=== PATIENT | female | born 1975 | race Caucasian/White ===

== ENCOUNTER 2018-01-03 19:36 | Inpatient (IN) | payer OTHER ==
[2018-01-03] MEDS ORDERED: SODIUM CHLORIDE 0.9% 1,000 ML IV ONE ×4 (19:56→23:13)
[2018-01-03] MEDS ORDERED: HYDROmorphone 1 MG/ML CARPUJECT IVP STA ×3 (19:56→23:13)
[2018-01-03] MEDS ORDERED: ONDANSETRON 4 MG/2 ML VIAL IVP STA (19:56)
--- NOTE | 2018-01-03 20:05 | ED Physician Documentation ---
PD HPI ABD PAIN - Stated complaint Stated Complaint: ABD PAIN - Chief complaint Chief Complaint: Abd Pain - History obtained from History obtained from: Patient, Family - History of Present Illness Timing - onset: Today Timing - duration: Days (1) Timing - details: Abrupt onset Pain level max: 10 Pain level now: 10 Quality: Cramping Location: All over / everywhere Radiation: Other (non-radiating) Improved by: Other (nothing) Worsened by: Eating (started after eating brisket.) Associated symptoms: Nausea, Vomiting. No: Fever, Hematemesis, Diarrhea, Constipation Similar symptoms before: Has not had sx before Recently seen: Not recently seen Review of Systems Ten Systems: 10 systems reviewed and negative Constitutional: denies: Fever, Chills Ears: denies: Ear pain Nose: denies: Rhinorrhea / runny nose, Congestion Throat: denies: Sore throat Cardiac: denies: Chest pain / pressure Respiratory: denies: Cough Skin: denies: Rash Musculoskeletal: denies: Neck pain, Back pain Neurologic: denies: Focal weakness, Numbness, Headache PD PAST MEDICAL HISTORY - Past Medical History Past Medical History: No - Past Surgical History Past Surgical History: No - Present Medications Home Medications: Ambulatory Orders Medication Instructions Recorded Confirmed Lisinopril 01/03/18 metFORMIN [Glucophage] 01/03/18 - Allergies Allergies/Adverse Reactions: Allergies Allergy/AdvReac Type Severity Reaction Status Date / Time No Known Drug Allergies Allergy Verified 01/03/18 19:50 - Living Situation Living Situation: reports: With family Living Arrangement: reports: At home - Social History Does the pt smoke?: No Does the pt drink ETOH?: No Does the pt have substance abuse?: No - Family History Family history: reports: Non contributory PD ED PE NORMAL - Vitals Vital signs reviewed: Yes - General General: Alert and oriented X 3, Other (very uncomfortable appearing.) - HEENT HEENT: Moist mucous membranes - Neck Neck: Supple, no meningeal sign - Cardiac Cardiac: RRR, Strong equal pulses - Respiratory Respiratory: No respiratory distress, Clear bilaterally - Abdomen Abdomen: Soft, Other (diffusely TTP ) - Back Back: No spinal TTP - Derm Derm: Warm and dry - Extremities Extremities: No edema - Neuro Neuro: Alert and oriented X 3 Results - Vitals Vitals: Vital Signs - 24 hr 09/01/03/18 01/03/18 19:47 21:12 21:46 Temperature 35.5 C L Heart Rate 92 80 81 Respiratory 23 18 18 Rate Blood Pressure 88/65 L 93/68 106/81 H O2 Saturation 100 100 100 01/04/18 00:01 Temperature Heart Rate 99 Respiratory 15 Rate Blood Pressure 128/90 H O2 Saturation 100 Oxygen O2 Source Nasal cannula - Labs Labs: Laboratory Tests 01/03/18 01/03/18 20:32 20:32 WBC 13.8 H RBC 5.37 Hgb 14.8 Hct 42.5 MCV 79.1 L MCH 27.5 MCHC 34.8 RDW 15.3 H Plt Count 237 MPV 7.3 L Neut # (Auto) 11.3 H Lymph # (Auto) 1.6 Ward # (Auto) 0.7 Eos # (Auto) 0.1 Baso # (Auto) 0.1 Absolute Nucleated RBC 0.01 Nucleated RBC % 0.1 Sodium 133 L Potassium 3.2 L Chloride 101 Carbon Dioxide 22 Anion Gap 10.0 BUN 21 H Creatinine 1.0 Estimated GFR (MDRD) 61 L Glucose 267 H Calcium 8.7 Total Bilirubin 2.3 H AST 127 H ALT 58 Alkaline Phosphatase 98 Total Protein 6.6 L Albumin 3.6 Globulin 3.0 Albumin/Globulin Ratio 1.2 Lipase > 4800 H - Rads (name of study) CT abd/pelvis Radiology: Prelim report reviewed, EMP read contemporaneously, See rad report (1. Pancreatitis with a large amount of peripancreatic edema extending into the root of the mesentery and bilateral anterior pararenal spaces. 2. Some areas of the pancreas appear slightly hypoperfused, such as the neck. Early necrosis not excluded. 3. Fatty liver and splenomegaly. 4. Mild ascites. 5. Calcified stones in the gallbladder without definite cholecystitis. ) RUQ US Radiology: Prelim report reviewed, EMP read contemporaneously, See rad report (Cholelithiasis, without evidence of biliary obstruction. ascites) PD MEDICAL DECISION MAKING - ED course Complexity details: reviewed results, re-evaluated patient, considered differential, d/w patient, d/w family, d/w immigration consultant ED course: Patient is a 42-year-old female with a history of diabetes, on metformin who presents to the emergency department with acute pancreatitis. Also has several gallstones but no cholecystitis. Given IV fluids, Phenergan, Zofran and Dilaudid. Pain well controlled. Discussed the case with Dr. Begum, hospitalist who accepts. He requested I consult general surgery and I discussed the case with general surgery on-call, Dr. Alcantara, who will consult and see the patient in the morning. This document was made in part using voice recognition software. While efforts are made to proofread this document, sound alike and grammatical errors may occur. Upon further history, she states that the pain is actually been ongoing for several days and saw her PCP yesterday. She was referred to gynecology for missed menses. - Sepsis Event Vital Signs: Vital Signs - 24 hr 01/03/18 01/03/18 01/03/18 19:47 21:12 21:46 Temperature 35.5 C L Heart Rate 92 80 81 Respiratory 23 18 18 Rate Blood Pressure 88/65 L 93/68 106/81 H O2 Saturation 100 100 100 01/04/18 00:01 Temperature Heart Rate 99 Respiratory 15 Rate Blood Pressure 128/90 H O2 Saturation 100 Oxygen O2 Source Nasal cannula Departure - Departure Disposition: [address] [facility] DC/Xfer Clinical Impression: Pancreatitis Qualifiers: Chronicity: acute Pancreatitis type: unspecified pancreatitis type Acute pancreatitis complication: unspecified Qualified Code(s): K85.90 - Acute pancreatitis without necrosis or infection, unspecified Condition: Stable
[2018-01-03] MEDS ORDERED: IOPAMIDOL-300 100 ML VIAL ONE (20:21)
[2018-01-03 20:50] LABS: BASOPHILS # (AUTO) 0.1 10^3/uL (0.0-0.1); BASOPHILS % (AUTO) 0.4 %; EOSINOPHILS # (AUTO) 0.1 10^3/uL (0.0-0.7); EOSINOPHILS % (AUTO) 0.5 %; HGB - HEMOGLOBIN 14.8 g/dL (12.0-16.0); LYMPHOCYTES # (AUTO) 1.6 10^3/uL (1.5-3.5); LYMPHOCYTES % (AUTO) 11.7 %; MEAN CORPUSCULAR HEMOGLOBIN 27.5 pg (27.0-31.0); MEAN CORPUSCULAR HGB CONC 34.8 g/dL (32.0-36.0); MEAN CORPUSCULAR VOLUME 79.1 fL (81.0-99.0); MEAN PLATELET VOLUME 7.3 fL (7.9-10.8); MONOCYTES # (AUTO) 0.7 10^3/uL (0.0-1.0); NEUTROPHILS # (AUTO) 11.3 10^3/uL (1.5-6.6); NEUTROPHILS % (AUTO) 82.4 %; PLT - PLATELET COUNT 237 10^3/uL (130-450); RED BLOOD COUNT 5.37 10^6/uL (4.20-5.40); RED CELL DISTRIBUTION WIDTH 15.3 % (12.0-15.0); WHITE BLOOD COUNT 13.8 x10^3/uL (4.8-10.8)
[2018-01-03 21:43] LABS: ALBUMIN 3.6 g/dL (3.2-5.5); ALBUMIN/GLOBULIN RATIO 1.2 (1.0-2.2); ALKALINE PHOSPHATASE 98 IU/L (42-121); ALT ALANINE AMINOTRANSFERASE 58 IU/L (10-60); AST ASPARTATE AMINOTRANSFERASE 127 IU/L (10-42); BILIRUBIN,TOTAL 2.3 mg/dL (0.2-1.0); BUN - BLOOD UREA NITROGEN 21 mg/dL (6-20); CALCIUM 8.7 mg/dL (8.5-10.3); CARBON DIOXIDE - CO2 22 mmol/L (21-32); CHLORIDE 101 mmol/L (101-111); GFR - MDRD 61 (>89); GLUCOSE 267 mg/dL (70-100); LIPASE > 4800 U/L (22-51); SODIUM 133 mmol/L (135-145); TOTAL PROTEIN 6.6 g/dL (6.7-8.2)
[2018-01-03] MEDS ORDERED: IOPAMIDOL-300 100 ML VIAL IVP ONE (22:34)
--- NOTE | 2018-01-03 22:59 | CT Report ---
Reason: diffuse abd pain, vomiting Procedure Date: 01/03/2018 Accession Number: [id number] / [id number] Procedure: CT - Abdomen/Pelvis W/ CPT Code: FULL RESULT: EXAM: CT ABDOMEN AND PELVIS EXAM DATE: 01/03/2018 10:45 PM. CLINICAL HISTORY: Diffuse abdominal pain, vomiting. COMPARISONS: None. TECHNIQUE: Routine helical CT imaging was performed through the abdomen and pelvis. IV contrast: ISOVUE 300 100mL. Enteric contrast: No. Reconstructions: Coronal and sagittal. In accordance with CT protocol optimization, one or more of the following dose reduction techniques were utilized for this exam: automated exposure control, adjustment of mA and/or KV based on patient size, or use of iterative reconstructive technique. FINDINGS: Lung Bases: Mild bibasilar atelectasis. Liver: Fatty infiltration. Gallbladder/Bile Ducts: Calcified stones in the gallbladder without obvious cholecystitis. Spleen: Enlarged at 14.0 cm. Pancreas: Extensive peripancreatic edema extending into the root of the mesentery and bilateral anterior pararenal spaces. Some areas of the pancreas appear slightly hypoperfused, such as the neck. No abscess or pseudocyst identified. Adrenal Glands: Normal. Kidneys: Normal. No masses or hydronephrosis. Peritoneal Cavity/Bowel: Mild ascites. No free air. No bowel obstruction seen. No diverticulitis. No lymphadenopathy. Appendix appears normal. Pelvic Organs: Normal. The bladder and visualized pelvic organs are within normal limits. Vasculature: No aneurysms or other significant abnormality. Bones: No significant abnormality. Other: None. IMPRESSION: 1. Pancreatitis with a large amount of peripancreatic edema extending into the root of the mesentery and bilateral anterior pararenal spaces. 2. Some areas of the pancreas appear slightly hypoperfused, such as the neck. Early necrosis not excluded. 3. Fatty liver and splenomegaly. 4. Mild ascites. 5. Calcified stones in the gallbladder without definite cholecystitis. RADIA
[2018-01-03] MEDS ORDERED: PROMETHAZINE INJ 25 MG in SODIUM CHLORIDE 0.9% 50 ML IV STA (23:13)
--- NOTE | 2018-01-03 23:46 | Ultrasound Report ---
Reason: pancreatitis Procedure Date: 01/03/2018 Accession Number: [id number] / [id number] Procedure: US - Abdomen Limited CPT Code: FULL RESULT: EXAM: ABDOMEN ULTRASOUND LIMITED, RUQ EXAM DATE: 01/03/2018 11:03 PM. CLINICAL HISTORY: Pancreatitis. COMPARISON: ABDOMEN/PELVIS W/ 01/03/2018. TECHNIQUE: Real-time scanning was performed with static images obtained. FINDINGS: Liver: Liver demonstrates heterogeneous echotexture, suggestive of fatty infiltration. It measures 14.2 cm. Main portal vein flow: Hepatopetal. Gallbladder: Cholelithiasis. No wall thickening. Biliary System: CBD measures 5 mm. No intrahepatic or extrahepatic ductal dilatation. Other: No right hydronephrosis. Ascites. IMPRESSION: Cholelithiasis, without evidence of biliary obstruction. Ascites. RADIA
[2018-01-04] MEDS ORDERED: PROMETHAZINE 25 MG/1 ML VIAL IM PRN (00:23)
[2018-01-04] MEDS ORDERED: oxyCODONE 5 MG TABLET PO PRN ×2 (00:23)
[2018-01-04] MEDS ORDERED: ZOLPIDEM 5 MG TABLET PO PRN (00:23)
[2018-01-04] MEDS ORDERED: ACETAMINOPHEN 325 MG TABLET PO PRN (00:23)
[2018-01-04] MEDS ORDERED: PROCHLORPERAZINE 10 MG/2 ML VIAL IVP PRN (00:23)
--- NOTE | 2018-01-04 00:31 | HISTORY & PHYSICAL EXAMINATION ---
Chief Complaint - Chief Complaint Chief Complaint: Abdominal Pain History of Present Illness - Admitted From Admitted From:: Emergency Department - History Obtained From Records Reviewed: Yes History obtained from: Patient Exam Limitations: None - History of Present Illness HPI Comment/Other: Patient is a 42-year-old female with a past medical history significant for type 2 diabetes and obesity who presented to the emergency department with a chief complaint of abdominal pain. The patient states that her abdominal pain initially started about 2 weeks ago. She states that that time the abdominal pain was occurring off and on and was mild to moderate in intensity. She states that it was located in the epigastric to left upper quadrant area. She states over the last 2 weeks the abdominal pain has progressed gradually. Over the last week she is began to develop nausea associated with the abdominal pain. She states that over the last 3 days she has been having episodes of emesis. She states that the pain has also become much more severe. She states at its worst it is a 10 out of 10 pain. She states the pain has now become diffuse over the entire left side of her abdomen radiating to her back. She states that yesterday she did go see her primary care physician who advised that she go to the emergency department if the pain is truly that severe. The patient decided not to come to the emergency department. She states that today she continued to have nausea vomiting and abdominal pain which was up to a 10 out of 10. She states the abdominal pain was radiating to the back and she had decreased appetite. Prior to coming to the emergency department the patient did have dinner where she states she ate some briskits but was only able to eat very little due to the severe pain when she ate. She states that over the last 2 weeks she has noted that the pain is worse when she does eat. She also states that she has been feeling dizzy the last couple of days. She admits to chills but no fever. She states the only thing that makes the pain better is resting. She states that she has never had pain like this before. The patient does state that she started taking lisinopril just 2 days ago. She denies any polyuria or polydipsia. She denies any urinary urgency, frequency or dysuria. She denies any diarrhea. She denies any cough or chest pain. The patient denies any constipation or abdominal distention. The patient denies any alcohol use. Patient denies any headaches, blurred vision, runny nose, sore throat, nasal congestion, difficulty swallowing, shortness of air, orthopnea, PND, increased lower extremity swelling, palpitations, joint pain, joint swelling, muscle aches, neck stiffness, hair loss, skin rash, recent unintentional weight loss, night sweats or any focal neurologic deficits. On presentation to the emergency department the patient was afebrile, tachycardic with heart rate of 92 and hypotensive with a blood pressure 88/65. The patient appeared to be in significant distress as she was writhing in pain. The patient was also tachypneic with a respiratory rate of 23 but she was saturating well on room air. The patient underwent routine lab work which rev ealed a mild leukocytosis of 13.8, hyponatremia with a sodium of 133, hypokalemia with a potassium of 3.2, hyperglycemia with a glucose of 267, elevated bilirubin of 2.3, an elevated AST of 127 and an elevated lipase of greater than 4800. The patient had severe tenderness on abdominal examination a nd was complaining of severe pain. The patient underwent a CT of her abdomen and pelvis which revealed pancreatitis with large amount of peripancreatic edema extending into the root of the mesenteric and bilateral anterior pararenal spaces. She also had some areas of pancreas appearing slightly hypoperfused concerning for early necrosis. She is also found to have fatty liver and splenomegaly with mild ascites. The patient's gallbladder had calcified stones without definite cholecystitis. The patient underwent an abdominal ultrasound which revealed cholelithiasis without evidence of biliary obstruction. The patient was admitted to the medical oliva with pancreatitis likely secondary to g allstones. Surgery was notified in the emergency department and asked that the hospitalist team admit the patient and that they would see the patient in consultation. History - Past Medical History Cardiovascular: reports: Other (Obesity) Endocrine/Autoimmune: reports: Type 2 diabetes - Past Surgical History /MANAGER MEDICAL: reports: Tubal ligation - Family & Social History Family History: Mother: Diabetes, Type 2, Father: Diabetes, Type 2 Living arrangement: At home Living Situation: With spouse/s.o., With family Social History Notes: Patient and her recently moved up to [place] from [place]. The patient lives in [place] with her to whom she has been for 21 years and her 3 children. 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 She denies any history of tobacco use, alcohol use or any illicit drug use. - POLST Patient has POLST: No POLST Status: Full Code Meds/Allgy - Home Medications Home Medications: Ambulatory Orders Medication Instructions Recorded Confirmed Lisinopril 01/03/18 metFORMIN [Glucophage] 01/03/18 - Allergies Allergies/Adverse Reactions: Allergies Allergy/AdvReac Type Severity Reaction Status Date / Time No Known Drug Allergies Allergy Verified 01/03/18 19:50 Review of Systems - Other Findings Other Findings: A comprehensive review of systems was performed the pertinent positives and negatives are stated above in the HPI and the remainder of the review of systems is negative. Exam - Vital Signs Reviewed Vital Signs: Yes Vital Signs: Vital Signs x48h Temp Pulse Resp BP Pulse Ox 01/04/18 00:01 99 15 128/90 H 100 01/03/18 21:46 81 18 106/81 H 100 01/03/18 21:12 80 18 93/68 100 01/03/18 19:47 35.5 C L 92 23 88/65 L 100 - Physical Exam General Appearance: positive: Moderate distress (severe pain, cannot seem to get comfortable in the bed), Lethargic Eyes Bilateral: positive: Normal inspection, PERRL, EOMI, No lid inflammation, Conjunctivae nml, No scleral icterus ENT: positive: ENT inspection nml, Pharynx nml, Dry mucous membranes. negative: Purulent nasal drainage, Pharyngeal erythema, Oral lesions Neck: positive: Nml inspection, Thyroid nml, No JVD, Trachea midline. negative: Thyromegaly, Lymphadenopathy (R), Lymphadenopathy (L), Carotid bruit, Tracheal deviation Respiratory: positive: Chest non-tender, Breath sounds nml, Other (Tachypnic). negative: Wheezes, Rales, Rhonchi Cardiovascular: positive: No murmur, No gallop, Tachycardia Peripheral Pulses: positive: 2+ Abdomen: positive: Tenderness (Severe tenderness with mild palpation, diffuse but worse on the left side of her abdomen), Guarding, Rebound, Splenomegaly Back: positive: Nml inspection. negative: CVA tenderness (R), CVA tenderness (L) Skin: positive: Color nml, No rash, Warm, Dry. negative: Cyanosis, Diaphoresis, Pallor Extremities: positive: Non-tender, Full ROM, Nml appearance, No pedal edema Neurologic/Psychiatric: positive: Oriented x3, CN's nml (2-12), Motor nml, Sensation nml, Mood/affect nml Conclusion/Plan - Problem List (1) Pancreatitis Conclusion/Plan: The patient presents with acute pancreatitis with symptoms going on for the last 2 weeks and becoming gradually worse and severe over the last 2 days with abdominal pain radiating to the back as well as associated nausea and vomiting. On presentation the patient did have a mildly elevated bilirubin of 2.3 with an elevated AST. The patient's abdominal ultrasound and CT both showed cholelithiasis without cholecystitis or obvious biliary ductal dilation. The patient's lipase was found to be greater than 4800. The patient does have a slightly elevated WBC. CT of the abdomen and pelvis shows severe pancreatitis with possible early necrosis of the pancreatic neck. The patient does have diffuse severe tenderness on examination but does not appear to be grossly septic. The patient's pancreatitis appears most likely to be gallstone pancreatitis as the patient is not a drinker and only started taking lisinopril 2 days ago. Plan: Supportive care IV fluids N.p.o. IV Dilaudid as needed for pain control IV Zofran, Compazine and Phenergan for nausea control We will hold off on giving antibiotics at this point as the patient does not clearly have necrotizing pancreatitis and has not spiked fever. If the patient does show worsening symptoms or begin spiking fever or has worsening WBC we will consider starting the patient on IV antibiotics. Lipid profile to look for hypertriglyceridemia Surgical consult for cholecystectomy Qualifiers: Chronicity: acute Pancreatitis type: unspecified pancreatitis type Acute pancreatitis complication: unspecified Qualified Code(s): K85.90 - Acute pancreatitis without necrosis or infection, unspecified (2) Cholelithiasis Conclusion/Plan: The patient does have cholelithiasis on CT and abdominal ultrasound. Although the patient does not have any biliary ductal dilation or cholecystitis at this time it is likely that the patient developed pancreatitis secondary to gallstone. The patient does have elevated bilirubin of 2.3 and slightly elevated AST. Plan: Surgical consult as patient likely needs a cholecystectomy for definitive treatment of her pancreatitis. Continue treatment of pancreatitis with IV fluids, bowel rest and symptom relief Qualifiers: Cholelithiasis location: gallbladder Cholecystitis presence: without cholecystitis Biliary obstruction: without biliary obstruction Qualified Code(s): K80.20 - Calculus of gallbladder without cholecystitis without obstruction (3) Diabetes Conclusion/Plan: The patient has a history of type 2 diabetes and uses metformin at home. She was also recently started on lisinopril for proteinuria. On presentation the patient does have an elevated blood glucose of 267. This is likely secondary to the stress response from ongoing pancreatitis. Plan: Patient will be placed on n.p.o. sliding scale insulin We will hold the patient's metformin while she is hospitalized We will check a hemoglobin A1c We will check blood glucose 4 times daily and monitor closely Once patient can eat we will start her on a diabetic diet. Qualifiers: Diabetes mellitus type: type 2 Diabetes mellitus chcf insulin use: without chcf use Diabetes mellitus complication status: with hyper glycemia Qualified Code(s): E11.65 - Type 2 diabetes mellitus with hyperg lycemia (4) Hypokalemia Conclusion/Plan: The patient has hypokalemia on presentation with a potassium of 3.2. This is likely secondary to persistent nausea and vomiting over the last few days. Patient will be given potassium replacement with IV fluid and we will continue to monitor the patient's potassium. (5) Hyponatremia Conclusion/Plan: The patient does have hyponatremia on presentation with a sodium of 133. The patient appears to have hypovolemic hyponatremia she does appear to be dehydrated secondary to her ongoing pancreatitis. The patient is likely third spacing due to her pancreatitis which will cause her severe dehydration if she is not given adequate fluid resuscitation. We will aggressively give the patient IV fluids and continue to monitor the patient's sodium. (6) Fatty liver Conclusion/Plan: The patient denies any history of liver disease. The patient does have fatty liver on CT of her abdomen and pelvis. Patient does have risk factors of d iabetes and obesity. Patient will need improved diabetic control and weight loss as well as exercise and avoidance of fatty foods to improve fatty liver disease. Given the ongoing pancreatitis this is not high-priority at this time. It is something the patient needs to focus as an outpatient. (7) Obesity (BMI 30.0-34.9) Conclusion/Plan: Patient is obese with a BMI of 33.2. The patient actually appears to have a greater BMI on examination. Either way the patient is obese. She does need to lose weight. She needs to improve her diet and exercise. The patient was given some counseling regarding this however again our focus right now is treatment o f her pancreatitis. - Lab Results Lab results reviewed: Yes Fish Bones: 01/03/18 20:32 01/03/18 20:32 Other Lab Results: Laboratory Results WBC 13.8 x10^3/uL (4.8-10.8) H 01/03/18 20:32 RBC 5.37 10^6/uL (4.20-5.40) 01/03/18 20:32 Hgb 14.8 g/dL (12.0-16.0) 01/03/18 20:32 Hct 42.5 % (37.0-47.0) 01/03/18 20: MCV 79.1 fL (81.0-99.0) L 01/03/18:32 MCH 27.5 pg (27.0-31.0) 01/03/18 20: MCHC 34.8 g/dL (32.0-36.0) 01/03/18: RDW 15.3 % (12.0-15.0) H 01/03/18 20:32 Plt Count 237 10^3/uL (130-450) 01/03/18 20:32 MPV 7.3 fL (7.9-10.8) L 01/03/18 20:32 Neut # (Auto) 11.3 10^3/uL (1.5-6.6) H 01/03/18 20:32 Lymph # (Auto) 1.6 10^3/uL (1.5-3.5) 01/03/18 20:32 [place] # (Auto) 0.7 10^3/uL (0.0-1.0) 01/03/18 20:32 Eos # (Auto) 0.1 10^3/uL (0.0-0.7) 01/03/18 20:32 Baso # (Auto) 0.1 10^3/uL (0.0-0.1) 01/03/18 20:32 Absolute Nucleated RBC 0.01 x10^3/uL 01/03/18 20:32 Nucleated RBC % 0.1 /100WBC 01/03/18 20:32 Sodium 133 mmol/L (135-145) L 01/03/18 20:32 Potassium 3.2 mmol/L (3.5-5.0) L 01/03/18 20:32 Chloride 101 mmol/L (101-111) 01/03/18 20:32 Carbon Dioxide 22 mmol/L (21-32) 01/03/18 20:32 Anion Gap 10.0 (6-13) 01/03/18 20:32 BUN 21 mg/dL (6-20) H 01/03/18 20:32 Creatinine 1.0 mg/dL (0.4-1.0) 01/03/18 20:32 Estimated GFR (MDRD) 61 (>89) L 01/03/18 20:32 Glucose 267 mg/dL (70-100) H 01/03/18 20:32 Calcium 8.7 mg/dL (8.5-10.3) 01/03/18 20:32 Total Bilirubin 2.3 mg/dL (0.2-1.0) H 01/03/18 20:32 AST 127 IU/L (10-42) H 01/03/18 20:32 ALT 58 IU/L (10-60) 01/03/18 20:32 Alkaline Phosphatase 98 IU/L (42-121) 01/03/18 20:32 Total Protein 6.6 g/dL (6.7-8.2) L 01/03/18 20:32 Albumin 3.6 g/dL (3.2-5.5) 01/03/18 20:32 Globulin 3.0 g/dL (2.1-4.2) 01/03/18 20:32 Albumin/Globulin Ratio 1.2 (1.0-2.2) 01/03/18 20:32 Lipase > 4800 U/L (22-51) H 01/03/18 20:32 - Diagnostic Imaging Results Diagnostic Imaging Results: positive: Final report reviewed Diagnostic Imaging Results Comments: Ultrasound abdomen Impression: Cholelithiasis, without evidence of biliary obstruction. Ascites. Abdomen/pelvis CT Impression: 1. Pancreatitis with a large amount of peripancreatic edema extending into the root of the mesenteric and bilateral anterior pararenal spaces. 2. Some areas of the pancreas appear slightly hypoperfused, such as the neck. Early necrosis not excluded. 3. Fatty liver and splenomegaly. 4. Mild ascites 5. Calcified stones in the gallbladder without definite cholecystitis. Core Measures - Anticipated LOS I expect patient to be DC'd or transferred within 96 hours.: Yes - DVT/VTE - Prophylaxis VTE/DVT Prophylaxis med ordered at admit?: Yes
[2018-01-04] MEDS: SODIUM CHLORIDE FLUSH 0.9% 10 ML SYRINGE IVP SCH ×3 (01:35→18:18)
[2018-01-04] MEDS: ONDANSETRON 4 MG/2 ML VIAL IVP PRN ×3 (01:35→18:19)
[2018-01-04] MEDS: HYDROmorphone 1 MG/ML CARPUJECT IVP PRN ×3 (01:56→09:08)
[2018-01-04] MEDS: NS W/20 MEQ KCL 1,000 ML IV SCH ×3 (02:10→18:19)
[2018-01-04] MEDS: SODIUM CHLORIDE FLUSH 0.9% 10 ML SYRINGE IVP PRN (03:50)
[2018-01-04 05:54] LABS: BASOPHILS % (AUTO) 0.1 %; HGB - HEMOGLOBIN 15.9 g/dL (12.0-16.0); LYMPHOCYTES # (AUTO) 0.7 10^3/uL (1.5-3.5); LYMPHOCYTES % (AUTO) 5.7 %; MEAN CORPUSCULAR HEMOGLOBIN 27.4 pg (27.0-31.0); MEAN CORPUSCULAR HGB CONC 33.7 g/dL (32.0-36.0); MEAN CORPUSCULAR VOLUME 81.4 fL (81.0-99.0); MEAN PLATELET VOLUME 7.5 fL (7.9-10.8); MONOCYTES # (AUTO) 0.3 10^3/uL (0.0-1.0); MONOCYTES % (AUTO) 2.2 %; PLT - PLATELET COUNT 218 10^3/uL (130-450); RED BLOOD COUNT 5.81 10^6/uL (4.20-5.40); RED CELL DISTRIBUTION WIDTH 15.6 % (12.0-15.0); WHITE BLOOD COUNT 11.9 x10^3/uL (4.8-10.8)
[2018-01-04] MEDS: INSULIN REGULAR HUMAN 100 UNIT/1 ML 10 ML MDV SUBQ SCH ×3 (06:17→18:24)
[2018-01-04 06:41] LABS: HB2 TOTAL 17.4 g/dL; HEMOGLOBIN A1C 1.2 g/dL; HEMOGLOBIN A1C % 8.5 % (4.6-6.2)
[2018-01-04 06:53] LABS: CHOL/HDL RATIO 3.5 (<4.4); CHOLESTEROL 179 mg/dL; HDL CHOLESTEROL 51 mg/dL; LDL CHOLESTEROL,CALCULATED 111 mg/dL; LDL/HDL RATIO 2.2 (<4.4); LIPASE 1342 U/L (22-51); MAGNESIUM 1.6 mg/dL (1.7-2.8); PHOSPHORUS 4.3 mg/dL (2.5-4.6); VLDL CHOLESTEROL 17 mg/dL
[2018-01-04 06:55] LABS: AMYLASE 829 U/L (28-100)
--- NOTE | 2018-01-04 08:18 | PROVIDER PROGRESS NOTE ---
Subjective - Prog Note Date Prog Note Date: 01/04/18 Prog Note Time: 08:18 - Subjective Pt reports feeling: No change Subjective: Cynthia complains of ongoing pain located in abdominal LUQ, LLQs that extends into her mid back. She denies headaches, shortness of breath, diarrhea, rashes,dizziness, or a new cough. Her son is at the bedside for this exam. Current Medications - Current Medications Current Medications: Active Medications Acetaminophen (Tylenol) 650 mg PO Q4HR PRN PRN Reason: Pain 1 to 4 Enoxaparin Sodium (Lovenox) 40 mg SUBQ DAILY [facility] Last Admin: 01/05/18 08:40 Dose: 40 mg Hydromorphone HCl (Dilaudid Water Resources Engineer 20mg/100ml) 0 mg IV PRN PRN; Protocol PRN Reason: PAIN Last Admin: 01/05/18 02:17 Dose: 0.2 mg Famotidine (Pepcid 20 Mg/50 Ml) 50 mls @ 100 mls/hr IV BID [facility] Last Infusion: 01/05/18 09:54 Dose: Infused Sodium Chloride (Normal Saline 0.9%) 1,000 mls @ 125 mls/hr IV .Q8H [facility] Last Admin: 01/05/18 07:55 Dose: 125 mls/hr Potassium Phosphate 15 mmol/ (Sodium Chloride) 255 mls @ 42.5 mls/hr IV ONCE ONE Stop: 01/05/18 14:59 Last Admin: 01/05/18 09:40 Dose: 42.5 mls/hr Insulin Aspart (Novolog) 5 unit SUBQ Q6H [facility] Last Admin: 01/05/18 06:39 Dose: 5 unit Insulin Glargine (Lantus Solostar) 10 unit SUBQ QPM [facility] Last Admin: 01/04/18 20:51 Dose: 10 unit Insulin Human Regular (Novolin R) 1 - 5 unit SUBQ Q6HR [facility]; Protocol Last Admin: 01/05/18 06:40 Dose: 4 unit Lorazepam (Ativan) 0.5 mg PO Q6H PRN PRN Reason: Anxiety Ondansetron HCl (Zofran Inj) 4 mg IVP Q4HR PRN PRN Reason: Nausea / Vomiting Last Admin: 01/05/18 04:00 Dose: 4 mg Oxycodone HCl (Roxicodone) 5 mg PO Q4HR PRN PRN Reason: Pain 5 to 7 Oxycodone HCl (Roxicodone) 10 mg PO Q4HR PRN PRN Reason: Pain 8 to 10 Last Admin: 01/04/18 10:06 Dose: 10 mg Polyethylene Glycol (Miralax) 17 gm PO DAILY [facility] Last Admin: 01/05/18 08:40 Dose: 17 gm Prochlorperazine Edisylate (Compazine Inj) 10 mg IVP Q6HR PRN PRN Reason: Nausea / Vomiting Promethazine HCl (Phenergan Inj) 25 mg IM Q6HR PRN PRN Reason: Nausea / Vomiting Sodium Chloride (Normal Saline Flush 0.9%) 10 ml IVP PRN PRN PRN Reason: NEEDED PER PROVIDER ORDERS Last Admin: 01/05/18 04:01 Dose: 10 ml Sodium Chloride (Normal Saline Flush 0.9%) 10 ml IVP 0100,0900,1700 [facility] Last Admin: 01/05/18 08:25 Dose: Not Given Zolpidem Tartrate (Ambien) 5 mg PO QPM PRN PRN Reason: Insomnia Lisinopril 5 mg PO DAILY 01/03/18 metFORMIN [Glucophage] 500 mg PO BIDWM 01/03/18 Objective - Vital Signs/Intake & Output Reviewed Vital Signs: Yes Vital Signs: Vital Signs x48h Temp Pulse Resp BP Pulse Ox 01/04/18 01:15 36.5 C 91 18 104/62 97 Intake & Output: Intake & Output 01/01/18 01/02/18 01/03/18 01/04/18 23:59 23:59 23:59 23:59 Intake Total 1000 1773 Balance 1000 1773 - Objective General Appearance: positive: Alert, Moderate distress, Anxious, Lethargic Eyes Bilateral: positive: Normal inspection ENT: positive: ENT inspection nml, Pharynx nml, Dry mucous membranes Neck: positive: Nml inspection, Thyroid nml, No JVD Respiratory: positive: Chest non-tender, No respiratory distress, Other (diminished) Cardiovascular: positive: Regular rate & rhythm, No murmur, No gallop Peripheral Pulses: 1+ Radial (R), 1+ Radial (L) Abdomen: positive: Tenderness, Guarding, Abnml bowel sounds (hyper), Other (obese, soft) Back: positive: Nml inspection Skin: positive: No rash, Warm, Dry, Diaphoresis, Pallor Extremities: positive: Non-tender, Full ROM, Nml appearance Neurologic/Psychiatric: positive: Oriented x3, CN's nml (2-12), Motor nml, Sensation nml, Mood/affect nml, Depressed mood/affect Reflexes: Bicep (R): 3+, Bicep (L): 3+ - Lab Results Fish Bones: 01/05/18 05:28 01/05/18 05:28 Other Labs: Lab Results x24hrs 01/04/18 01/04/18 01/04/18 Range/Units 07:45 05:37 05:37 WBC (4.8-10.8) x10^3/uL RBC (4.20-5.40) 10^6/uL Hgb (12.0-16.0) g/dL Hct (37.0-47.0) % MCV (81.0-99.0) fL MCH (27.0-31.0) pg MCHC (32.0-36.0) g/dL RDW (12.0-15.0) % Plt Count (130-450) 10^3/uL MPV (7.9-10.8) fL Neut # (Auto) (1.5-6.6) 10^3/uL Lymph # (Auto) (1.5-3.5) 10^3/uL [place] # (Auto) (0.0-1.0) 10^3/uL Eos # (Auto) (0.0-0.7) 10^3/uL Baso # (Auto) (0.0-0.1) 10^3/uL Absolute Nucleated RBC x10^3/uL Nucleated RBC % /100WBC Sodium (135-145) mmol/L Potassium (3.5-5.0) mmol/L Chloride (101-111) mmol/L Carbon Dioxide (21-32) mmol/L Anion Gap (6-13) BUN (6-20) mg/dL Creatinine (0.4-1.0) mg/dL Estimated GFR (MDRD) (>89) Glucose (70-100) mg/dL POC Whole Bld Glucose 356 H (70 - 100) mg/dL Glycated Hemoglobin (4.6-6.2) % Estim Average Glucose (70-100) Lactic Acid 1.8 (0.5-2.2) mmol/L Calcium (8.5-10.3) mg/dL Phosphorus (2.5-4.6) mg/dL Magnesium (1.7-2.8) mg/dL Total Bilirubin (0.2-1.0) mg/dL AST (10-42) IU/L ALT (10-60) IU/L Alkaline Phosphatase (42-121) IU/L Lactate Dehydrogenase 167 (91-225) IU/L Total Protein (6.7-8.2) g/dL Albumin (3.2-5.5) g/dL Globulin (2.1-4.2) g/dL Albumin/Globulin Ratio (1.0-2.2) Triglycerides ( - 149) mg/dL Cholesterol ( - 199) mg/dL LDL Cholesterol, Calc ( - 129) mg/dL VLDL Cholesterol mg/dL HDL Cholesterol (60 - ) mg/dL LDL/HDL Ratio (<4.4) Cholesterol/HDL Ratio (<4.4) Amylase (28-100) U/L Lipase (22-51) U/L 01/04/18 01/04/18 01/04/18 Range/Units 05:37 05:37 05:37 WBC 11.9 H (4.8-10.8) x10^3/uL RBC 5.81 H (4.20-5.40) 10^6/uL Hgb 15.9 (12.0-16.0) g/dL Hct 47.3 H (37.0-47.0) % MCV 81.4 (81.0-99.0) fL MCH 27.4 (27.0-31.0) pg MCHC 33.7 (32.0-36.0) g/dL RDW 15.6 H (12.0-15.0) % Plt Count 218 (130-450) 10^3/uL MPV 7.5 L (7.9-10.8) fL Neut # (Auto) 11.0 H (1.5-6.6) 10^3/uL Lymph # (Auto) 0.7 L (1.5-3.5) 10^3/uL [place] # (Auto) 0.3 (0.0-1.0) 10^3/uL Eos # (Auto) 0.0 (0.0-0.7) 10^3/uL Baso # (Auto) 0.0 (0.0-0.1) 10^3/uL Absolute Nucleated RBC 0.05 x10^3/uL Nucleated RBC % 0.4 /100WBC Sodium (135-145) mmol/L Potassium (3.5-5.0) mmol/L Chloride (101-111) mmol/L Carbon Dioxide (21-32) mmol/L Anion Gap (6-13) BUN (6-20) mg/dL Creatinine (0.4-1.0) mg/dL Estimated GFR (MDRD) (>89) Glucose (70-100) mg/dL POC Whole Bld Glucose (70 - 100) mg/dL Glycated Hemoglobin 8.5 H (4.6-6.2) % Estim Average Glucose 197 H (70-100) Lactic Acid (0.5-2.2) mmol/L Calcium (8.5-10.3) mg/dL Phosphorus 4.3 (2.5-4.6) mg/dL Magnesium 1.6 L (1.7-2.8) mg/dL Total Bilirubin (0.2-1.0) mg/dL AST (10-42) IU/L ALT (10-60) IU/L Alkaline Phosphatase (42-121) IU/L Lactate Dehydrogenase (91-225) IU/L Total Protein (6.7-8.2) g/dL Albumin (3.2-5.5) g/dL Globulin (2.1-4.2) g/dL Albumin/Globulin Ratio (1.0-2.2) Triglycerides 83 ( - 149) mg/dL Cholesterol 179 ( - 199) mg/dL LDL Cholesterol, Calc 111 ( - 129) mg/dL VLDL Cholesterol 17 mg/dL HDL Cholesterol 51 L (60 - ) mg/dL LDL/HDL Ratio 2.2 (<4.4) Cholesterol/HDL Ratio 3.5 (<4.4) Amylase 829 H* (28-100) U/L Lipase 1342 H (22-51) U/L 01/04/18 01/03/18 01/03/18 Range/Units 05:28 20:32 20:32 WBC 13.8 H (4.8-10.8) x10^3/uL RBC 5.37 (4.20-5.40) 10^6/uL Hgb 14.8 (12.0-16.0) g/dL Hct 42.5 (37.0-47.0) % MCV 79.1 L (81.0-99.0) fL MCH 27.5 (27.0-31.0) pg MCHC 34.8 (32.0-36.0) g/dL RDW 15.3 H (12.0-15.0) % Plt Count 237 (130-450) 10^3/uL MPV 7.3 L (7.9-10.8) fL Neut # (Auto) 11.3 H (1.5-6.6) 10^3/uL Lymph # (Auto) 1.6 (1.5-3.5) 10^3/uL [place] # (Auto) 0.7 (0.0-1.0) 10^3/uL Eos # (Auto) 0.1 (0.0-0.7) 10^3/uL Baso # (Auto) 0.1 (0.0-0.1) 10^3/uL Absolute Nucleated RBC 0.01 x10^3/uL Nucleated RBC % 0.1 /100WBC Sodium 133 L (135-145) mmol/L Potassium 3.2 L (3.5-5.0) mmol/L Chloride 101 (101-111) mmol/L Carbon Dioxide 22 (21-32) mmol/L Anion Gap 10.0 (6-13) BUN 21 H (6-20) mg/dL Creatinine 1.0 (0.4-1.0) mg/dL Estimated GFR (MDRD) 61 L (>89) Glucose 267 H (70-100) mg/dL POC Whole Bld Glucose 327 H (70 - 100) mg/dL Glycated Hemoglobin (4.6-6.2) % Estim Average Glucose (70-100) Lactic Acid (0.5-2.2) mmol/L Calcium 8.7 (8.5-10.3) mg/dL Phosphorus (2.5-4.6) mg/dL Magnesium (1.7-2.8) mg/dL Total Bilirubin 2.3 H (0.2-1.0) mg/dL AST 127 H (10-42) IU/L ALT 58 (10-60) IU/L Alkaline Phosphatase 98 (42-121) IU/L Lactate Dehydrogenase (91-225) IU/L Total Protein 6.6 L (6.7-8.2) g/dL Albumin 3.6 (3.2-5.5) g/dL Globulin 3.0 (2.1-4.2) g/dL Albumin/Globulin Ratio 1.2 (1.0-2.2) Triglycerides ( - 149) mg/dL Cholesterol ( - 199) mg/dL LDL Cholesterol, Calc ( - 129) mg/dL VLDL Cholesterol mg/dL HDL Cholesterol (60 - ) mg/dL LDL/HDL Ratio (<4.4) Cholesterol/HDL Ratio (<4.4) Amylase (28-100) U/L Lipase > 4800 H (22-51) U/L ABX Reporting Has patient been on IV antibiotics over the past 48 hours?: No Assessment/Plan - Problem List (1) Pancreatitis Impression: The patient has a large amount of peripancreatic edema extending into the root of the mesentery and bilateral pararenal spaces. Early necrosis cannot be excluded. Upon exam the patient complaints of pain in her LUQ and LLQ that goes into her mid-back. She had an elevated lipase ~4800, that improved to 1342 today. She remains NPO, and was started on a VIBRATING SCREED OPERATOR diluadid pump today for more appropriate pain control. Possible causes include; the recent addition of lisinopril, or uncontrolled diabetes. The patient denies alcohol use, recent trauma or illness, smoking, illegal drug use, or a family history. Plan: Continue plan, NPO, IVFs, VIBRATING SCREED OPERATOR, anti-emetics, and await general surgery in which she will need her gallbladder removed. Qualifiers: Chronicity: acute Pancreatitis type: unspecified pancreatitis type Acute pancreatitis complication: unspecified Qualified Code(s): K85.90 - Acute pancreatitis without necrosis or infection, unspecified (2) Cholelithiasis Impression: Upon presentation to the ED, an abdominal CT showed calcified stones in the gallbladder without definite cholecystitits. An abdominal ultrasound confirmed this finding with cholelithiasis as the impression upon admission. Plan: General surgery will remove the patient's gallbladder after her pancreatitis is resolved. Qualifiers: Cholelithiasis location: gallbladder Cholecystitis presence: without sahil cystitis Biliary obstruction: without biliary obstruction Qualified Code(s): K80.20 - Calculus of gallbladder without cholecystitis without obstruction (3) Abdominal pain Impression: The patient describes her pain as stabbing, hot, constant and it is very tender with light palpation. This started about 24 hours prior to presenting to the ED, and this can be contributed to her acute illness. She denies bleeding, or problems urinating. She states that the pain starts under her left breast all the way down to her groin, to her left flank, and extends to her left mid-back. This is being treated with a dilaudid VIBRATING SCREED OPERATOR. Plan: Continue with pain control, anti-emetics, and frequent nursing cares. Qualifiers: Abdominal location: generalized Qualified Code(s): R10.84 - Generalized abdominal pain (4) Angioedema Impression: One the patient's presenting symptoms was angioedema and was recently prescribed lisinopril. She denies any problems with airway clearance and today, this is resolved. Lisinopril will be added to her allergy list. Plan: continue to monitor. Qualifiers: Encounter type: initial encounter Qualified Code(s): T78.3XXA - An gioneurotic edema, initial encounter (5) Fatty liver Impression: Upon imaging the patient is noted to have a fatty liver, and this is apparent upon exam as she has an enlarged abdominal girth and has been diabetic for at least the past 5 years. The patient denies alcoholism or a history of hepatitis. Plan: Continue to monitor and encourage better blood sugar control at home. (6) Hypokalemia Impression: The patient's potassium upon admit was only mildly low at 3.2, and she remains on IVF with 20 Meq. This is likely due to her recent vomiting and lack of PO intake. Plan: Continue to monitor daily labs. (7) Obesity (BMI 30.0-34.9) Impression: The patient has an elevated BMI of 33.2 today and this has been her baseline since being diagnosed with diabetes. Plan: Encouraged a weight management program after this acute illness. (8) Diabetes mellitus type 2, uncontrolled, with complications Impression: The patient's hemoglobin A1C was 8.5% on 01/04/18 showing poor control. She is on metformin at home, that is now on hold. She remains on nightly Lantus at 10 units, and NPO SSI with routine blood sugar checks. Q6H scheduled Aspart at 5 units was added. Early AM sugar today was elevated at 356. Plan: Continue care and adjust insulin as needed.
[2018-01-04] MEDS: FAMOTIDINE 20 MG/50 ML 50 ML IV SCH ×2 (09:13→20:51)
[2018-01-04] MEDS: ENOXAPARIN 40 MG/0.4 ML SYRINGE SUBQ SCH (09:14)
[2018-01-04] MEDS: POLYETHYLENE GLYCOL 3350 17 GM PACKET PO SCH (09:25)
[2018-01-04] MEDS ORDERED: HYDROmorphone 1 MG/ML CARPUJECT IVP PRN (10:51)
[2018-01-04] MEDS ORDERED: HYDROmorphone PCA 20MG/100ML IV PRN (12:33)
--- NOTE | 2018-01-04 12:50 | CONSULTATION NOTE ---
Subjective - General Admit Date: 01/04/18 Procedure Performed: None yet. - Review of Systems General: positive: Other (Patient looks and feels terrible.) HEENT: positive: No symptoms Pulmonary: positive: Shortness of breath (Very mild.) Cardiovascular: positive: No symptoms Gastrointestinal: positive: Nausea, Vomiting, Abdominal pain (Severe.) Genitourinary: positive: No symptoms Skin: positive: No symptoms Psychiatric: positive: No symptoms All Other Systems: positive: Reviewed and negative Objective - Patient Data Reviewed Vital Signs: Yes - Lab Results Lab Results: 01/05/18 05:28 01/05/18 05:28 - Physical Exam General Appearance: positive: Other (Looks terrible in bed with significant pain and fearful of further pain.) Eyes Bilateral: positive: No lid inflammation, Conjunctivae nml, No scleral icterus ENT: positive: Dry mucous membranes Neck: positive: Trachea midline Respiratory: positive: Chest non-tender, Other (Tachypneic.) Cardiovascular: positive: Regular rate & rhythm Abdomen: positive: No distention, Tenderness, Guarding, Abnml bowel sounds Skin: positive: Pallor Extremities: positive: Nml appearance Neurologic/Psychiatric: positive: Oriented x3 Impression/Plan - Problem List Problem List: Severe pancreatitis with gallstones as the cause as the patient does not drink any alcohol. Will await for the pancreatitis to resolve prior to operating to remove the source of the stones (gallbladder). On admission, patient has fulfilled many of Dmitriy's criteria and we should follow as this patient has the makings of severe pancreatitis. If necrosis or infection become evident patient may need to be transferred as she will exceed our capabilities to care for her. I explained to the patient and her hysband that I was NOT doing a detailed abdominal examination as it was very painful and would not reveal any useful data. The next 24-48 hours will be telling. Either there will be relatively fast improvement or not. At the time of the laparoscopic cholecystectomy it will be important to obtain an intraoperative cholangiogram.
[2018-01-04] MEDS: INSULIN ASPART 300 UNIT/3 ML PEN SUBQ SCH ×2 (13:36→18:18)
[2018-01-04] MEDS ORDERED: MAGNESIUM SULFATE 2 GRAM 2 GM/50 ML BAG IV ONE (17:59)
[2018-01-04] MEDS ORDERED: LORazepam 0.5 MG TABLET PO PRN (17:59)
[2018-01-04] MEDS ORDERED: INSULIN GLARGINE 300 UNIT/3 ML PEN SUBQ SCH (21:00)
[2018-01-05] MEDS: INSULIN REGULAR HUMAN 100 UNIT/1 ML 10 ML MDV SUBQ SCH ×2 (01:03→06:40)
[2018-01-05] MEDS: INSULIN ASPART 300 UNIT/3 ML PEN SUBQ SCH ×4 (01:05→17:43)
[2018-01-05] MEDS: SODIUM CHLORIDE FLUSH 0.9% 10 ML SYRINGE IVP SCH ×3 (01:09→17:43)
[2018-01-05] MEDS ORDERED: HYDROmorphone PCA 20MG/100ML IV PRN (02:17)
[2018-01-05] MEDS: ONDANSETRON 4 MG/2 ML VIAL IVP PRN ×2 (04:00→15:13)
[2018-01-05] MEDS: SODIUM CHLORIDE FLUSH 0.9% 10 ML SYRINGE IVP PRN ×3 (04:01→20:18)
[2018-01-05] MEDS: NS W/20 MEQ KCL 1,000 ML IV SCH (04:08)
[2018-01-05 05:50] LABS: BASOPHILS % (AUTO) 0.2 %; HGB - HEMOGLOBIN 13.5 g/dL (12.0-16.0); LYMPHOCYTES # (AUTO) 0.8 10^3/uL (1.5-3.5); LYMPHOCYTES % (AUTO) 4.7 %; MEAN CORPUSCULAR HEMOGLOBIN 27.5 pg (27.0-31.0); MEAN CORPUSCULAR HGB CONC 33.3 g/dL (32.0-36.0); MEAN CORPUSCULAR VOLUME 82.6 fL (81.0-99.0); MEAN PLATELET VOLUME 7.2 fL (7.9-10.8); MONOCYTES # (AUTO) 0.6 10^3/uL (0.0-1.0); MONOCYTES % (AUTO) 3.7 %; NEUTROPHILS # (AUTO) 16.1 10^3/uL (1.5-6.6); NEUTROPHILS % (AUTO) 91.4 %; PLT - PLATELET COUNT 189 10^3/uL (130-450); RED CELL DISTRIBUTION WIDTH 15.6 % (12.0-15.0); WHITE BLOOD COUNT 17.6 x10^3/uL (4.8-10.8)
[2018-01-05 06:43] LABS: ALBUMIN 3.2 g/dL (3.2-5.5); ALBUMIN/GLOBULIN RATIO 1.1 (1.0-2.2); ALKALINE PHOSPHATASE 63 IU/L (42-121); ALT ALANINE AMINOTRANSFERASE 36 IU/L (10-60); AST ASPARTATE AMINOTRANSFERASE 39 IU/L (10-42); BILIRUBIN,TOTAL 1.4 mg/dL (0.2-1.0); BUN - BLOOD UREA NITROGEN 29 mg/dL (6-20); CARBON DIOXIDE - CO2 21 mmol/L (21-32); CHLORIDE 102 mmol/L (101-111); CREATININE 0.8 mg/dL (0.4-1.0); GFR - MDRD 79 (>89); GLUCOSE 326 mg/dL (70-100); LIPASE 1452 U/L (22-51); PHOSPHORUS 2.3 mg/dL (2.5-4.6); SODIUM 131 mmol/L (135-145); TOTAL PROTEIN 6.1 g/dL (6.7-8.2)
[2018-01-05 06:48] LABS: AMYLASE 1190 U/L (28-100); CALCIUM 6.5 mg/dL (8.5-10.3)
[2018-01-05 06:49] LABS: VBG PH 7.219 (7.31-7.41)
[2018-01-05] MEDS: SODIUM CHLORIDE 0.9% 1,000 ML IV SCH ×2 (07:55→19:22)
[2018-01-05] MEDS ORDERED: CALCIUM GLUCONATE 2,000 MG in SODIUM CHLORIDE 0.9% 100ML 100 ML IV ONE (08:00)
[2018-01-05] MEDS: ENOXAPARIN 40 MG/0.4 ML SYRINGE SUBQ SCH (08:40)
[2018-01-05] MEDS: FAMOTIDINE 20 MG/50 ML 50 ML IV SCH (08:40)
[2018-01-05] MEDS: POLYETHYLENE GLYCOL 3350 17 GM PACKET PO SCH (08:40)
[2018-01-05] MEDS ORDERED: POTASSIUM PHOSPHATE 15 MMOL in SODIUM CHLORIDE 0.9% 250 ML IV ONE (09:00)
[2018-01-05] MEDS ORDERED: IOPAMIDOL-300 100 ML VIAL ONE (10:45)
[2018-01-05] MEDS ORDERED: IOPAMIDOL-300 100 ML VIAL IVP ONE (11:12)
--- NOTE | 2018-01-05 11:47 | CT Report ---
Reason: elevated enzymes, WBCs, pain Procedure Date: 01/05/2018 Accession Number: [id number] / [id number] Procedure: CT - Abdomen/Pelvis W/ CPT Code: FULL RESULT: EXAM: CT ABDOMEN AND PELVIS EXAM DATE: 01/05/2018 11:21 AM. CLINICAL HISTORY: Elevated liver enzymes, WBCs, pain. COMPARISONS: ABDOMEN/PELVIS W/ 01/03/2018. TECHNIQUE: Routine helical CT imaging was performed through the abdomen and pelvis. IV contrast: 100 cc Isovue 300. Enteric contrast: No. Reconstructions: Coronal and sagittal. In accordance with CT protocol optimization, one or more of the following dose reduction techniques were utilized for this exam: automated exposure control, adjustment of mA and/or KV based on patient size, or use of iterative reconstructive technique. FINDINGS: Lung Bases: New small bilateral pleural effusions. Segmental atelectasis at the lung bases bilaterally. Liver: Normal. No masses. Gallbladder/Bile Ducts: Cholelithiasis without convincing secondary signs of inflammation. No ductal enlargement. Spleen: Stable mild nonspecific splenomegaly. No focal splenic lesion. Pancreas: Similar extensive peripancreatic edema and somewhat increased fluid tracking in the anterior pararenal space. There is increased conspicuity of focal areas of hypoperfusion of the pancreatic neck and body/tail junction which may reflect necrosis. No definite organized fluid collection. Adrenal Glands: Normal. Kidneys: Normal. No masses or hydronephrosis. Peritoneal Cavity/Bowel: Slightly increased small volume ascites. Stomach, small bowel, and colon are unremarkable. The appendix is well visualized and normal. There are a few mildly prominent subcentimeter upper abdominal lymph nodes which may be reactive. Pelvic Organs: Contrast from a prior exam is seen in the urinary bladder. Otherwise unremarkable. Vasculature: There is suggestion of minimal nonocclusive thrombus in the splenic vein (3/32, 5/30), new from prior. Portal vein is patent. No aneurysms or other significant abnormality. Bones: No significant abnormality. Other: None. IMPRESSION: 1. Acute pancreatitis with extensive peripancreatic edema and increased fluid tracking through the anterior pararenal space. No organized fluid collection. 2. Increased conspicuity of areas of pancreatic hypoenhancement, may reflect necrosis. 3. Suggestion of minimal nonocclusive thrombus in the splenic vein. 4. Slightly increased small volume ascites. 5. Similar nonspecific mild splenomegaly. 6. New small bilateral pleural effusions, subsegmental basal atelectasis. 7. Other findings as noted above. RADIA
[2018-01-05] MEDS ORDERED: INSU100I18 SUBQ SCH (17:00)
--- NOTE | 2018-01-05 19:17 | Discharge Plan ---
Discharge Plan Disposition: 02 Transfer Acute Care Hosp Condition: Stable Activity Restrictions: No Restrictions Shower Restrictions: No Additional Instructions or Follow Up instructions: Transferring to a higher level of care for a greater than 96 hour stay. No Smoking: If you smoke, Please STOP! Call for help.
--- NOTE | 2018-01-05 19:28 | DISCHARGE SUMMARY ---
Discharge Summary Admit Date: 01/04/18 Discharge Date: 01/05/18 Discharging Provider: MARCEL Fernandez Primary Care Provider: Derick Paul Code Status: Attempt Resuscitation Condition at Discharge: Stable Discharge Disposition: 02 Transfer Acute Care Hosp Discharge Facility Name: [facility]Elyssa Cheek [place] (hospitalist) - DIAGNOSES Admission Diagnoses: Acute pancreatitis without necrosis or infection, unsp (K85.90) Calculus of gallbladder without cholecystitis without obstruction (K80.20) Type 2 diabetes mellitus without complications (E11.9) Hypokalemia (E87.6) Hypo-osmolality and hyponatremia (E87.1) Fatty (change of) liver, not elsewhere classified (K76.0) Obesity, unspecified (E66.9) Discharge Diagnoses with Status of Each Condition: Pancreatitis, acute (K85.90) new on this admit, needs further care. Cholelithiasis (K80.20) new on this admit, needs further care. Abdominal pain (R10.9) new on this admit, needs further care. Type 2 diabetes mellitus (E11.9) chronic, still running hyperglycemic. Hypokalemia (E87.6) ongoing, stable. Hyponatremia (E87.1) resolved. Fatty liver (K76.0) new on this admit, needs further care. Obesity (BMI 30.0-34.9) (E66.9) chronic, stable. Angioedema (T78.3XXA) resolved. Chronic headaches (R51) chronic, stable. - HPI History of Present Illness: HPI per Dr. Begum: Patient is a 42-year-old female with a past medical history significant for type 2 diabetes and obesity who presented to the emergency department with a chief complaint of abdominal pain. The patient states that her abdominal pain in [place] started about 2 weeks ago. She states that that time the abdominal pain was occurring off and on and was mild to moderate in intensity. She states that it was located in the epigastric to left upper quadrant area. She states over the last 2 weeks the abdominal pain has progressed gradually. Over the last week she is began to develop nausea associated with the abdominal pain. She states that over the last 3 days she has been having episodes of emesis. She states that the pain has also become much more severe. She states at its worst it is a 10 out of 10 pain. She states the pain has now become diffuse over the entire left side of her abdomen radiating to her back. She states that yesterday she did go see her primary care physician who advised that she go to the emergency department if the pain is truly that severe. The patient decided not to come to the emergency department. She states that today she continued to have nausea vomiting and abdominal pain which was up to a 10 out of 10. She states the abdominal pain was radiating to the back and she had decreased appet ite. Prior to coming to the emergency department the patient did have dinner where she states she ate some briskits but was only able to eat very little due to the severe pain when she ate. She states that over the last 2 weeks she has noted that the pain is worse when she does eat. She also states that she has been feeling dizzy the last couple of days. She admits to chills but no fever. She states the only thing that makes the pain better is resting. She states that she has never had pain like this before. The patient does state that she started taking lisinopril just 2 days ago. She denies any polyuria or polydipsia. She denies any urinary urgency, frequency or dysuria. She denies any diarrhea. She denies any cough or chest pain. The patient denies any constipation or abdominal distention. The patient denies any alcohol use. Patient denies any headaches, blurred vision, runny nose, sore throat, nasal congestion, difficulty swallowing, shortness of air, orthopnea, PND, increased lower extremity swelling, palpitations, joint pain, joint swelling, muscle aches, neck stiffness, hair loss, skin rash, recent unintentional weight loss, night sweats or any focal neurologic deficits. On presentation to the emergency department the patient was afebrile, tachycardic with heart rate of 92 and hypotensive with a blood pressure 88/65. The patient appeared to be in significant distress as she was writhing in pain. The patient was also tachypneic with a respiratory rate of 23 but she was saturating well on room air. The patient underwent routine lab work which revealed a mild leukocytosis of 13.8, hyponatremia with a sodium of 133, hypokalemia with a potassium of 3.2, hyperglycemia with a glucose of 267, elevated bilirubin of 2.3, an elevated AST of 127 and an elevated lipase of greater than 4800. The patient had severe tenderness on abdominal examination and was complaining of severe pain. The patient underwent a CT of her abdomen and pelvis which revealed pancreatitis with large amount of peripancreatic edema extending into the root of the mesenteric and bilateral anterior pararenal spaces. She also had some areas of pancreas appearing slightly hypoperfused concerning for early necrosis. She is also found to have fatty liver and splenomegaly with mild ascites. The patient's gallbladder had calcified stones without definite cholecystitis. The patient underwent an abdominal ultrasound which revealed cholelithiasis without evidence of biliary obstruction. The patient was admitted to the medical oliva with pancreatitis likely secondary to gallstones. Surgery was notified in the emergency department and asked that the hospitalist team admit the patient and that they would see the patient in consultation. - CONSULTS | PROCEDURES Consultations: General surgery: Dr. Combs - HOSPITAL COURSE Hospital Course: (1) Pancreatitis Upon admit, imaging showed that the patient had a large amount of peripancreatic edema extending into the root of the mesentery and bilateral pararenal spaces. Early necrosis cannot be excluded. On day #2 (today) repeat imaging was recommended by our general surgeon, which showed worsening of this acute illness with increased fluid tracking through the anterior pararenal space, also increased conspicuity of hypoenhancement, may reflect necrosis. Upon exam the patient complaints of pain in her LUQ and LLQ that goes into her mid-back, and describes it as burning, stabbing, and constant despite using her HAM CLERK. She had an elevated lipase ~4800, that improved to 1342 and then worsened at 1452. Amylase was elevated at 829 upon admit, and worsened to 1190. She had a mildly elevated bili of 1.4, a CRP of 13.8, a low calcium of 6.5, a normal triglyceride level of 83. She remained NPO, and was started on a HAM CLERK diluadid pump for more appropriate pain control. Possible causes include; the recent addition of lisinopril, or uncontrolled diabetes. The patient denies alcohol use, recent trauma or illness, smoking, illegal drug use, or a family history. The patient was continued with orders; NPO, IVFs, HAM CLERK, and anti-emetics. (2) Cholelithiasis Upon presentation to the ED, an abdominal CT showed calcified stones in the gallbladder without definite cholecystitits. An abdominal ultrasound confirmed this finding with cholelithiasis as the impression upon admission. The patient may need to undergo a lap sahil, as per [facility], General surgery after pancreatitis is resolved. (3) Abdominal pain The patient describes her pain as stabbing, hot, constant and it is very tender with light palpation. This started about 24 hours prior to presenting to the ED, and this can be contributed to her acute illness. She denies bleeding, or problems urinating. She states that the pain starts under her left breast all the way down to her groin, to her left flank, and extends to her left mid-back. This is being treated with a dilaudid HAM CLERK. Plan: Continue with pain control, anti-emetics, and frequent nursing cares. (4) Angioedema One the patient's presenting symptoms was angioedema and was recently prescribed lisinopril. She denies any problems with airway clearance and today, this is resolved. Lisinopril was added to her allergy list. (5) Fatty liver Upon imaging the patient is noted to have a fatty liver, and this is apparent upon exam as she has an enlarged abdominal girth and has been diabetic for at least the past 5 years. The patient denies alcoholism or a history of hepa titis. (6) Hypokalemia The patient's potassium upon admit was only mildly low at 3.2, and she remains on IVF with 20 Meq. This is likely due to her recent vomiting and lack of PO intake. Prior to transfer her potassium was 5.2, so her IVFs were changed to just normal saline. (7) Obesity (BMI 30.0-34.9) The patient has an elevated BMI of 33.2 today and this has been her baseline since being diagnosed with diabetes. The patient should be encouraged to enroll in a weight management program after this acute illness. (8) Diabetes mellitus type 2, uncontrolled, with complications The patient's hemoglobin A1C was 8.5% on 01/04/18 showing poor control. She is on metformin at home, that is now on hold. She remains on nightly Lantus at 10 units, and NPO SSI with routine blood sugar checks. Q6H scheduled Aspart at 5 units was added. Early AM sugar today was elevated at 356. (9) Chronic Headaches The patient admits to chronic headaches while she lived in [place], and she related it to the poor air quality. Since arriving on [place], she states that her headaches have been less frequent. She is not prescribed any medications for this, and on exam, she notes this as her "normal". The patient was in stable condition and was given orders to control pain during her ambulance ride. Her , Xavi was present today, during her exam, and while transport arrangements were being made. Communication with [facility], Dr. Elyssa Cheek Hospitalist was made by myself, and I appreciate the acceptance of this complicated case as Martínez does not have the capabilities needed to best serve this patient. - ALLERGIES Allergies/Adverse Reactions: Allergies Allergy/AdvReac Type Severity Reaction Status Date / Time lisinopril Allergy Edema Verified 01/05/18 19:17 - MEDICATIONS Home Medications: Ambulatory Orders Medication Instructions Recorded Confirmed metFORMIN [Glucophage] 500 mg PO BIDWM 01/03/18 01/04/18 - PHYSICAL EXAM AT DISCHARGE General Appearance: positive: Alert, Moderate distress, Anxious, Other (tearful) Eyes Bilateral: positive: Normal inspection, PERRL ENT: positive: ENT inspection nml, Pharynx nml, Dry mucous membranes Neck: positive: Thyroid nml, No JVD, Trachea midline Respiratory: positive: Chest non-tender, No respiratory distress, Other Cardiovascular: positive: Regular rate & rhythm, No gallop, Tachycardia Peripheral Pulses: positive: 2+ Abdomen: positive: Tenderness, Guarding, Rebound, Hepatomegaly, Abnml bowel sounds, Other (very tender in LLQ/LUQ, left flank, and left mid-back.) Back: positive: Nml inspection Skin: positive: No rash, Warm, Dry, Diaphoresis Extremities: positive: Non-tender, Full ROM, Nml appearance Neurologic/Psychiatric: positive: Oriented x3, CN's nml (2-12), Motor nml, Sensation nml, Depressed mood/affect Reflexes: Bicep (R): 4+, Bicep (L): 4+ - LABS Result Diagrams: 01/05/18 05:28 01/05/18 05:28 - DIAGNOSTIC IMAGING Diagnostic Imaging Results: Prelim report reviewed, Final report reviewed Diagnostic Imaging Results Comments: Imaging was "pushed" via our radiology department PACS for you to review. Abdominal imaging. - FOLLOW UP Follow Up: As per [facility], recommend to see PCP within one week after hospital discharge. - TIME SPENT Time Spent in Discharge (Minutes): 50
[2018-01-05 19:59] VITALS: BP 98/63
--- NOTE | 2018-01-05 20:02 | PROVIDER PROGRESS NOTE ---
Subjective - General Admit Date: 01/04/18 Procedure Performed: None yet. - Review of Systems General: positive: Other (Abdominal pain only mildly improved and mostly left sided. Patient is very thirsty and this goes along with the fact that recussitation has still not caught up to her requirements.) HEENT: positive: No symptoms Pulmonary: positive: No symptoms Cardiovascular: positive: No symptoms Gastrointestinal: positive: Nausea, Abdominal pain (Severe but better than yesterday.) Genitourinary: positive: No symptoms Musculoskeletal: positive: No symptoms Psychiatric: positive: No symptoms All Other Systems: positive: Reviewed and negative Objective - Patient Data Reviewed Vital Signs: Yes Vital Signs: Vital Signs x48h Temp Pulse Resp BP Pulse Ox 01/05/18 19:58 37.2 C 112 H 16 98/63 96 01/05/18 18:00 18 01/05/18 16:30 37.0 C 111 H 14 108/66 92 Weight: Weight 01/03/18 01/04/18 01/05/18 23:59 23:59 23:59 Weight (kg) 86.183 kg 90.5 kg Intake & Output: Intake and Output Totals x24h 01/03/18 01/04/18 01/05/18 23:59 23:59 23:59 Intake Total 1000 4283 2870.833 Output Total 250 Balance 1000 4033 2870.833 - Lab Results Lab Results: 01/05/18 05:28 01/05/18 05:28 Other Lab Results: Lab Results x24hrs 01/05/18 01/05/18 01/05/18 Range/Units 17:41 11:22 06:52 WBC (4.8-10.8) x10^3/uL RBC (4.20-5.40) 10^6/uL Hgb (12.0-16.0) g/dL Hct (37.0-47.0) % MCV (81.0-99.0) fL MCH (27.0-31.0) pg MCHC (32.0-36.0) g/dL RDW (12.0-15.0) % Plt Count (130-450) 10^3/uL MPV (7.9-10.8) fL Neut # (Auto) (1.5-6.6) 10^3/uL Lymph # (Auto) (1.5-3.5) 10^3/uL [place] # (Auto) (0.0-1.0) 10^3/uL Eos # (Auto) (0.0-0.7) 10^3/uL Baso # (Auto) (0.0-0.1) 10^3/uL Absolute Nucleated RBC x10^3/uL Nucleated RBC % /100WBC VBG pH (7.31-7.41) Ionized Calcium (1.15-1.33) mmol/L Sodium (135-145) mmol/L Potassium (3.5-5.0) mmol/L Chloride (101-111) mmol/L Carbon Dioxide (21-32) mmol/L Anion Gap (6-13) BUN (6-20) mg/dL Creatinine (0.4-1.0) mg/dL Estimated GFR (MDRD) (>89) Glucose (70-100) mg/dL POC Whole Bld Glucose 244 H 265 H 310 H (70 - 100) mg/dL Calcium (8.5-10.3) mg/dL Phosphorus (2.5-4.6) mg/dL Magnesium (1.7-2.8) mg/dL Total Bilirubin (0.2-1.0) mg/dL AST (10-42) IU/L ALT (10-60) IU/L Alkaline Phosphatase (42-121) IU/L Lactate Dehydrogenase (91-225) IU/L C-Reactive Protein (0-1.0) mg/dL Total Protein (6.7-8.2) g/dL Albumin (3.2-5.5) g/dL Globulin (2.1-4.2) g/dL Albumin/Globulin Ratio (1.0-2.2) Amylase (28-100) U/L Lipase (22-51) U/L 01/05/18 01/05/18 01/05/18 Range/Units 05:28 05:28 05:28 WBC (4.8-10.8) x10^3/uL RBC (4.20-5.40) 10^6/uL Hgb (12.0-16.0) g/dL Hct (37.0-47.0) % MCV (81.0-99.0) fL MCH (27.0-31.0) pg MCHC (32.0-36.0) g/dL RDW (12.0-15.0) % Plt Count (130-450) 10^3/uL MPV (7.9-10.8) fL Neut # (Auto) (1.5-6.6) 10^3/uL Lymph # (Auto) (1.5-3.5) 10^3/uL [place] # (Auto) (0.0-1.0) 10^3/uL Eos # (Auto) (0.0-0.7) 10^3/uL Baso # (Auto) (0.0-0.1) 10^3/uL Absolute Nucleated RBC x10^3/uL Nucleated RBC % /100WBC VBG pH 7.219 L (7.31-7.41) Ionized Calcium 0.86 L (1.15-1.33) mmol/L Sodium (135-145) mmol/L Potassium (3.5-5.0) mmol/L Chloride (101-111) mmol/L Carbon Dioxide (21-32) mmol/L Anion Gap (6-13) BUN (6-20) mg/dL Creatinine (0.4-1.0) mg/dL Estimated GFR (MDRD) (>89) Glucose (70-100) mg/dL POC Whole Bld Glucose 316 H (70 - 100) mg/dL Calcium (8.5-10.3) mg/dL Phosphorus (2.5-4.6) mg/dL Magnesium (1.7-2.8) mg/dL Total Bilirubin (0.2-1.0) mg/dL AST (10-42) IU/L ALT (10-60) IU/L Alkaline Phosphatase (42-121) IU/L Lactate Dehydrogenase (91-225) IU/L C-Reactive Protein 13.8 H (0-1.0) mg/dL Total Protein (6.7-8.2) g/dL Albumin (3.2-5.5) g/dL Globulin (2.1-4.2) g/dL Albumin/Globulin Ratio (1.0-2.2) Amylase (28-100) U/L Lipase (22-51) U/L 01/05/18 01/05/18 01/05/18 Range/Units 05:28 05:28 05:28 WBC 17.6 H (4.8-10.8) x10^3/uL RBC 4.90 (4.20-5.40) 10^6/uL Hgb 13.5 (12.0-16.0) g/dL Hct 40.5 (37.0-47.0) % MCV 82.6 (81.0-99.0) fL MCH 27.5 (27.0-31.0) pg MCHC 33.3 (32.0-36.0) g/dL RDW 15.6 H (12.0-15.0) % Plt Count 189 (130-450) 10^3/uL MPV 7.2 L (7.9-10.8) fL Neut # (Auto) 16.1 H (1.5-6.6) 10^3/uL Lymph # (Auto) 0.8 L (1.5-3.5) 10^3/uL [place] # (Auto) 0.6 (0.0-1.0) 10^3/uL Eos # (Auto) 0.0 (0.0-0.7) 10^3/uL Baso # (Auto) 0.0 (0.0-0.1) 10^3/uL Absolute Nucleated RBC 0.01 x10^3/uL Nucleated RBC % 0.0 /100WBC VBG pH (7.31-7.41) Ionized Calcium YES (1.15-1.33) mmol/L Sodium 131 L (135-145) mmol/L Potassium 5.3 H (3.5-5.0) mmol/L Chloride 102 (101-111) mmol/L Carbon Dioxide 21 (21-32) mmol/L Anion Gap 8.0 (6-13) BUN 29 H (6-20) mg/dL Creatinine 0.8 (0.4-1.0) mg/dL Estimated GFR (MDRD) 79 L (>89) Glucose 326 H (70-100) mg/dL POC Whole Bld Glucose (70 - 100) mg/dL Calcium 6.5 L* (8.5-10.3) mg/dL Phosphorus 2.3 L (2.5-4.6) mg/dL Magnesium 2.0 (1.7-2.8) mg/dL Total Bilirubin 1.4 H (0.2-1.0) mg/dL AST 39 (10-42) IU/L ALT 36 (10-60) IU/L Alkaline Phosphatase 63 (42-121) IU/L Lactate Dehydrogenase 323 H (91-225) IU/L C-Reactive Protein (0-1.0) mg/dL Total Protein 6.1 L (6.7-8.2) g/dL Albumin 3.2 (3.2-5.5) g/dL Globulin 2.9 (2.1-4.2) g/dL Albumin/Globulin Ratio 1.1 (1.0-2.2) Amylase 1190 H* (28-100) U/L Lipase 1452 H (22-51) U/L 01/05/18 Range/Units 00:55 WBC (4.8-10.8) x10^3/uL RBC (4.20-5.40) 10^6/uL Hgb (12.0-16.0) g/dL Hct (37.0-47.0) % MCV (81.0-99.0) fL MCH (27.0-31.0) pg MCHC (32.0-36.0) g/dL RDW (12.0-15.0) % Plt Count (130-450) 10^3/uL MPV (7.9-10.8) fL Neut # (Auto) (1.5-6.6) 10^3/uL Lymph # (Auto) (1.5-3.5) 10^3/uL [place] # (Auto) (0.0-1.0) 10^3/uL Eos # (Auto) (0.0-0.7) 10^3/uL Baso # (Auto) (0.0-0.1) 10^3/uL Absolute Nucleated RBC x10^3/uL Nucleated RBC % /100WBC VBG pH (7.31-7.41) Ionized Calcium (1.15-1.33) mmol/L Sodium (135-145) mmol/L Potassium (3.5-5.0) mmol/L Chloride (101-111) mmol/L Carbon Dioxide (21-32) mmol/L Anion Gap (6-13) BUN (6-20) mg/dL Creatinine (0.4-1.0) mg/dL Estimated GFR (MDRD) (>89) Glucose (70-100) mg/dL POC Whole Bld Glucose 316 H (70 - 100) mg/dL Calcium (8.5-10.3) mg/dL Phosphorus (2.5-4.6) mg/dL Magnesium (1.7-2.8) mg/dL Total Bilirubin (0.2-1.0) mg/dL AST (10-42) IU/L ALT (10-60) IU/L Alkaline Phosphatase (42-121) IU/L Lactate Dehydrogenase (91-225) IU/L C-Reactive Protein (0-1.0) mg/dL Total Protein (6.7-8.2) g/dL Albumin (3.2-5.5) g/dL Globulin (2.1-4.2) g/dL Albumin/Globulin Ratio (1.0-2.2) Amylase (28-100) U/L Lipase (22-51) U/L - Current Medications Current Medications: Current Medications Generic Name Dose Route Start Last Admin Trade Name Freq PRN Reason Stop Dose Admin Enoxaparin Sodium 40 mg 01/04/18 09:00 01/05/18 08:40 Lovenox SUBQ 40 mg DAILY ZARINA Administration Hydromorphone HCl 0 mg 01/05/18 02:17 01/05/18 02:17 Dilaudid It Technician 20mg/100ml IV 0.2 mg PRN PRN Administration PAIN Protocol Famotidine 50 mls @ 100 mls/hr 01/04/18 09:00 01/05/18 09:54 Pepcid 20 Mg/50 Ml IV Infused BID ZARINA Infusion Sodium Chloride 1,000 mls @ 125 mls/hr 01/05/18 07:00 01/05/18 19:22 Normal Saline 0.9% IV 125 mls/hr .Q8H ZARINA Administration Insulin Aspart 5 unit 01/04/18 12:00 01/05/18 17:43 Novolog SUBQ 5 unit Q6H ZARINA Administration Insulin Aspart 1 - 9 unit 01/05/18 17:00 01/05/18 15:15 Novolog SUBQ 5 unit 0800,1200,1700,2100 ZARINA Administration Protocol Ondansetron HCl 4 mg 01/04/18 18:00 01/05/18 15:13 Zofran Inj IVP 4 mg Q4HR PRN Administration Nausea / Vomiting Oxycodone HCl 10 mg 01/04/18 00:23 01/04/18 10:06 Roxicodone PO 10 mg Q4HR PRN Administration Pain 8 to 10 Polyethylene Glycol 17 gm 01/04/18 09:00 01/05/18 08:40 Miralax PO 17 gm DAILY ZARINA Administration Sodium Chloride 10 ml 01/04/18 00:23 01/05/18 15:13 Normal Saline Flush 0.9% IVP 10 ml PRN PRN Administration NEEDED PER PROVIDER ORDERS Sodium Chloride 10 ml 01/04/18 01:00 01/05/18 17:43 Normal Saline Flush 0.9% IVP 10 ml 0100,0900,1700 ZARINA Administration - Physical Exam General Appearance: positive: Mild distress Eyes Bilateral: positive: No lid inflammation, Conjunctivae nml, No scleral icterus ENT: positive: Dry mucous membranes Neck: positive: Trachea midline Respiratory: positive: Chest non-tender, No respiratory distress, Breath sounds nml Cardiovascular: positive: Regular rate & rhythm Abdomen: positive: Tenderness (LEFT sided with the greatest pain in the LLQ) Skin: positive: Color nml Extremities: positive: Non-tender, Nml appearance Neurologic/Psychiatric: positive: Oriented x3 Impression/Plan - Problem List Problem List: Gallstone pancreatitis with evidence of worse prognostic factors - increasing WBC in the face of increased fluid requirements. She is fulfilling many of Dmitriy's criteria. This is VERY worrisome for necrotizing panceatitis. I have ordered a C-reactive protein which has some prognostic factors for pancreatic necrosis. Repeat CT to be done. If there is pancreatic necrosis then I strongly recommend transfer to a higher level of care. If not then additional fluid resuscitation with an eye to keeping her urine output light in color and 25-30 mL per hour. Appropriate pain management. Will follow.
[2018-01-05] MEDS ORDERED: INSULIN GLARGINE 300 UNIT/3 ML PEN SUBQ SCH (21:00)
== END 2018-01-05 20:30 | disposition short-term general hospital (02) | DRG 439 ==
LOC: ED 19:36 → MS3 01-04 00:23
PROVIDERS: ADMIT Internal Medicine; ATTEND Nurse Practitioner
DX: K85.11 Biliary acute pancreatitis with uninfected necrosis (principal); E87.1 Hypo-osmolality and hyponatremia; K80.20 Calculus of gallbladder without cholecystitis without obstruction; E11.65 Type 2 diabetes mellitus with hyperglycemia; E87.6 Hypokalemia; E86.0 Dehydration; K76.0 Fatty (change of) liver, not elsewhere classified; E66.9 Obesity, unspecified; Z68.33 Body mass index [BMI] 33.0-33.9, adult; T78.3XXA Angioneurotic edema, initial encounter; T46.4X5A Adverse effect of angiotensin-converting-enzyme inhibitors, initial encounter; Z79.84 Long term (current) use of oral hypoglycemic drugs
CPT/HCPCS: 36415; 74177; 76705; 80053; 80061; 82150; 82330; 83036; 83605; 83615; 83690; 83721; 83735; 84100; 85025; 86140; 96361; 96365; 96375; 96376; 99283; 99285

== ENCOUNTER 2018-01-05 20:30 | Outpatient (CLI) | payer OTHER | END 2018-01-05 20:31 | disposition short-term general hospital (02) | LOC: EMS 20:30 | PROVIDERS: ATTEND Surgery | DX: K85.91 Acute pancreatitis with uninfected necrosis, unspecified (principal) | CPT/HCPCS: A0425; A0426 ==

== ENCOUNTER 2018-01-17 17:47 | Emergency (ER) | payer OTHER ==
[2018-01-17 19:09] LABS: GLUCOSE, URINE (UA) >=1000 mg/dL (NEGATIVE); KETONES,URINE (UA) >=80 mg/dL (NEGATIVE); LEUKOCYTE ESTERASE, URINE NEGATIVE (NEGATIVE); NITRITE,URINE NEGATIVE (NEGATIVE); OCCULT BLOOD,URINE NEGATIVE (NEGATIVE); PH,URINE 6.5 PH (5.0-7.5); PROTEIN,URINE TRACE mg/dL (NEGATIVE); UROBILINOGEN,URINE 0.2 (NORMAL) E.U./dL (NORMAL)
[2018-01-17 19:15] LABS: BILIRUBIN,URINE NEGATIVE (NEGATIVE); CLARITY,URINE CLEAR (CLEAR); HCG UR QUAL NEGATIVE; ICTOTEST,URINE NEGATIVE
[2018-01-17] MEDS ORDERED: SODIUM CHLORIDE 0.9% 1,000 ML IV ONE ×2 (20:03→22:01)
--- NOTE | 2018-01-17 20:45 | ED Physician Documentation ---
History of Present Illness - Stated complaint Stated Complaint: WEAKNESS - Chief complaint Chief Complaint: General - History obtained from History obtained from: Patient, Family - History of Present Illness Timing: Today Pain level max: 0 Pain level now: 0 Improved by: nothing Worsened by: nothing - Additonal information Additional information: Is a 42-year-old female who was recently hospitalized for pancreatitis and then had a cholecystectomy. They thought the cholecystitis was secondary to her diabetic medication, therefore they have changed her to insulin. She was started on Lantus 8 units subcu once a day. Her blood sugars have been 3-400 today. She was not given any breakthrough insulin or sliding scale. Review of Systems Ten Systems: 10 systems reviewed and negative Constitutional: denies: Fever, Chills Ears: denies: Ear pain Nose: denies: Rhinorrhea / runny nose, Congestion Throat: denies: Sore throat Cardiac: denies: Chest pain / pressure Respiratory: denies: Cough GI: reports: Nausea. 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 - Present Medications Home Medications: Ambulatory Orders Medication Instructions Recorded Confirmed Insulin Glargine [Lantus Solostar] 8 units 01/17/18 - Allergies Allergies/Adverse Reactions: Allergies Allergy/AdvReac Type Severity Reaction Status Date / Time lisinopril Allergy Edema Verified 01/17/18 17:57 - Social History Does the pt smoke?: No Smoking Status: Never smoker Does the pt drink ETOH?: No Does the pt have substance abuse?: No - Immunizations Immunizations are current?: Yes - POLST Patient has POLST: No POLST Status: Full Code PD ED PE NORMAL - Vitals Vital signs reviewed: Yes - General General: Alert and oriented X 3, No acute distress - HEENT HEENT: Moist mucous membranes - Neck Neck: Supple, no meningeal sign - Cardiac Cardiac: RRR, Strong equal pulses - Respiratory Respiratory: No respiratory distress, Clear bilaterally - Abdomen Abdomen: Soft, Non tender, Non distended, Other (incisions are CDI) - Derm Derm: Warm and dry - Neuro Neuro: Alert and oriented X 3 - Psych Psych: Normal mood, Normal affect Results - Vitals Vitals: Vital Signs - 24 hr 01/17/18 01/17/18 01/17/18 17:50 20:39 21:58 Temperature 36.4 C L 36.9 C Heart Rate 116 H 102 H 101 H Respiratory 18 20 20 Rate Blood Pressure 119/73 127/79 127/80 O2 Saturation 98 95 97 Oxygen O2 Source Room air - Labs Labs: Laboratory Tests 01/17/18 01/17/18 01/17/18 17:53 18:07 20:33 WBC 9.1 RBC 4.18 L Hgb 11.7 L Hct 34.3 L MCV 82.1 MCH 28.1 MCHC 34.2 RDW 15.7 H Plt Count 292 MPV 7.0 L Neut # (Auto) 7.3 H Lymph # (Auto) 1.2 L [place] # (Auto) 0.4 Eos # (Auto) 0.1 Baso # (Auto) 0.0 Absolute Nucleated RBC 0.01 Nucleated RBC % 0.1 VBG pH VBG pCO2 VBG pO2 VBG HCO3 VBG Total CO2 VBG O2 Saturation VBG Base Excess Sodium Potassium Chloride Carbon Dioxide Anion Gap BUN Creatinine Estimated GFR (MDRD) Glucose POC Whole Bld Glucose 390 H Calcium Total Bilirubin AST ALT Alkaline Phosphatase Total Protein Albumin Globulin Albumin/Globulin Ratio Lipase Urine Color YELLOW Urine Clarity CLEAR Urine pH 6.5 Ur Specific [place] 1.015 Urine Protein TRACE Urine Glucose (UA) >=1000 H Urine Ketones >=80 H Urine Occult Blood NEGATIVE Urine Nitrite NEGATIVE Urine Bilirubin NEGATIVE Urine Urobilinogen 0.2 (NORMAL) Ur Leukocyte Esterase NEGATIVE Ur Microscopic Review NOT INDICATED Urine Culture Comments NOT INDICATED Urine HCG, Qual NEGATIVE Serum Ketones 01/17/18 01/17/18 01/17/18 20:33 20:33 21:58 WBC RBC Hgb Hct MCV MCH MCHC RDW Plt Count MPV Neut # (Auto) Lymph # (Auto) [place] # (Auto) Eos # (Auto) Baso # (Auto) Absolute Nucleated RBC Nucleated RBC % VBG pH 7.408 VBG pCO2 38.8 L VBG pO2 30.0 VBG HCO3 24.5 VBG Total CO2 26.0 VBG O2 Saturation 58.0 L VBG Base Excess 0.0 Sodium 131 L Potassium 3.6 Chloride 95 L Carbon Dioxide 24 Anion Gap 12.0 BUN 7 Creatinine 0.6 Estimated GFR (MDRD) 111 Glucose 352 H POC Whole Bld Glucose 306 H Calcium 8.8 Total Bilirubin 1.4 H AST 18 ALT 18 Alkaline Phosphatase 123 H Total Protein 7.6 Albumin 3.2 Globulin 4.3 H Albumin/Globulin Ratio 0.7 L Lipase 52 H Urine Color Urine Clarity Urine pH Ur Specific [place] Urine Protein Urine Glucose (UA) Urine Ketones Urine Occult Blood Urine Nitrite Urine Bilirubin Urine Urobilinogen Ur Leukocyte Esterase Ur Microscopic Review Urine Culture Comments Urine HCG, Qual Serum Ketones SMALL H PD MEDICAL DECISION MAKING - ED course Complexity details: reviewed results, re-evaluated patient, considered differential, d/w patient ED course: Patient is a 42-year-old female who presents to the emergency department with poorly controlled diabetes. She was recently taken off of her oral medication and change to Lantus. She is only on 8 units/day at home. We will have her increase this. Given 2 L of IV fluid as well as 12 units of insulin here and h er blood sugar did decrease. She feels better and is tolerating p.o. without difficulty. No evidence of DKA or hyperosmolar nonketotic state. We will have her follow-up closely with her PCP. Patient and family counseled regarding signs and symptoms for which I believe and urgent re-evaluation would be necessary. Patient with good understanding of and agreement to plan and is comfortable going home at this time This document was made in part using voice recognition software. While efforts are made to proofread this document, sound alike and grammatical errors may occur. 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 If it is above 125, increase your lantus by 2 units from the prior day. If your dose was 10, increase to 12, and if the next day your blood sugar is >125, increase it to 14 and so on. Drink plenty of water and follow up closely with your doctor for further care.
[2018-01-17] MEDS ORDERED: INSULIN REGULAR HUMAN 100 UNIT/1 ML 10 ML MDV IVP STA ×2 (20:46→22:01)
[2018-01-17 20:48] LABS: BASOPHILS % (AUTO) 0.5 %; EOSINOPHILS # (AUTO) 0.1 10^3/uL (0.0-0.7); EOSINOPHILS % (AUTO) 0.6 %; HGB - HEMOGLOBIN 11.7 g/dL (12.0-16.0); LYMPHOCYTES # (AUTO) 1.2 10^3/uL (1.5-3.5); LYMPHOCYTES % (AUTO) 13.3 %; MEAN CORPUSCULAR HEMOGLOBIN 28.1 pg (27.0-31.0); MEAN CORPUSCULAR HGB CONC 34.2 g/dL (32.0-36.0); MEAN CORPUSCULAR VOLUME 82.1 fL (81.0-99.0); MONOCYTES # (AUTO) 0.4 10^3/uL (0.0-1.0); MONOCYTES % (AUTO) 4.8 %; NEUTROPHILS # (AUTO) 7.3 10^3/uL (1.5-6.6); NEUTROPHILS % (AUTO) 80.8 %; PLT - PLATELET COUNT 292 10^3/uL (130-450); RED BLOOD COUNT 4.18 10^6/uL (4.20-5.40); RED CELL DISTRIBUTION WIDTH 15.7 % (12.0-15.0); WHITE BLOOD COUNT 9.1 x10^3/uL (4.8-10.8)
[2018-01-17 20:52] LABS: ALBUMIN 3.2 g/dL (3.2-5.5); ALBUMIN/GLOBULIN RATIO 0.7 (1.0-2.2); ALKALINE PHOSPHATASE 123 IU/L (42-121); ALT ALANINE AMINOTRANSFERASE 18 IU/L (10-60); AST ASPARTATE AMINOTRANSFERASE 18 IU/L (10-42); BILIRUBIN,TOTAL 1.4 mg/dL (0.2-1.0); BUN - BLOOD UREA NITROGEN 7 mg/dL (6-20); CALCIUM 8.8 mg/dL (8.5-10.3); CARBON DIOXIDE - CO2 24 mmol/L (21-32); CHLORIDE 95 mmol/L (101-111); CREATININE 0.6 mg/dL (0.4-1.0); GFR - MDRD 111 (>89); GLUCOSE 352 mg/dL (70-100); LIPASE 52 U/L (22-51); SODIUM 131 mmol/L (135-145); TOTAL PROTEIN 7.6 g/dL (6.7-8.2)
[2018-01-17 21:04] LABS: KETONES, SERUM (ACETEST) SMALL (NEGATIVE); VBG PCO2 38.8 mmHg (41-51); VBG PH 7.408 (7.31-7.41)
[2018-01-17 23:26] VITALS: BP 129/76
== END 2018-01-17 23:26 | disposition home or self-care (01) ==
LOC: ED 17:47
DX: E11.65 Type 2 diabetes mellitus with hyperglycemia (principal)
CPT/HCPCS: 36415; 80053; 81003; 81025; 82009; 82803; 83690; 85025; 96360; 96361; 99283; 99284; J1815; 81001; 87086

== ENCOUNTER 2018-02-25 16:15 | Emergency (ER) | payer OTHER ==
[2018-02-25 16:34] VITALS: BP 116/72
--- NOTE | 2018-02-25 16:38 | ED Physician Documentation ---
PD HPI FEMALE - Stated complaint Stated Complaint: FEMALE - Chief complaint Chief Complaint: General - History obtained from History obtained from: Patient - History of Present Illness Timing - onset: How many weeks ago (1) Timing - details: Waxing and waning Associated symptoms: Abdominal pain, Dysuria, Urinary frequency - Additional information Additional information: The patient is a 42-year-old insulin-dependent diabetic female who presents with dysuria and frequency of urination that has been waxing and waning for the past week. She reports mild nausea, without vomiting. She denies fever. The pain radiates to her right lower back. Her last menstrual period ended one week ago. She has a history of similar symptoms with urinary tract infection about 8 years ago. Review of Systems Constitutional: denies: Fever Nose: denies: Congestion Cardiac: denies: Chest pain / pressure Respiratory: denies: Dyspnea, Cough GI: reports: Abdominal Pain, Nausea. denies: Vomiting, Diarrhea : reports: Dysuria, Frequency, LMP (1 week ago.) Skin: denies: Rash Musculoskeletal: reports: Back pain Neurologic: reports: Headache (mild). 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 - Present Medications Home Medications: Ambulatory Orders Medication Instructions Recorded Confirmed Insulin Glargine [Lantus Solostar] 8 units 01/17/18 Phenazopyridine HCl [Pyridium] 200 mg PO TID PRN #6 tablet 02/25/18 cephALEXin [Cephalexin] 500 mg PO TID #20 tablet 02/25/18 - Allergies Allergies/Adverse Reactions: Allergies Allergy/AdvReac Type Severity Reaction Status Date / Time lisinopril Allergy Edema Verified 02/25/18 16:34 - Social History Does the pt smoke?: No Smoking Status: Never smoker Does the pt drink ETOH?: No Does the pt have substance abuse?: No - Immunizations Immunizations are current?: Yes - POLST Patient has POLST: No POLST Status: Full Code PD ED PE NORMAL - Vitals Vital signs reviewed: Yes (tachycardic initially.) - General General: Alert and oriented X 3, Well developed/nourished - HEENT HEENT: Atraumatic, Moist mucous membranes - Neck Neck: No adenopathy - Cardiac Cardiac: No murmur - Respiratory Respiratory: No respiratory distress, Clear bilaterally - Abdomen Abdomen: Soft, Other (Mild suprapubic tenderness, without rebound or guarding.) - Back Back: Other (Mild right CVA tenderness to percussion.) - Derm Derm: No rash - Extremities Extremities: No edema, No calf tenderness / cord - Neuro Neuro: Alert and oriented X 3, No motor deficit, Normal speech Results - Vitals Vitals: Vital Signs - 24 hr 02/25/18 16:20 Temperature 36.4 C L Heart Rate 113 H Respiratory 18 Rate Blood Pressure 116/72 O2 Saturation 97 Oxygen O2 Source Room air - Labs Labs: Microbiology 02/25/18 16:25 Urine Culture - Preliminary Urine,Clean Catch Staphylococcus Aureus Laboratory Tests 02/25/18 02/25/18 16:25 16:47 POC Whole Bld Glucose 345 H Urine Color DK. ORANGE Urine Clarity BLOODY Urine pH 6.5 Ur Specific [place] 1.020 Urine Protein CERAMIC TILE MECHANIC Urine Glucose (UA) CERAMIC TILE MECHANIC Urine Ketones CERAMIC TILE MECHANIC Urine Occult Blood NEGATIVE Urine Nitrite POSITIVE H Urine Bilirubin NEGATIVE Urine Urobilinogen CERAMIC TILE MECHANIC Ur Leukocyte Esterase MODERATE H Urine RBC TNTC H Urine WBC >25 H Urine WBC Clumps PRESENT Ur Squamous Epith Cells FEW Squamous Urine Bacteria Many H Ur Microscopic Review INDICATED Urine Culture Comments INDICATED Urine HCG, Qual NEGATIVE PD MEDICAL DECISION MAKING - ED course Complexity details: reviewed old records, reviewed results, re-evaluated patient, considered differential, d/w patient ED course: The patient's presentation is significant for urinary tract infection in an insulin-dependent diabetic. Her presentation does not suggest pyelonephritis nor sepsis. Her blood sugar is elevated at 345. Treatment in the emergency department included administration of 8 units regular insulin subcutaneously, cephalexin 500 mg orally, and Pyridium 200 mg orally. She is being discharged with prescriptions for cephalexin and Pyridium. I discussed with her the diagnosis, antibiotic treatment and outpatient follow-up, as well as potentially worrisome signs or symptoms that should prompt reevaluation in the emergency department. 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 Take Cephalexin three times daily as prescribed. You can use Pyridium as prescribed if needed for painful urination. You can use Tylenol or ibuprofen as needed for fever or discomfort. Follow up with your primary physician within 2 weeks. Call to schedule appointment. Return to the emergency department if you develop increasing abdominal pain, fever with shaking chills, persistent vomiting, or otherwise worsening symptoms. Discharge Date/Time: 02/25/18 17:54
[2018-02-25] MEDS ORDERED: INSULIN REGULAR HUMAN 100 UNIT/1 ML 10 ML MDV SUBQ STA (17:15)
[2018-02-25 17:17] LABS: LEUKOCYTE ESTERASE, URINE MODERATE (NEGATIVE); NITRITE,URINE POSITIVE (NEGATIVE); OCCULT BLOOD,URINE NEGATIVE (NEGATIVE); PH,URINE 6.5 PH (5.0-7.5)
[2018-02-25 17:22] LABS: BILIRUBIN,URINE NEGATIVE (NEGATIVE); CLARITY,URINE BLOODY (CLEAR); HCG UR QUAL NEGATIVE; ICTOTEST,URINE NEGATIVE
[2018-02-25 17:24] LABS: BACTERIA,URINE Many /HPF (None Seen); RBC,URINE TNTC /HPF (0-5); SQUAMOUS EPITHELIAL CELL,UR FEW Squamous (<= Few); WBC CLUMPS,URINE PRESENT
[2018-02-25] MEDS ORDERED: cephALEXin 250 MG CAPSULE PO STA (17:35)
[2018-02-25] MEDS ORDERED: PHENAZOPYRIDINE 100 MG TABLET PO STA (17:35)
== END 2018-02-25 17:54 | disposition home or self-care (01) ==
LOC: ED 16:15
DX: N30.01 Acute cystitis with hematuria (principal); E11.65 Type 2 diabetes mellitus with hyperglycemia; Z79.4 Long term (current) use of insulin
CPT/HCPCS: 81001; 81025; 87086; 99283; A9270; J1815; 81003; 87181

== ENCOUNTER 2018-04-18 18:08 | Emergency (ER) | payer OTHER ==
[2018-04-18 19:06] LABS: EOSINOPHILS # (AUTO) 0.3 10^3/uL (0.0-0.7); EOSINOPHILS % (AUTO) 6.7 %; HGB - HEMOGLOBIN 11.7 g/dL (12.0-16.0); LYMPHOCYTES # (AUTO) 1.1 10^3/uL (1.5-3.5); LYMPHOCYTES % (AUTO) 23.8 %; MEAN CORPUSCULAR HEMOGLOBIN 26.3 pg (27.0-31.0); MEAN CORPUSCULAR HGB CONC 32.9 g/dL (32.0-36.0); MEAN CORPUSCULAR VOLUME 79.7 fL (81.0-99.0); MEAN PLATELET VOLUME 6.9 fL (7.9-10.8); MONOCYTES # (AUTO) 0.4 10^3/uL (0.0-1.0); MONOCYTES % (AUTO) 8.7 %; NEUTROPHILS # (AUTO) 2.8 10^3/uL (1.5-6.6); NEUTROPHILS % (AUTO) 59.8 %; PLT - PLATELET COUNT 192 10^3/uL (130-450); RED BLOOD COUNT 4.45 10^6/uL (4.20-5.40); RED CELL DISTRIBUTION WIDTH 15.3 % (12.0-15.0); WHITE BLOOD COUNT 4.7 x10^3/uL (4.8-10.8)
[2018-04-18 19:26] LABS: ALBUMIN 3.2 g/dL (3.2-5.5); ALBUMIN/GLOBULIN RATIO 0.6 (1.0-2.2); BILIRUBIN,TOTAL 0.8 mg/dL (0.2-1.0); CALCIUM 8.7 mg/dL (8.5-10.3); CREATININE 0.8 mg/dL (0.4-1.0); TOTAL PROTEIN 8.4 g/dL (6.7-8.2)
[2018-04-18] MEDS ORDERED: KETOROLAC 60 MG/2 ML VIAL IM STA (19:55)
--- NOTE | 2018-04-18 19:56 | ED Physician Documentation ---
History of Present Illness - Stated complaint Stated Complaint: CP/L HAND PX - Chief complaint Chief Complaint: Cardiac - History obtained from History obtained from: Patient, Family - History of Present Illness Timing: Today, How many hours ago (10) Pain level max: 5 Pain level now: 5 - Additonal information Additional information: 43-year-old female with left-sided chest pain since 9 AM today. This been constant. Worse with movement and better with lying still. Also has been complaining of thigh pain intermittently for the past few weeks. Has not been checking her blood sugars regularly at home. No recent trauma. No fever. No cough. No history of acute coronary syndrome. No recent travel. No leg swelling. 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 - Present Medications Home Medications: Ambulatory Orders Medication Instructions Recorded Confirmed Insulin Glargine [Lantus Solostar] 8 units 01/17/18 Meloxicam [Mobic] 15 mg PO DAILY PRN #20 tablet 04/18/18 - Allergies Allergies/Adverse Reactions: Allergies Allergy/AdvReac Type Severity Reaction Status Date / Time lisinopril Allergy Edema Verified 04/18/18 18:16 - Social History Does the pt smoke?: No Smoking Status: Never smoker Does the pt drink ETOH?: No Does the pt have substance abuse?: No - Immunizations Immunizations are current?: Yes - POLST Patient has POLST: No POLST Status: Full Code PD ED PE NORMAL - Vitals Vital signs reviewed: Yes - General General: Alert and oriented X 3, No acute distress - HEENT HEENT: Moist mucous membranes - Neck Neck: Supple, no meningeal sign - Cardiac Cardiac: RRR, Strong equal pulses, Other (Tender to palpation across the anterior chest wall, reproduces her pain. Pain is also reproduced with movement of the left arm especially against resistance.) - Respiratory Respiratory: No respiratory distress, Clear bilaterally - Abdomen Abdomen: Soft, Non tender, Non distended - Back Back: No spinal TTP - Derm Derm: Warm and dry, No rash - Extremities Extremities: No edema, No calf tenderness / cord - Neuro Neuro: Alert and oriented X 3 - Psych Psych: Normal mood, Normal affect Results - Vitals Vitals: Vital Signs - 24 hr 04/18/18 04/18/18 18:10 20:37 Temperature 36.2 C L Heart Rate 102 H 94 Respiratory 16 20 Rate Blood Pressure 121/78 108/72 O2 Saturation 100 99 Oxygen O2 Source Room air - EKG (time done) 1821 Rate: Rate (enter#) (95) Rhythm: NSR [place]: Normal Intervals: Normal DC QRS: Normal Ischemia: Normal ST segments - Labs Labs: Laboratory Tests 04/18/18 04/18/18 04/18/18 19:02 19:02 19:02 WBC 4.7 L RBC 4.45 Hgb 11.7 L Hct 35.5 L MCV 79.7 L MCH 26.3 L MCHC 32.9 RDW 15.3 H Plt Count 192 MPV 6.9 L Neut # (Auto) 2.8 Lymph # (Auto) 1.1 L [place] # (Auto) 0.4 Eos # (Auto) 0.3 Baso # (Auto) 0.0 Absolute Nucleated RBC 0.00 Nucleated RBC % 0.1 Sodium 134 L Potassium 4.2 Chloride 102 Carbon Dioxide 26 Anion Gap 6.0 BUN 17 Creatinine 0.8 Estimated GFR (MDRD) 79 L Glucose 258 H Calcium 8.7 Total Bilirubin 0.8 AST 22 ALT 14 Alkaline Phosphatase 54 Troponin I < 0.04 Total Protein 8.4 H Albumin 3.2 Globulin 5.2 H Albumin/Globulin Ratio 0.6 L Lipase 26 - Rads (name of study) Chest x-ray Radiology: Prelim report reviewed, EMP read contemporaneously, See rad report (No acute abnormality) PD MEDICAL DECISION MAKING - ED course Complexity details: reviewed results, re-evaluated patient, considered differential (No ST elevation MD, no aortic dissection, no PE, no tension pneumothorax, no aortic aneurysm), d/w patient, d/w family ED course: 43-year-old female with atypical chest pain, appears musculoskeletal. Reproducible by palpation and movement of the arm. Feels better after Toradol and IV fluids. Symptoms resolved. Will follow up with her doctor for further care. Will prescribe Mobic for home. Recommend that she keep a log of her blood sugars daily for her doctor. Patient counseled regarding signs and symptoms for which I believe and urgent re-evaluation would be necessary. Patient with good understanding of and agreement to plan and is comfortable going home at this time This document was made in part using voice recognition software. While efforts are made to proofread this document, sound alike and grammatical errors may occur. Departure - Departure Disposition: Home, Self Care Clinical Impression: Muscle pain Chest pain Qualifiers: Chest pain type: unspecified Qualified Code(s): R07.9 - Chest pain, unspecified Condition: Good Instructions: ED Chest Pain Atypical Unkn Cause Follow-Up: Derick Paul MD [Primary Care Provider] - Within 1 week Prescriptions: Meloxicam [Mobic] 15 mg PO DAILY PRN #20 tablet PRN Reason: pain Comments: The cause of your symptoms is unclear today but does not appear to be related to your heart. It may be related to muscle aches. Drink plenty of fluids and check your blood sugars at home so that your doctor can adjust your medications. You should have a cardiac stress test with your doctor within the next week. Return if you worsen.
--- NOTE | 2018-04-18 20:39 | XRAY Report ---
Reason: cp Procedure Date: 04/18/2018 Accession Number: [id number] / [id number] Procedure: XR - Chest 1 View X-Ray CPT Code: 34291 FULL RESULT: EXAM: CHEST RADIOGRAPHY EXAM DATE: 04/18/2018 08:20 PM. CLINICAL HISTORY: Cp. COMPARISON: None. TECHNIQUE: 1 view. FINDINGS: Lungs/Pleura: No dense consolidation. No large effusion or pneumothorax. No pulmonary edema. Mediastinum: Heart and mediastinal contours are unremarkable. Other: None. IMPRESSION: No acute radiographic pulmonary abnormalities. RADIA
[2018-04-18 23:08] VITALS: BP 108/72
== END 2018-04-18 21:50 | disposition home or self-care (01) ==
LOC: ED 18:08
DX: R07.89 Other chest pain (principal); E11.9 Type 2 diabetes mellitus without complications; Z79.4 Long term (current) use of insulin
CPT/HCPCS: 36415; 71045; 80053; 83690; 84484; 85025; 93005; 96372; 99283; 99284

== ENCOUNTER 2018-07-27 10:35 | Emergency (ER) | payer OTHER ==
[2018-07-27 10:58] VITALS: BP 118/77
[2018-07-27] MEDS ORDERED: predniSONE 20 MG TABLET PO STA (12:28)
--- NOTE | 2018-07-27 12:31 | ED Physician Documentation ---
PD HPI SKIN - Stated complaint Stated Complaint: RASH ON BODY - Chief complaint Chief Complaint: Wound - History obtained from History obtained from: Patient - History of Present Illness Timing - onset: Today Timing - duration: Days Timing - details: Gradual onset Pain level max: 0 Pain level now: 0 Location: Bodywide Quality / character: Itchy, Discolored (erythematous), Raised Improved by: Other (hasn't taken anything) Worsened by (comment): COMMENT (nothing) Associated symptoms: No: Fever, Myalgias, Joint pain, Headache, Facial swelling, Dyspnea, Abd pain, N/V/D, Urinary sx Contributing factors: No: Exposed to medication, Exposed to food, Exposed to soap / lotion, Exposed to Poison lanny/oak, Insect bite /sting, Recent illness Similar symptoms before: Has not had sx before Review of Systems Constitutional: denies: Fever, Chills Respiratory: denies: Cough, Wheezing GI: denies: Nausea, Vomiting, Diarrhea : denies: Now EGA PD PAST MEDICAL HISTORY - Past Medical History Past Medical History: Yes Cardiovascular: Other Endocrine/Autoimmune: Type 2 diabetes - Past Surgical History Past Surgical History: No 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 - Present Medications Home Medications: Ambulatory Orders Medication Instructions Recorded Confirmed Insulin Glargine [Lantus Solostar] 8 units ABBOJECT DAILY 01/17/18 predniSONE [Deltasone] 10 mg PO [id number] #42 tab 07/27/18 - Allergies Allergies/Adverse Reactions: Allergies Allergy/AdvReac Type Severity Reaction Status Date / Time lisinopril Allergy Edema Verified 07/27/18 10:58 - Social History Does the pt smoke?: No Smoking Status: Never smoker Does the pt drink ETOH?: No Does the pt have substance abuse?: No - Immunizations Immunizations are current?: Yes - POLST Patient has POLST: No POLST Status: Full Code PD ED PE NORMAL - Vitals Vital signs reviewed: Yes - General General: Alert and oriented X 3 - HEENT HEENT: Moist mucous membranes - Neck Neck: Supple, no meningeal sign - Cardiac Cardiac: RRR - Respiratory Respiratory: No respiratory distress, Clear bilaterally - Derm Derm: Warm and dry, Other (Diffuse papular exanthem. Excoriation thornton present. Blanches easily.) - Neuro Neuro: Alert and oriented X 3 Results - Vitals Vitals: Vital Signs - 24 hr 07/27/18 10:56 Temperature 36.1 C L Heart Rate 90 Respiratory 16 Rate Blood Pressure 118/77 O2 Saturation 100 Oxygen O2 Source Room air PD MEDICAL DECISION MAKING - ED course Complexity details: considered differential, d/w patient ED course: Patient with dermatitis of unclear etiology. Will place on steroids and Zyrtec for home. Patient counseled regarding signs and symptoms for which I believe and urgent re-evaluation would be necessary. Patient with good understanding of and agreement to plan and is comfortable going home at this time This document was made in part using voice recognition software. While efforts are made to proofread this document, sound alike and grammatical errors may occur. Departure - Departure Disposition: 01 Home, Self Care Clinical Impression: Dermatitis Condition: Good Instructions: ED Dermatitis Non Specific Rash Follow-Up: Derick Paul MD [Primary Care Provider] - Within 1 week Prescriptions: predniSONE [Deltasone] 10 mg PO [id number] #42 tab Comments: You can also take zyrtec or claritin with this. Return if you worsen. the cause of the rash is unclear today. Forms: Activity restrictions Discharge Date/Time: 07/27/18 12:43
== END 2018-07-27 12:43 | disposition home or self-care (01) ==
LOC: ED 10:35
DX: L30.9 Dermatitis, unspecified (principal); E11.9 Type 2 diabetes mellitus without complications; Z79.4 Long term (current) use of insulin
CPT/HCPCS: 99283; J7512

== ENCOUNTER 2018-08-26 16:07 | Emergency (ER) | payer OTHER ==
[2018-08-26] MEDS ORDERED: SODIUM CHLORIDE 0.9% 1,000 ML IV ONE (16:32)
[2018-08-26] MEDS ORDERED: KETOROLAC 30 MG/ML VIAL IVP STA (16:32)
[2018-08-26] MEDS ORDERED: diphenhydrAMINE INJ 50 MG/ML VIAL IVP STA (16:32)
[2018-08-26] MEDS ORDERED: METOCLOPRAMIDE 10 MG/2 ML VIAL IVP STA (16:32)
[2018-08-26] MEDS ORDERED: DEXAMETHASONE 10 MG/ML VIAL IVP STA (16:32)
--- NOTE | 2018-08-26 16:34 | ED Physician Documentation ---
PD HPI HEADACHE - Stated complaint Stated Complaint: MOODY - Chief complaint Chief Complaint: Neuro - History obtained from History obtained from: Patient - History of Present Illness Timing - onset: Yesterday (43-year-old woman had a gradual onset right-sided headache radiating to the right neck and shoulder similar to prior migraines. She says she had a similar headache about a [place] which was helpful but it took a long time to work. This started yesterday, and got worse overnight. She is light sensitive but has not been vomiting.) Review of Systems Ten Systems: 10 systems reviewed and negative Constitutional: denies: Fever, Chills Nose: denies: Rhinorrhea / runny nose, Congestion Respiratory: denies: Dyspnea, Cough GI: reports: Nausea. 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 - Present Medications Home Medications: Ambulatory Orders Medication Instructions Recorded Confirmed Insulin Glargine [Lantus Solostar] 8 units ABBOJECT DAILY 01/17/18 RX: predniSONE [Deltasone] 10 mg PO [id number] #42 tab 07/27/18 Hydrocodone/Acetaminophen 1 - 2 each PO Q6H PRN #7 tablet 08/26/18 [Hydrocodon-Acetaminophen 5-325] SUMAtriptan [Imitrex] 25 mg PO BID PRN #10 tablet 08/26/18 - Allergies Allergies/Adverse Reactions: Allergies Allergy/AdvReac Type Severity Reaction Status Date / Time lisinopril Allergy Edema Verified 08/26/18 16:18 - Social History Does the pt smoke?: No Smoking Status: Never smoker Does the pt drink ETOH?: No Does the pt have substance abuse?: No - Immunizations Immunizations are current?: Yes - POLST Patient has POLST: No POLST Status: Full Code PD ED PE NORMAL - Vitals Vital signs reviewed: Yes - General General: Alert and oriented X 3, No acute distress - HEENT HEENT: PERRL, EOMI - Neck Neck: Supple, no meningeal sign, No bony TTP, Other (Tender over the right sternocleidomastoid and shoulder consistent with muscle spasm) - Neuro Neuro: Alert and oriented X 3, rail grinder 2-12 intact Eye Opening: Spontaneous Motor: Obeys Commands Verbal: Oriented GCS Score: 15 - Psych Psych: Normal mood, Normal affect Results - Vitals Vitals: Vital Signs - 24 hr 08/26/18 08/26/18 16:15 18:21 Temperature 36.8 C Heart Rate 130 H 108 H Respiratory 18 22 Rate Blood Pressure 127/74 108/66 O2 Saturation 98 97 Oxygen O2 Source Room air PD MEDICAL DECISION MAKING - ED course ED course: The headache is gradual in onset and similar to prior headaches. As such I doubt subarachnoid hemorrhage. There are no infectious symptoms such as fever or stiff neck to make me suspect meningitis. No carbon monoxide exposure by history. Pain was difficult to control, initially received Toradol, Benadryl, Reglan, dexamethasone. She had some relief with that but it was not great. This was followed by Imitrex And eventually 1 dose of narcotic which helped. Departure - Departure Disposition: Home, Self Care Clinical Impression: Headache Condition: Good Record reviewed to determine appropriate education?: Yes Instructions: ED Cephalgia Unspecified Prescriptions: Hydrocodone/Acetaminophen [Hydrocodon-Acetaminophen 5-325] 1 - 2 each PO Q6H PRN #7 tablet PRN Reason: pain SUMAtriptan [Imitrex] 25 mg PO BID PRN #10 tablet PRN Reason: Headache Comments: Call your doctor to arrange a follow-up appointment, make the next available appointment. In the interim, return anytime if worse or if new symptoms develop. Forms: Activity restrictions Discharge Date/Time: 08/26/18 19:22
[2018-08-26] MEDS ORDERED: PROCHLORPERAZINE 10 MG/2 ML VIAL IVP STA (17:25)
[2018-08-26] MEDS ORDERED: SUMAtriptan 6 MG/0.5 ML VIAL SUBQ STA (17:25)
[2018-08-26] MEDS ORDERED: HYDROmorphone 1 MG/ML CARPUJECT IVP STA (18:07)
[2018-08-26 18:22] VITALS: BP 108/66
--- NOTE | 2018-08-26 19:01 | CT Report ---
Reason: headache Procedure Date: 08/26/2018 Accession Number: [id number] / [id number] Procedure: CT - HEAD WO CPT Code: FULL RESULT: EXAM: CT HEAD EXAM DATE: 08/26/2018 06:24 PM. CLINICAL HISTORY: Headache. COMPARISON: None. TECHNIQUE: Multiaxial CT images were obtained from the foramen magnum to the vertex. Reformats: Sagittal and coronal. IV contrast: None. In accordance with CT protocol optimization, one or more of the following dose reduction techniques were utilized for this exam: automated exposure control, adjustment of mA and/or KV based on patient size, or use of iterative reconstructive technique. FINDINGS: Parenchyma: No intraparenchymal hemorrhage. No evidence of mass, midline shift, or CT findings of infarction. Holman-white differentiation is distinct. Extraaxial Spaces: Normal for age. No subdural or epidural collections identified. Ventricles: Normal in size and position. Sinuses and Orbits: Imaged paranasal sinuses, orbits, and mastoids show no significant abnormality. Bones: No evidence of fracture or calvarial defect. Other: None. IMPRESSION: Normal head CT. RADIA
== END 2018-08-26 19:22 | disposition home or self-care (01) ==
LOC: ED 16:07
DX: R51 Headache (principal); E11.9 Type 2 diabetes mellitus without complications; Z79.4 Long term (current) use of insulin
CPT/HCPCS: 70450; 96361; 96372; 96374; 96375; 99283; 99284; J1170; J1200; J2765

== ENCOUNTER 2018-08-28 22:24 | Emergency (ER) | payer OTHER ==
--- NOTE | 2018-08-28 22:58 | ED Physician Documentation ---
PD HPI URI - Stated complaint Stated Complaint: MOODY/BODY ACHES - Chief complaint Chief Complaint: Heent - History obtained from History obtained from: Patient - History of Present Illness Timing - onset: How many days ago (3-4) Timing duration: Days (She has had several days of feeling general body aches, headache, malaise and some nausea. Go she was seen a couple of days ago for the headache component which was more prominent at that point. She states the headache has continued but has developed more of the general malaise and nausea and also having some lower abdominal pain. She is also feeling feverish and chills at home today.) Timing details: Gradual onset, Still present Associated symptoms: Fever (today), Other (general malaise, today with lower abd pain more to the right, and some back pain. Nausea with some vomiting but trying to take fluids. Has had the headache for the several days.). No: Sore throat, D ry cough, Dyspnea Contributing factors: No: Sick contact, Immunocompromised Similar symptoms before: Has not had sx before Recently seen: Emergency Dept (couple days ago for headache and malaise, nausea. Had head CT and given meds for possible migraine and was improved at the time.) Review of Systems Constitutional: reports: Fever, Myalgias, Fatigue Nose: denies: Rhinorrhea / runny nose, Congestion Throat: denies: Sore throat Cardiac: denies: Chest pain / pressure Respiratory: denies: Cough GI: reports: Abdominal Pain (the past day, lower abd more to the right), Nausea, Vomiting. denies: Diarrhea : reports: Hematuria. denies: Dysuria, Frequency Skin: denies: Rash, Lesions Musculoskeletal: reports: Back pain (lower to mid back). denies: Neck pain Neurologic: reports: Generalized weakness, Headache. 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 - Present Medications Home Medications: Ambulatory Orders Medication Instructions Recorded Confirmed Insulin Glargine [Lantus Solostar] 8 units ABBOJECT DAILY 01/17/18 predniSONE [Deltasone] 10 mg PO [id number] #42 tab 07/27/18 Hydrocodone/Acetaminophen 1 - 2 each PO Q6H PRN #7 tablet 05/07/19 [Hydrocodon-Acetaminophen 5-325] SUMAtriptan [Imitrex] 25 mg PO BID PRN #10 tablet 08/26/18 Cephalexin [Keflex] 500 mg PO Q6H #28 capsule 08/29/18 Hydrocodone/Acetaminophen [[place] 1 each PO Q6H PRN #15 tablet 08/29/18 5-325 Tablet] Naproxen 375 mg PO BID #20 tablet 08/29/18 Ondansetron Odt [Zofran] 4 mg TL Q6H PRN #10 tablet 08/29/18 - Allergies Allergies/Adverse Reactions: Allergies Allergy/AdvReac Type Severity Reaction Status Date / Time lisinopril Allergy Edema Verified 08/28/18 22:37 - Social History Does the pt smoke?: No Smoking Status: Never smoker Does the pt drink ETOH?: No Does the pt have substance abuse?: No - Immunizations Immunizations are current?: Yes - POLST Patient has POLST: No POLST Status: Full Code PD ED PE NORMAL - Vitals Vital signs reviewed: Yes - General General: Alert and oriented X 3, Well developed/nourished, Other (She appears uncomfortable with general headache and back pain and body aches. She is alert and conversant.) - HEENT HEENT: Ears normal, Moist mucous membranes, Pharynx benign - Neck Neck: No bony TTP, No adenopathy, Other (Some tenderness along the lateral aspects of the neck. There is no midline tenderness.) - Cardiac Cardiac: No murmur. No: RRR (tachycardic but regular) - Respiratory Respiratory: Clear bilaterally - Abdomen Abdomen: Soft, Non distended, No organomegaly, Other (She has tenderness in the lower abdomen along the suprapubic and right lower quadrant area. There is some mild guarding but no percussion or rebound tenderness. There is some left CVA tenderness.). No: Normal bowel sounds (decreased) - Female Female : Deferred - Rectal Rectal: Deferred - Back Back: No spinal TTP - Derm Derm: Normal color, Warm and dry, No rash - Neuro Neuro: Alert and oriented X 3, No motor deficit, No sensory deficit, Normal speech Eye Opening: Spontaneous Motor: Obeys Commands Verbal: Oriented GCS Score: 15 Results - Vitals Vitals: Vital Signs - 24 hr 08/28/18 08/28/18 08/28/18 22:35 22:37 22:50 Temperature 38.1 C H Heart Rate 137 H 132 H 122 H Respiratory 24 24 19 Rate Blood Pressure 85/70 L 134/80 H O2 Saturation 99 100 100 08/28/18 08/29/18 08/29/18 22:56 00:54 02:30 Temperature 38.5 C H 36.2 C L Heart Rate 125 H 107 H 94 Respiratory 22 20 16 Rate Blood Pressure 134/80 H 90/55 L 76/51 L O2 Saturation 99 93 95 08/29/18 03:53 Temperature Heart Rate 93 Respiratory 20 Rate Blood Pressure 98/66 O2 Saturation 98 Oxygen O2 Source Room air - Labs Labs: Laboratory Tests 08/28/18 08/29/18 08/29/18 23:05 00:00 00:00 WBC 3.9 L RBC 3.91 L Hgb 11.0 L Hct 31.7 L MCV 81.1 MCH 28.2 MCHC 34.8 RDW 15.1 H Plt Count 134 MPV 7.5 L Neut # (Auto) 3.2 Lymph # (Auto) 0.4 L [place] # (Auto) 0.3 Eos # (Auto) 0.0 Baso # (Auto) 0.0 Absolute Nucleated RBC 0.00 Nucleated RBC % 0.1 Sodium 129 L Potassium 3.5 Chloride 94 L Carbon Dioxide 21 Anion Gap 14.0 H BUN 12 Creatinine 0.6 Estimated GFR (MDRD) 110 Glucose 466 H Lactic Acid Calcium 8.0 L Total Bilirubin 1.5 H AST 29 ALT 22 Alkaline Phosphatase 73 Total Protein 6.8 Albumin 2.9 L Globulin 3.9 Albumin/Globulin Ratio 0.7 L Lipase 21 L Urine Color Urine Clarity Urine pH Ur Specific [place] Urine Protein Urine Glucose (UA) Urine Ketones Urine Occult Blood Urine Nitrite Urine Bilirubin Urine Urobilinogen Ur Leukocyte Esterase Urine RBC Urine WBC Ur Squamous Epith Cells Urine Bacteria Ur Microscopic Review Urine Culture Comments Influenza A (Rapid) Negative Influenza B (Rapid) Negative 08/29/18 08/29/18 00:00 02:26 WBC RBC Hgb Hct MCV MCH MCHC RDW Plt Count MPV Neut # (Auto) Lymph # (Auto) [place] # (Auto) Eos # (Auto) Baso # (Auto) Absolute Nucleated RBC Nucleated RBC % Sodium Potassium Chloride Carbon Dioxide Anion Gap BUN Creatinine Estimated GFR (MDRD) Glucose Lactic Acid 1.3 Calcium Total Bilirubin AST ALT Alkaline Phosphatase Total Protein Albumin Globulin Albumin/Globulin Ratio Lipase Urine Color DARK YELLOW Urine Clarity CLEAR Urine pH 6.5 Ur Specific [place] <=1.005 Urine Protein TRACE Urine Glucose (UA) 500 H Urine Ketones 15 H Urine Occult Blood MODERATE H Urine Nitrite NEGATIVE Urine Bilirubin NEGATIVE Urine Urobilinogen 4 H Ur Leukocyte Esterase NEGATIVE Urine RBC 6-10 H Urine WBC 6-10 H Ur Squamous Epith Cells FEW Squamous Urine Bacteria Few Ur Microscopic Review INDICATED Urine Culture Comments INDICATED Influenza A (Rapid) Influenza B (Rapid) - Rads (name of study) ad/pelvic CT Radiology: Prelim report reviewed (Normal appendix. She has have some inflammation of the left kidney consistent with pyelonephritis. No kidney stones.), See rad report PD MEDICAL DECISION MAKING - ED course Complexity details: reviewed results (There is signs of pyelonephritis on CT scan and no other acute infectious process. Her urinalysis is consistent with some infection. She is feeling improved with IV fluids and some medications. She is given antibiotics for the urinary tract infection after discussion with her about potential spinal tap. She has had the headache malaise myalgias and now fever. She had a CT scan couple of days ago that was normal. I discussed with her essentially doing us lumbar puncture to evaluate for signs of infection in the CSF. We did have an identified infection of the urinary tract and so would be looking for additional infection sources as well. She had had a remote prior experience with a lumbar puncture that was very painful and took several attempts. She opted to not have the spinal tap at this time going with the identified source of infection in the urinary tract. Her agreed with that. She is discharged with improved symptoms and looking better.), considered differential (She has general malaise and fevers along with headache but is also having lower abdominal pain and back pain. She had started with the general malaise and headache at first. She did have a recent CT scan. Consider general flu like illness, also consider Menin angitis with the headache and nausea. Also consider lower abdominal process such as urinary tract your appendix given the lower belly pain. We will give her some IV fluids and medications and get a CT scan of her belly.), d/w patient Departure - Departure Disposition: 01 Home, Self Care Clinical Impression: Pyelonephritis, Hyperglycemia Headache Qualifiers: Headache type: unspecified Headache chronicity pattern: acute headache Intractability: not intractable Qualified Code(s): R51 - Headache Fever Qualifiers: Fever type: unspecified Qualified Code(s): R50.9 - Fever, unspecified Condition: Stable Record reviewed to determine appropriate education?: Yes Instructions: ED Kidney Infec Female Follow-Up: Derick Paul MD [Primary Care Provider] - Prescriptions: Cephalexin [Keflex] 500 mg PO Q6H #28 capsule Hydrocodone/Acetaminophen [[place] 5-325 Tablet] 1 each PO Q6H PRN #15 tablet PRN Reason: Pain Naproxen 375 mg PO BID #20 tablet Ondansetron Odt [Zofran] 4 mg TL Q6H PRN #10 tablet PRN Reason: Nausea / Vomiting Comments: Stay well-hydrated. Use naproxen or ibuprofen twice daily for the next week. Add Tylenol or hydrocodone if needed for pains and headache. Cephalexin antibiotic as directed for the urinary tract infection. Recheck if not improved well over the next 1 to 2 days and return sooner if worse. Your blood sugar is elevated here and be sure to take your medication when you are home. Blood sugars can commonly be elevated with infections. States that that improves over the next day or 2 as well. Use ondansetron if needed for nausea. Forms: Activity restrictions Discharge Date/Time: 08/29/18 04:25
[2018-08-28] MEDS ORDERED: SODIUM CHLORIDE 0.9% 1,000 ML IV ONE (23:40)
[2018-08-28] MEDS ORDERED: KETOROLAC 30 MG/ML VIAL IVP STA (23:41)
[2018-08-28] MEDS ORDERED: ONDANSETRON 4 MG/2 ML VIAL IVP STA (23:41)
[2018-08-28] MEDS ORDERED: MORPHINE 10 MG/ML VIAL IVP STA (23:42)
[2018-08-29 00:11] LABS: BASOPHILS % (AUTO) 0.3 %; LYMPHOCYTES # (AUTO) 0.4 10^3/uL (1.5-3.5); LYMPHOCYTES % (AUTO) 10.7 %; MEAN CORPUSCULAR HEMOGLOBIN 28.2 pg (27.0-31.0); MEAN CORPUSCULAR HGB CONC 34.8 g/dL (32.0-36.0); MEAN CORPUSCULAR VOLUME 81.1 fL (81.0-99.0); MEAN PLATELET VOLUME 7.5 fL (7.9-10.8); MONOCYTES # (AUTO) 0.3 10^3/uL (0.0-1.0); MONOCYTES % (AUTO) 7.6 %; NEUTROPHILS # (AUTO) 3.2 10^3/uL (1.5-6.6); NEUTROPHILS % (AUTO) 81.4 %; PLT - PLATELET COUNT 134 10^3/uL (130-450); RED BLOOD COUNT 3.91 10^6/uL (4.20-5.40); RED CELL DISTRIBUTION WIDTH 15.1 % (12.0-15.0); WHITE BLOOD COUNT 3.9 x10^3/uL (4.8-10.8)
[2018-08-29 00:21] LABS: ALBUMIN 2.9 g/dL (3.2-5.5); ALBUMIN/GLOBULIN RATIO 0.7 (1.0-2.2); BILIRUBIN,TOTAL 1.5 mg/dL (0.2-1.0); CREATININE 0.6 mg/dL (0.4-1.0); TOTAL PROTEIN 6.8 g/dL (6.7-8.2)
[2018-08-29] MEDS ORDERED: IOVERSOL 320 100 ML VIAL IVP ONE ×2 (00:28→00:55)
--- NOTE | 2018-08-29 01:22 | CT Report ---
Reason: lower right abd tenderness Procedure Date: 08/29/2018 Accession Number: [id number] / [id number] Procedure: CT - Abdomen/Pelvis W CPT Code: FULL RESULT: EXAM: CT ABDOMEN AND PELVIS EXAM DATE: 08/29/2018 12:56 AM. CLINICAL HISTORY: Lower right abdominal tenderness. COMPARISONS: ABDOMEN/PELVIS W/ 01/05/2018 11:12 AM. TECHNIQUE: Routine helical CT imaging was performed through the abdomen and pelvis. IV contrast: Yes. Enteric contrast: No. Reconstructions: Coronal and sagittal. In accordance with CT protocol optimization, one or more of the following dose reduction techniques were utilized for this exam: automated exposure control, adjustment of mA and/or KV based on patient size, or use of iterative reconstructive technique. FINDINGS: Lung Bases: Unremarkable. Liver: Unremarkable. No suspicious masses. Gallbladder/Bile Ducts: Unremarkable post-cholecystectomy. Spleen: Mildly to moderately enlarged at more than 15 cm in length. Pancreas: Unremarkable. Adrenal Glands: Unremarkable. Kidneys: Heterogeneous hypodense attenuation of the interpolar left kidney, consistent with pyelonephritis. No suspicious masses or hydronephrosis. Peritoneal Cavity/Bowel: No bowel obstruction or inflammatory process seen. No free air or significant free fluid. No masses or adenopathy. The appendix is normal. No excessive stool burden. Pelvic Organs: Bladder, uterus, and adnexa appear unremarkable. Vasculature: No aneurysms or other significant abnormality. Bones: No significant abnormality. Other: None. IMPRESSION: 1. Mild left pyelonephritis. 2. No etiology for right lower quadrant pain seen. 3. Mild to moderate splenomegaly. 4. Previous cholecystectomy. RADIA
[2018-08-29] MEDS ORDERED: cefTRIAXone 1 GM VIAL IVP STA (01:56)
[2018-08-29] MEDS ORDERED: HYDROmorphone 1 MG/ML CARPUJECT IVP STA (02:14)
[2018-08-29 02:32] LABS: BILIRUBIN,URINE NEGATIVE (NEGATIVE); GLUCOSE, URINE (UA) 500 mg/dL (NEGATIVE); KETONES,URINE (UA) 15 mg/dL (NEGATIVE); LEUKOCYTE ESTERASE, URINE NEGATIVE (NEGATIVE); NITRITE,URINE NEGATIVE (NEGATIVE); OCCULT BLOOD,URINE MODERATE (NEGATIVE); PH,URINE 6.5 PH (5.0-7.5); PROTEIN,URINE TRACE mg/dL (NEGATIVE); UROBILINOGEN,URINE 4 E.U./dL (NORMAL)
[2018-08-29] MEDS ORDERED: SODIUM CHLORIDE 0.9% 1,000 ML IV ONE (02:38)
[2018-08-29 02:41] LABS: CLARITY,URINE CLEAR (CLEAR)
[2018-08-29 02:46] LABS: BACTERIA,URINE Few /HPF (None Seen); SQUAMOUS EPITHELIAL CELL,UR FEW Squamous (<= Few)
[2018-08-29 03:54] VITALS: BP 98/66
[2018-08-29] MEDS ORDERED: HYDROcod/ACET 5/325 Prepack 4 PO STA (03:55)
[2018-08-29] MEDS ORDERED: ONDANSETRON ODT 4 MG Prepack 2 TL PRN (03:55)
[2018-08-29] MEDS ORDERED: ACETAMINOPHEN 1,000 MG/100 ML 100 ML IV STA (03:55)
== END 2018-08-29 04:25 | disposition home or self-care (01) ==
LOC: ED 22:24
DX: N12 Tubulo-interstitial nephritis, not specified as acute or chronic (principal); E11.65 Type 2 diabetes mellitus with hyperglycemia; Z79.4 Long term (current) use of insulin; R51 Headache; R53.81 Other malaise
CPT/HCPCS: 36415; 74177; 80053; 81001; 83605; 83690; 85025; 87086; 87181; 87275; 87276; 96361; 96374; 96375; 99283; 99284; J0131; Q9967; 81003

== ENCOUNTER 2019-05-13 13:46 | Emergency (ER) | payer OTHER ==
[2019-05-13] MEDS ORDERED: HYDROmorphone 1 MG/ML CARPUJECT IVP STA ×2 (14:24→15:15)
[2019-05-13] MEDS ORDERED: SODIUM CHLORIDE 0.9% 1,000 ML IV ONE ×2 (14:24→15:14)
[2019-05-13] MEDS ORDERED: IOVERSOL 320 100 ML VIAL IVP ONE ×2 (14:27→15:24)
--- NOTE | 2019-05-13 14:27 | ED Physician Documentation ---
PD HPI HEADACHE - Stated complaint Stated Complaint: MOODY - Chief complaint Chief Complaint: Neuro - History obtained from History obtained from: Patient, Family - History of Present Illness Timing - onset: How many days ago (3) Timing - onset during: Rest Timing - duration: Days (3) Timing - details: Gradual onset Pain level max: 9 Pain level now: 9 Location: Right Quality: Throbbing, Aching Associated symptoms: Nausea, Vision changes (states R eye vision is blurry). No: Fever, Stiff neck, Vomiting, Weakness Improved by: Rest, Dark room Worsened by: Light, Noise Contributing factors: No: Anticoagulated, Possible carbon monoxide, Hypertension, Recent illness, Trauma Similar symptoms before: Diagnosis (states has migraines, has never seen a neurologist) Recently seen: Not recently seen Review of Systems Ten Systems: 10 systems reviewed and negative Constitutional: denies: Fever, Chills Throat: denies: Sore throat GI: denies: Nausea, Vomiting, Diarrhea Skin: denies: Rash Musculoskeletal: reports: Neck pain (R sided neck pain). 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 - Present Medications Home Medications: Ambulatory Orders Medication Instructions Recorded Confirmed Insulin Glargine [Lantus Solostar] 8 units ABBOJECT DAILY 01/17/18 predniSONE [Deltasone] 10 mg PO [id number] #42 tab 07/27/18 Hydrocodone/Acetaminophen 1 - 2 each PO Q6H PRN #7 tablet 08/26/18 [Hydrocodon-Acetaminophen 5-325] SUMAtriptan [Imitrex] 25 mg PO BID PRN #10 tablet 08/26/18 Cephalexin [Keflex] 500 mg PO Q6H #28 capsule 08/29/18 Hydrocodone/Acetaminophen [[place] 1 each PO Q6H PRN #15 tablet 08/29/18 5-325 Tablet] Naproxen 375 mg PO BID #20 tablet 08/29/18 Ondansetron Odt [Zofran] 4 mg TL Q6H PRN #10 tablet 08/29/18 Sumatriptan [Imitrex] 20 mg NS ONCE PRN #3 spray 05/13/19 - Allergies Allergies/Adverse Reactions: Allergies Allergy/AdvReac Type Severity Reaction Status Date / Time lisinopril Allergy Edema Verified 05/13/19 14:06 - Social History Does the pt smoke?: No Smoking Status: Never smoker Does the pt drink ETOH?: No Does the pt have substance abuse?: No - Immunizations Immunizations are current?: Yes - POLST Patient has POLST: No POLST Status: Full Code PD ED PE NORMAL - Vitals Vital signs reviewed: Yes - General General: Alert and oriented X 3, Other (crying in the room) - HEENT HEENT: PERRL - Neck Neck: Supple, no meningeal sign - Cardiac Cardiac: RRR, Strong equal pulses - Respiratory Respiratory: No respiratory distress, Clear bilaterally - Abdomen Abdomen: Soft, Non tender, Non distended - Back Back: No spinal TTP - Derm Derm: Warm and dry - Extremities Extremities: No edema, No calf tenderness / cord - Neuro Neuro: Alert and oriented X 3, parking enforcer 2-12 intact, No motor deficit, No sensory deficit, Normal speech, Other (TTP R temporal artery and R side of the neck over the carotid. no crepitus. no skin changes. ) Eye Opening: Spontaneous Motor: Obeys Commands Verbal: Oriented GCS Score: 15 - Psych Psych: Normal mood, Normal affect Results - Vitals Vitals: Vital Signs - 24 hr 05/13/19 05/13/19 05/13/19 14:06 15:47 17:00 Temperature 36.5 C 36.6 C Heart Rate 106 H 82 77 Respiratory 14 18 16 Rate Blood Pressure 126/81 H 110/66 117/79 O2 Saturation 98 93 99 Oxygen O2 Source Room air - Labs Labs: Laboratory Tests 05/13/19 05/13/19 05/13/19 14:25 14:25 14:25 WBC 7.9 RBC 5.03 Hgb 14.4 Hct 40.4 MCV 80.3 L MCH 28.6 MCHC 35.6 RDW 14.9 Plt Count 208 MPV 9.5 Neut # (Auto) 5.4 Lymph # (Auto) 2.0 [place] # (Auto) 0.4 Eos # (Auto) 0.0 Baso # (Auto) 0.0 Absolute Nucleated RBC 0.00 Nucleated RBC % 0.0 ESR 29 H Sodium 131 L Potassium 4.3 Chloride 99 L Carbon Dioxide 23 Anion Gap 9.0 BUN 14 Creatinine 0.5 Estimated GFR (MDRD) 135 Glucose 431 H POC Whole Bld Glucose Calcium 9.4 Total Bilirubin 0.8 AST 23 ALT 22 Alkaline Phosphatase 78 C-Reactive Protein < 1.0 Total Protein 8.1 Albumin 4.1 Globulin 4.0 Albumin/Globulin Ratio 1.0 Lipase 34 Serum HCG, Qual 05/13/19 05/13/19 14:25 17:15 WBC RBC Hgb Hct MCV MCH MCHC RDW Plt Count MPV Neut # (Auto) Lymph # (Auto) [place] # (Auto) Eos # (Auto) Baso # (Auto) Absolute Nucleated RBC Nucleated RBC % ESR Sodium Potassium Chloride Carbon Dioxide Anion Gap BUN Creatinine Estimated GFR (MDRD) Glucose POC Whole Bld Glucose 268 H Calcium Total Bilirubin AST ALT Alkaline Phosphatase C-Reactive Protein Total Protein Albumin Globulin Albumin/Globulin Ratio Lipase Serum HCG, Qual NEGATIVE - Rads (name of study) CTA head Radiology: Prelim report reviewed, EMP read contemporaneously, See rad report (No acute abnormality) CTA neck Radiology: Prelim report reviewed, EMP read contemporaneously, See rad report (No acute abnormality) PD MEDICAL DECISION MAKING - ED course Complexity details: reviewed old records, reviewed results, re-evaluated patient, considered differential, d/w patient, d/w family ED course: 44-year-old female with what appears to be her usual migraine headache. Given the radiation down to the neck and the blurring of the vision, CT Angiogram head and neck was performed to exclude any dissection or Aneurysm. Her CRP is negative. Her symptoms resolved with normal migraine therapy. Blood sugar decreased with insulin and IV fluids. Headache resolved. Patient counseled regarding signs and symptoms for which I believe and urgent re-evaluation would be necessary. Patient with good understanding of and agreement to plan and is comfortable going home at this time This document was made in part using voice recognition software. While efforts are made to proofread this document, sound alike and grammatical errors may occur. Departure - Departure Disposition: 01 Home, Self Care Clinical Impression: Hyperglycemia Headache Qualifiers: Headache type: unspecified Headache chronicity pattern: unspecified pattern Intractability: not intractable Qualified Code(s): R51 - Headache Condition: Good Instructions: ED Cephalgia Unspecified Follow-Up: your,doctor in 1 week [Other] Prescriptions: Sumatriptan [Imitrex] 20 mg NS ONCE PRN #3 spray PRN Reason: headache Comments: We will trial you on Imitrex at home. You also need to follow-up with your doctor to have your diabetes medications adjusted, as your high blood sugars will also contribute to headaches. Return if you worsen
[2019-05-13 14:29] LABS: BASOPHILS % (AUTO) 0.4 %; EOSINOPHILS % (AUTO) 0.4 %; HGB - HEMOGLOBIN 14.4 g/dL (12.0-16.0); LYMPHOCYTES % (AUTO) 25.7 %; MEAN CORPUSCULAR HEMOGLOBIN 28.6 pg (27.0-31.0); MEAN CORPUSCULAR HGB CONC 35.6 g/dL (32.0-36.0); MEAN CORPUSCULAR VOLUME 80.3 fL (81.0-99.0); MEAN PLATELET VOLUME 9.5 fL (7.9-10.8); MONOCYTES # (AUTO) 0.4 10^3/uL (0.0-1.0); MONOCYTES % (AUTO) 5.1 %; NEUTROPHILS # (AUTO) 5.4 10^3/uL (1.5-6.6); PLT - PLATELET COUNT 208 10^3/uL (130-450); RED BLOOD COUNT 5.03 10^6/uL (4.20-5.40); RED CELL DISTRIBUTION WIDTH 14.9 % (12.0-15.0); WHITE BLOOD COUNT 7.9 x10^3/uL (4.8-10.8)
[2019-05-13 14:51] LABS: ALBUMIN 4.1 g/dL (3.2-5.5); ALKALINE PHOSPHATASE 78 IU/L (42-121); ALT ALANINE AMINOTRANSFERASE 22 IU/L (10-60); AST ASPARTATE AMINOTRANSFERASE 23 IU/L (10-42); BILIRUBIN,TOTAL 0.8 mg/dL (0.2-1.0); BUN - BLOOD UREA NITROGEN 14 mg/dL (6-20); CALCIUM 9.4 mg/dL (8.5-10.3); CARBON DIOXIDE - CO2 23 mmol/L (21-32); CHLORIDE 99 mmol/L (101-111); CREATININE 0.5 mg/dL (0.4-1.0); GFR - MDRD 135 (>89); GLUCOSE 431 mg/dL (70-100); LIPASE 34 U/L (22-51); SODIUM 131 mmol/L (135-145); TOTAL PROTEIN 8.1 g/dL (6.7-8.2)
[2019-05-13 14:53] LABS: CRP - C-REACTIVE PROTEIN < 1.0 mg/dL (0-1.0)
[2019-05-13 14:55] LABS: HCG,QUALITATIVE BLOOD NEGATIVE
[2019-05-13] MEDS ORDERED: INSULIN REGULAR HUMAN 100 UNIT/1 ML 10 ML MDV IVP STA (15:14)
--- NOTE | 2019-05-13 16:08 | CT Report ---
Reason: R sided headache neck pain Procedure Date: 05/13/2019 Accession Number: [id number] / [id number] Procedure: CT - ANGIO NECK W CPT Code: Final Report FULL RESULT: EXAM: CT ANGIOGRAM HEAD AND NECK. CT SCAN HEAD WITHOUT AND WITH CONTRAST. EXAM DATE: 05/13/2019 03:21 PM. CLINICAL HISTORY: Right sided headache neck pain. COMPARISON: HEAD ANGIO 05/13/2019 3:16 PM. HEAD W/O 08/26/2018 6:24 PM. TECHNIQUE: Routine axial helical CTA imaging was performed from the aortic arch through the [place]. Routine axial CT imaging of the head was performed prior to and following contrast administration. Reconstructions: Routine multiplanar 3D MIP reconstructions. IV contrast: Optiray 320 80 mL. NASCET Criteria are used for stenosis measurements. In accordance with CT protocol optimization, one or more of the following dose reduction techniques were utilized for this exam: automated exposure control, adjustment of mA and/or KV based on patient size, or use of iterative reconstructive technique. FINDINGS: CT SCAN HEAD: Parenchyma: No intraparenchymal hemorrhage. No evidence of mass, midline shift, or CT findings of acute infarction. Holman-white differentiation is distinct.No abnormal intracranial enhancement. Extra-axial Spaces: Normal for age.No subdural or epidural collections identified. Ventricles: Normal in size and position. Sinuses and Orbits: Imaged paranasal sinuses, orbits, and mastoids show no significant abnormality. Bones: No evidence of fracture or calvarial defect. 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 This has normal course from left superior mediastinum to right supraclavicular fossa posterior to the esophagus and trachea. Great vessels off the arch are patent. Right Carotid: The common carotid, internal carotid, and external carotid arteries are widely patent. No dissection, significant atherosclerotic plaque, or calcification identified. Left Carotid: The common carotid, internal carotid, and external carotid arteries are widely patent. No dissection, significant atherosclerotic plaque, or calcification identified. Vertebrals: The right vertebral artery is dominant primarily forming the basilar artery. The vertebrobasilar system shows no stenosis, dissection, aneurysm, or significant atherosclerotic disease. CT ANGIOGRAM INTRACRANIAL CIRCULATION: No large vessel occlusion.No stenoses or aneurysms of the visualized vessels. The right vertebral artery is dominant primarily forming the basilar artery. The right PICA arises from the distal V4 segment. The left vertebral artery is small in caliber especially after the PICA origin. The left PICA arises from the proximal V4 segment. The [place] is intact. The A-COM and bilateral P-COM are patent. 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 This extends from the proximal cavernous ICA to the distal basilar artery. The dural venous sinuses are patent. The right transverse sinus and jugular bulb are dominant. The left transverse and sigmoid sinus are hypoplastic. Arachnoid granulation is seen laterally in the left transverse sinus with associated stenosis. Other: The visualized bones, soft tissues, and lung apices are unremarkable. A 5 mm nodule is seen in the left parotid gland superiorly. This may represent an intraparenchymal lymph node. IMPRESSION: CT SCAN HEAD: 1. Negative CT scan of the head without and with contrast. No acute abnormality. No abnormal enhancement. CT ANGIOGRAM NECK: 1. Normal CTA of the extracranial circulation. No significant atherosclerotic change or stenosis. No dissection. 2. The right vertebral artery is dominant. 3. 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 CT ANGIOGRAM HEAD: 1. Normal CTA of the head. No aneurysm. No significant stenosis. No large vessel occlusion. 2. The right vertebral artery is dominant primarily forming the basilar artery. 3. 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 RADIA
[2019-05-13] MEDS ORDERED: KETOROLAC 60 MG/2 ML VIAL IM STA (16:19)
[2019-05-13] MEDS ORDERED: diphenhydrAMINE INJ 50 MG/ML VIAL IVP STA (16:20)
[2019-05-13] MEDS ORDERED: KETOROLAC 30 MG/ML VIAL IVP STA (16:20)
[2019-05-13] MEDS ORDERED: PROCHLORPERAZINE 10 MG/2 ML VIAL IVP STA (16:20)
[2019-05-13 17:25] VITALS: BP 117/79
== END 2019-05-13 17:33 | disposition home or self-care (01) ==
LOC: ED 13:46
DX: R51 Headache (principal); M54.2 Cervicalgia; H53.8 Other visual disturbances; E11.65 Type 2 diabetes mellitus with hyperglycemia; Z79.4 Long term (current) use of insulin
CPT/HCPCS: 36415; 70496; 70498; 80053; 83690; 84703; 85025; 85651; 86140; 96361; 96374; 96375; 96376; 99285; J1170; J1200; J1815; Q9967

== ENCOUNTER 2019-08-20 12:32 | Emergency (ER) | payer OTHER ==
[2019-08-20] MEDS ORDERED: KETOROLAC 30 MG/ML VIAL IVP STA (12:50)
[2019-08-20] MEDS ORDERED: diphenhydrAMINE INJ 50 MG/ML VIAL IVP STA (12:51)
[2019-08-20] MEDS ORDERED: PROCHLORPERAZINE 10 MG/2 ML VIAL IVP STA (12:51)
[2019-08-20] MEDS ORDERED: DEXAMETHASONE 10 MG/ML VIAL IVP STA (12:51)
--- NOTE | 2019-08-20 12:55 | ED Physician Documentation ---
History of Present Illness - Stated complaint Stated Complaint: LOW BLOOD SUGAR/MOODY - Chief complaint Chief Complaint: General - History obtained from History obtained from: Patient (44-year-old woman with diabetes presents with headache. She has frequent migraines and this 1 somewhat atypical for her. It was gradual in onset and left-sided. It does not radiate down the neck as much as her usual migraines. She is light sensitive with it. She also noticed her blood sugars were lower than normal for her today. Down into the 88 range. Last increase in her Lantus was from 24 units to 30 units and that was about a month ago. No syncope or dizziness.) Review of Systems Constitutional: reports: Chills. 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: Tubal ligation - Present Medications Home Medications: Ambulatory Orders Medication Instructions Recorded Confirmed Insulin Glargine [Lantus Solostar] 8 units ABBOJECT DAILY 01/17/18 predniSONE [Deltasone] 10 mg PO [id number] #42 tab 07/27/18 Hydrocodone/Acetaminophen 1 - 2 each PO Q6H PRN #7 tablet 08/26/18 [Hydrocodon-Acetaminophen 5-325] SUMAtriptan [Imitrex] 25 mg PO BID PRN #10 tablet 08/26/18 Cephalexin [Keflex] 500 mg PO Q6H #28 capsule 08/29/18 Hydrocodone/Acetaminophen [[place] 1 each PO Q6H PRN #15 tablet 08/29/18 5-325 Tablet] Naproxen 375 mg PO BID #20 tablet 08/29/18 Ondansetron Odt [Zofran] 4 mg TL Q6H PRN #10 tablet 08/29/18 Sumatriptan [Imitrex] 20 mg NS ONCE PRN #3 spray 05/13/19 - Allergies Allergies/Adverse Reactions: Allergies Allergy/AdvReac Type Severity Reaction Status Date / Time lisinopril Allergy Edema Verified 08/20/19 12:39 - Social History Does the pt smoke?: No Smoking Status: Never smoker Does the pt drink ETOH?: No Does the pt have substance abuse?: No - Immunizations Immunizations are current?: Yes - POLST Patient has POLST: No POLST Status: Full Code PD ED PE NORMAL - Vitals Vital signs reviewed: Yes - General General: Alert and oriented X 3, No acute distress - HEENT HEENT: PERRL, EOMI, Pharynx benign - Neck Neck: Supple, no meningeal sign, No bony TTP - Abdomen Abdomen: Non tender - Extremities Extremities: No edema, No calf tenderness / cord - Neuro Neuro: Alert and oriented X 3, language assistant 2-12 intact, No motor deficit, No sensory deficit, Normal speech - Psych Psych: Normal mood, Normal affect Results - Vitals Vitals: Vital Signs - 24 hr 08/20/19 08/20/19 12:35 14:39 Temperature 36.1 C L Heart Rate 92 83 Respiratory 18 18 Rate Blood Pressure 120/75 111/70 O2 Saturation 100 98 Oxygen O2 Source Room air - Labs Labs: Laboratory Tests 08/20/19 08/20/19 08/20/19 12:46 13:12 13:12 WBC 5.3 RBC 4.36 Hgb 12.5 Hct 36.0 L MCV 82.6 MCH 28.7 MCHC 34.7 RDW 14.8 Plt Count 169 MPV 10.4 Neut # (Auto) 3.5 Lymph # (Auto) 1.5 [place] # (Auto) 0.2 Eos # (Auto) 0.0 Baso # (Auto) 0.0 Absolute Nucleated RBC 0.00 Nucleated RBC % 0.0 Sodium 138 Potassium 3.6 Chloride 104 Carbon Dioxide 26 Anion Gap 8.0 BUN 11 Creatinine 0.6 Estimated GFR (MDRD) 110 Glucose 103 H POC Whole Bld Glucose 91 Calcium 8.9 Total Bilirubin 0.8 AST 23 ALT 17 Alkaline Phosphatase 81 Total Protein 7.9 Albumin 4.1 Globulin 3.8 Albumin/Globulin Ratio 1.1 Lipase 43 PD MEDICAL DECISION MAKING - ED course ED course: 44-year-old woman presents with a gradual onset headache without risk factors or red flags for meningitis or subarachnoid hemorrhage. Note made that she had a negative CT angiography procedure done a few months ago. Also her blood sugars are lower than normal for her, but still not too concerning. We will give her small dose of dexamethasone along with other migraine medications which should help with that. Discussed with her that she may need to decrease her dose of Lantus a little bit. After multiple attempts we were unable to place IV access on this woman, labs were sent though. Meds were changed to intramuscular as opposed to IV. She was feeling much better after divided dose of medication. Departure - Departure Disposition: 01 Home, Self Care Clinical Impression: Diabetes Qualifiers: Diabetes mellitus retirement insulin use: with terminal carman use Headache Qualifiers: Headache type: tension-type Headache chronicity pattern: acute headache Intractability: not intractable Qualified Code(s): G44.209 - Tension-type headache, unspecified, not intractable Condition: Good Record reviewed to determine appropriate education?: Yes Instructions: ED Headache Migraine Comments: Make sure to check your blood sugar every few hours for the rest of the day, I suspect her blood sugars will go up since we gave you some steroids here. Return for new or worsening symptoms. Follow-up with your doctor, next available appointment.
[2019-08-20 13:39] LABS: BASOPHILS % (AUTO) 0.2 %; EOSINOPHILS % (AUTO) 0.8 %; HGB - HEMOGLOBIN 12.5 g/dL (12.0-16.0); LYMPHOCYTES # (AUTO) 1.5 10^3/uL (1.5-3.5); LYMPHOCYTES % (AUTO) 27.5 %; MEAN CORPUSCULAR HEMOGLOBIN 28.7 pg (27.0-31.0); MEAN CORPUSCULAR HGB CONC 34.7 g/dL (32.0-36.0); MEAN CORPUSCULAR VOLUME 82.6 fL (81.0-99.0); MEAN PLATELET VOLUME 10.4 fL (7.9-10.8); MONOCYTES # (AUTO) 0.2 10^3/uL (0.0-1.0); MONOCYTES % (AUTO) 4.6 %; NEUTROPHILS # (AUTO) 3.5 10^3/uL (1.5-6.6); NEUTROPHILS % (AUTO) 66.7 %; PLT - PLATELET COUNT 169 10^3/uL (130-450); RED BLOOD COUNT 4.36 10^6/uL (4.20-5.40); RED CELL DISTRIBUTION WIDTH 14.8 % (12.0-15.0); WHITE BLOOD COUNT 5.3 x10^3/uL (4.8-10.8)
[2019-08-20] MEDS ORDERED: DEXAMETHASONE 10 MG/ML VIAL PO STA (13:49)
[2019-08-20] MEDS ORDERED: CHERRY SYRUP 10 ML UDC PO ONE (13:49)
[2019-08-20] MEDS ORDERED: KETOROLAC 60 MG/2 ML VIAL IM STA (13:49)
[2019-08-20] MEDS ORDERED: HYDROmorphone 1 MG/ML CARPUJECT IM STA ×2 (13:49→14:38)
[2019-08-20] MEDS ORDERED: PROMETHAZINE 25 MG/1 ML VIAL IM STA (13:49)
[2019-08-20 13:52] LABS: ALBUMIN 4.1 g/dL (3.2-5.5); ALBUMIN/GLOBULIN RATIO 1.1 (1.0-2.2); BILIRUBIN,TOTAL 0.8 mg/dL (0.2-1.0); CALCIUM 8.9 mg/dL (8.5-10.3); CREATININE 0.6 mg/dL (0.4-1.0); TOTAL PROTEIN 7.9 g/dL (6.7-8.2)
[2019-08-20] MEDS ORDERED: SUMAtriptan 6 MG/0.5 ML VIAL SUBQ STA (14:38)
[2019-08-20 15:50] VITALS: BP 125/78
== END 2019-08-20 15:48 | disposition home or self-care (01) ==
LOC: ED 12:32
DX: G44.209 Tension-type headache, unspecified, not intractable (principal); E11.9 Type 2 diabetes mellitus without complications; Z79.4 Long term (current) use of insulin
CPT/HCPCS: 36415; 80053; 83690; 85025; 96372; 99283; 99284; A9270; J1170; J1200

== ENCOUNTER 2019-11-12 08:00 | Outpatient (CLI) | payer OTHER ==
[2019-11-12 19:17] LABS: % IRON SATURATION 16 % (20-50); IRON 53 ug/dL (28-170); TOTAL IRON BINDING CAPACITY 339 ug/dL (250-450); TRANSFERRIN 242 mg/dL (192-382)
[2019-11-12 19:40] LABS: FOLLICLE STIMULATING HORMONE 31.57 mIU/mL
[2019-11-12 19:41] LABS: LUTEINIZING HORMONE 19.63 mIU/mL
== END 2019-11-12 23:59 | disposition home or self-care (01) ==
LOC: LAB.WCP 08:00
PROVIDERS: ATTEND Obstetrics & Gynecology
DX: N92.0 Excessive and frequent menstruation with regular cycle (principal)
CPT/HCPCS: 36415; 82670; 83001; 83002; 83540; 84466

== ENCOUNTER 2020-01-08 06:59 | Outpatient (CLI) | payer OTHER ==
[2020-01-08 07:47] LABS: BASOPHILS % (AUTO) 0.4 %; EOSINOPHILS # (AUTO) 0.1 10^3/uL (0.0-0.7); EOSINOPHILS % (AUTO) 2.1 %; HGB - HEMOGLOBIN 12.4 g/dL (12.0-16.0); LYMPHOCYTES # (AUTO) 1.5 10^3/uL (1.5-3.5); LYMPHOCYTES % (AUTO) 31.4 %; MEAN CORPUSCULAR HEMOGLOBIN 29.2 pg (27.0-31.0); MEAN CORPUSCULAR VOLUME 83.3 fL (81.0-99.0); MEAN PLATELET VOLUME 9.4 fL (7.9-10.8); MONOCYTES # (AUTO) 0.3 10^3/uL (0.0-1.0); MONOCYTES % (AUTO) 6.5 %; NEUTROPHILS # (AUTO) 2.8 10^3/uL (1.5-6.6); NEUTROPHILS % (AUTO) 59.4 %; PLT - PLATELET COUNT 183 10^3/uL (130-450); RED BLOOD COUNT 4.25 10^6/uL (4.20-5.40); RED CELL DISTRIBUTION WIDTH 13.7 % (12.0-15.0); WHITE BLOOD COUNT 4.8 x10^3/uL (4.8-10.8)
[2020-01-08 08:03] LABS: ALBUMIN 4.1 g/dL (3.2-5.5); ALBUMIN/GLOBULIN RATIO 1.3 (1.0-2.2); CALCIUM 9.1 mg/dL (8.5-10.3); CREATININE 0.7 mg/dL (0.4-1.0); TOTAL PROTEIN 7.3 g/dL (6.7-8.2)
== END 2020-01-08 07:00 | disposition home or self-care (01) ==
LOC: LAB 06:59
PROVIDERS: ATTEND Obstetrics & Gynecology
DX: Z01.818 Encounter for other preprocedural examination (principal); N94.6 Dysmenorrhea, unspecified; N92.0 Excessive and frequent menstruation with regular cycle; Z20.828 Contact with and (suspected) exposure to other viral communicable diseases
CPT/HCPCS: 36415; 80053; 82150; 85025

== ENCOUNTER 2020-01-14 08:13 | Day surgery (SDC) | payer OTHER ==
[2020-01-14] MEDS ORDERED: LIDOCAINE 1%-EPI 1:100000 20 ML MDV ONE ×2 (08:19→14:21)
[2020-01-14] MEDS ORDERED: PHENAZOPYRIDINE 100 MG TABLET PO ONE (08:31)
[2020-01-14] MEDS ORDERED: CELECOXIB 100 MG CAPSULE PO ONE (08:31)
[2020-01-14] MEDS ORDERED: ACETAMINOPHEN 1,000 MG/100 ML 100 ML IV ONE ×2 (08:31→12:07)
[2020-01-14] MEDS ORDERED: GABAPENTIN 400 MG CAPSULE ONE (08:32)
[2020-01-14 08:44] LABS: HCG UR QUAL NEGATIVE
[2020-01-14] MEDS ORDERED: LACTATED RINGERS 1,000 ML IV ONE ×4 (09:10→16:45)
--- NOTE | 2020-01-14 10:46 | ANESTHESIA ---
Pre-Anesthesia VS, & Labs - Diagnosis dysfunctional uterine bleeding - Procedure laparoscopic vaginal hysterectomy Vital Signs: Temp Pulse Resp BP Pulse Ox 36 C L 88 16 123/87 H 100 01/14/20 08:41 01/14/20 08:41 01/14/20 08:41 01/14/20 08:41 01/14/20 08:41 Height: 5 ft 5 in Weight (kg): 87 kg Body Mass Index: 31.8 BMI Classification: Obese - NPO >8 hours - Is Patient ?: No - Lab Results Current Lab Results: Laboratory Tests 01/14/20 09:30: Blood Type B POSITIVE, Antibody Screen NEGATIVE 01/14/20 09:26: Blood Type Recheck B POSITIVE 01/14/20 09:01: POC Whole Bld Glucose 86 Home Medications and Allergies Home Medications: Ambulatory Orders Exenatide Microspheres [Bydureon Pen] 2 mg SQ OAW 01/06/20 Ibuprofen [Motrin] 600 mg PO DAILY 01/14/20 Insulin Glargine [Lantus Solostar] 12 units ABBOJECT DAILY 01/17/18 Exenatide Microspheres [Bydureon Pen] 2 mg SQ OAW 01/06/20 Ibuprofen [Motrin] 600 mg PO DAILY 01/14/20 Allergies/Adverse Reactions: Allergies Allergy/AdvReac Type Severity Reaction Status Date / Time lisinopril Allergy Edema Verified 08/20/19 12:39 Anes History & Medical History - Anesthetic History Anesthesia Complications: reports: No previous complications - Medical History Cardiovascular: reports: None Pulmonary: reports: None Gastrointestinal: reports: None Urinary: reports: None Neuro: reports: Migraines Musculoskeletal: reports: None Endocrine/Autoimmune: reports: Type 2 diabetes Skin: reports: None Smoking Status: Never smoker - Surgical History General: Cholecystectomy Gynecologic: Tubal ligation Exam General: Alert Dental: WNL Mouth Opening: Greater than 4 Fingerbreadths Neck Mobility: Normal Mallampati classification: II Thyromental Distance: greater than 6 cm Respiratory: Lungs clear Cardiovascular: Regular rate, Normal S1, Normal S2 Plan Anesthesia Type: General Consent for Procedure(s) Verified and Reviewed: Yes Code Status: Attempt Resuscitation ASA classification: 2-Mild systemic disease Is this case an emergency?: No
[2020-01-14] MEDS ORDERED: CEFAZOLIN SODIUM IN 0.9 % NACL 2 GM/100 ML BAG IV ONE (11:51)
[2020-01-14] MEDS ORDERED: fentaNYL 100 MCG/2 ML VIAL IVP ONE (12:07)
[2020-01-14] MEDS ORDERED: DEXAMETHASONE 4 MG/ML VIAL IVP ONE (12:07)
[2020-01-14] MEDS ORDERED: NEOSTIGMINE 1 MG/1 ML 10 ML MDV IVP ONE (12:07)
[2020-01-14] MEDS ORDERED: PHENYLEPHRINE 10 MG/ML VIAL IV ONE (12:07)
[2020-01-14] MEDS ORDERED: PROPOFOL 200 MG/20 ML VIAL IVP ONE (12:07)
[2020-01-14] MEDS ORDERED: LIDOCAINE-MPF 2% 5 ML VIAL IM ONE (12:07)
[2020-01-14] MEDS ORDERED: ONDANSETRON 4 MG/2 ML VIAL IVP ONE (12:07)
[2020-01-14] MEDS ORDERED: GLYCOPYRROLATE 1 MG/5 ML VIAL IVP ONE (12:07)
[2020-01-14] MEDS ORDERED: TRANEXAMIC ACID 1,000 MG/10 ML VIAL IV ONE (12:07)
[2020-01-14] MEDS ORDERED: MIDAZOLAM 2 MG/2 ML VIAL IVP ONE (12:07)
[2020-01-14] MEDS ORDERED: ROCURONIUM 50 MG/5 ML VIAL IVP ONE (12:07)
[2020-01-14] MEDS ORDERED: BUPIVACAINE 0.25%-EPI 1:200000 PF 30 ML VIAL ONE (12:53)
[2020-01-14] MEDS ORDERED: LIDOCAINE 1%-EPI 1:100000 20 ML MDV SUBQ ONE ×2 (12:54)
[2020-01-14] MEDS ORDERED: BUPIVACAINE 0.25% PF 30 ML VIAL SUBQ ONE (14:14)
[2020-01-14] MEDS ORDERED: ONDANSETRON 4 MG/2 ML VIAL IVP PRN ×4 (14:54→15:39)
[2020-01-14] MEDS ORDERED: oxyCODONE 5 MG TABLET PO PRN ×2 (14:55→15:26)
[2020-01-14] MEDS ORDERED: HYDROmorphone 0.5 MG/0.5 ML SYRINGE IVP PRN ×2 (14:56→14:57)
[2020-01-14] MEDS ORDERED: MORPHINE 2 MG/ML CARPUJECT IVP PRN (14:57)
[2020-01-14] MEDS ORDERED: NALOXONE 0.4 MG/ML VIAL IVP PRN (14:57)
[2020-01-14] MEDS ORDERED: fentaNYL 100 MCG/2 ML VIAL IVP PRN (14:57)
[2020-01-14] MEDS ORDERED: ATROPINE ABBOJECT 1 MG/10 ML SYRINGE IVP PRN (14:57)
[2020-01-14] MEDS ORDERED: LACTATED RINGERS 1,000 ML IV SCH (15:00)
[2020-01-14] MEDS ORDERED: HYDROmorphone 1 MG/ML CARPUJECT ONE (15:01)
[2020-01-14] MEDS ORDERED: KETOROLAC 15 MG/ML VIAL ONE (16:20)
[2020-01-14] MEDS ORDERED: KETOROLAC 30 MG/ML VIAL IVP STA (16:23)
--- NOTE | 2020-01-14 17:06 | ANESTHESIA POST OP EVALUATION ---
Anesthesia Post Eval - Post Anesthesia Eval Vitals: Last Vital Signs Temp 36.6 C 01/14/20 16:05 Pulse 83 01/14/20 16:10 Resp 10 L 01/14/20 16:10 BP 106/65 01/14/20 16:10 Pulse Ox 94 01/14/20 16:10 CV Function Including HR & BP: positive: Stable Pain Control: positive: Satisfactory (Required additional analgesia in PACU to good effect.) Nausea & Vomiting: positive: Negative Mental Status: positive: Patient Participates (Drowsy after additional analgesia.) Respiratory Status: Airway Patent Hydration Status: Satisfactory Anesthesia Complications: positive: None
--- NOTE | 2020-01-14 17:46 | CONSULTATION NOTE ---
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 The Timber Inspector requests the Hospitalist service to help assist with insulin dosing and diabetic management. PAST MEDICAL HISTORY: Diabetes on insulin, dysfunctional uterine bleeding, status post laparoscopic vaginal hysterectomy today, history of pancreatitis and fatty liver. ALLERGIES: LISINOPRIL, WHICH CAUSED "EDEMA." I reviewed past records and in fact this was ANGIOEDEMA to Lisinopril dosing. MEDICATIONS 1. Lantus SoloSTAR insulin 12 units every morning. 2. Bydureon microspheres 2 mg subcutaneously once a week. 3. Motrin 600 mg daily p.r.n. FAMILY HISTORY: Both her mother and father had Type 2 Diabetes. PAST SURGICAL HISTORY: Cholecystectomy and tubal ligation. SOCIAL HISTORY: She is nonsmoker who never smoked, drinks no alcohol; there is no substance abuse history. REVIEW OF SYSTEMS: A comprehensive review of systems was performed and is negative except as listed here. PHYSICAL EXAM GENERAL: White female, who is in no distress but is postop and slightly lethargic. VITAL SIGNS: Blood pressure 105/54, heart rate 82 and regular, afebrile, room air saturation 95%. HEENT: Unremarkable. NECK: Shows no JVD or carotid bruits. CHEST: Clear. HEART: Normal heart sounds without murmurs. ABDOMEN: Soft, nontender. EXTREMITIES: No clubbing, cyanosis or edema. NEUROLOGIC: She is somnolent in a postoperative state. LABORATORY: Labs were done several days ago for preop eval and showed sodium 133, otherwise normal electrolytes and BUN and creatinine. Normal liver tests and amylase. Her preop CBC was also entirely unremarkable and today, a urine hCG was negative. She had coronavirus swab testing done 3 days ago, which was negative. No imaging. No EKG. IMPRESSION/DIAGNOSES 1. Diabetes mellitus, insulin-dependent. 2. Dysfunctional uterine bleeding 3. S/P vag hysterhysterectomy today. 4. Allergic angioedema to Lisonopril, not "edema" from Lisinopril. RECOMMENDATIONS: Start a clear liquid diet tonight, sin ce she awake post-op vag hyster, and start a sliding-scale insulin order and glucose fingerstick checks to be covered with the sliding-scale insulin. Resume her longer-acting insulin tomorrow morning; however, at a lower dose. [place] a hypoglycemia protocol to manage if she should get low sugars. Check A1c level in the morning to help guide overall management of her diabetes. I will update the true allergy of angioedema caused by Lisinopril, in her record. CODE STATUS: FULL CODE. Thank you for allowing us to participate in the care of this patient. cc: Vidal Warren MD TD: 01/14/2020 17:23 MTDD
--- NOTE | 2020-01-14 18:59 | PROCEDURE REPORT ---
DATE OF SERVICE: 01/14/2020 Physician: Vidal Warren MD PREOPERATIVE DIAGNOSES: Severe dysmenorrhea, menorrhagia. POSTOPERATIVE DIAGNOSIS: Severe dysmenorrhea, menorrhagia. PROCEDURE: Total laparoscopic hysterectomy with cystoscopy. SURGEON: Vidal Warren MD FURNITURE AND BEDDING INSPECTOR: Jania Reilly MD ANESTHESIA PROVIDER: Tiffany Rios CRNA. ANESTHESIA: General via endotracheal tube. ESTIMATED BLOOD LOSS: 100 mL. IV FLUIDS: 1900 mL URINE OUTPUT: 350 mL FINDINGS: Upon entering the abdominal cavity, the uterus appeared somewhat globular in fashion. There was evidence of previous what appeared to be bilateral tubal ligation with partial salpingectomy. The ovaries appeared to be somewhat small in size. The ureters were both visualized. PROCEDURE: Following adequate endotracheal anesthesia, patient placed in dorsal lithotomy position in Esteban stirrups. At this point, pelvic examination under anesthesia was performed. The uterus was palpated to be midposition; however, the size and orientation could not be ascertained secondary to abdominal wall thickness. At this point, she was prepped and draped in the usual fashion. A timeout was performed, at which time concerns were addressed. A speculum was then placed in the vagina. The cervix was visualized, grasped with a single- tooth tenaculum. Bilateral uterosacral injections with 0.25% Marcaine with epinephrine was utilized. This was 10 mL in each ligament. At this point, the cervix was dilated to 8 mm and then a tape coater uterine manipulator was placed in the cervix 4 cm in size. Habilitation Specialist was used. Care was taken to assure that the ring went all the way into the fornices. Balloons were then insufflated. The cryptologic technician operator/analyst's gloves were changed and following local anesthesia with 0.25% Marcaine, the subumbilical area had an incision with a #15 blade. A 5 mm trocar and sheath was introduced on the first pass. Two additional ports were placed, both in the left and right lower quadrants. These were both done following a local anesthetic with 0.25% Marcaine, as well as skin incision. The entire pelvis was visualized. Photographs were taken. The right fallopian tube was grasped, and then the mesosalpinx was cauterized and transected with the LigaSure. This separate piece of fallopian tube was sent for pathologic evaluation. At this point, the mesosalpinx and the proximal portion of the tube was cauterized and transected. Following this, the utero-ovarian ligament was cauterized and transected. The round ligament was cauterized and transected with the LigaSure. The anterior leaf of the broad ligament was opened, and then this was cauterized and transected and the bladder flap was developed. The posterior leaf was also cauterized and transected. The uterine vessels were noted to be at the level of the internal os of the cervix. These were cauterized, but not transected at this time. Attention was then turned to the left hand side. The distal fallopian tube was cauterized and transected. The mesosalpinx and the proximal portion of fallopian tube was cauterized and transected with the LigaSure. The uteroovarian ligament was cauterized and transected, as well as the round ligament. The anterior leaf of the broad ligament was opened, and this was carried down. The bladder flap was developed from the right hand side. The posterior leaf of the broad ligament was followed all the way down to the uterine vessels, which were visualized, doubly cauterized and transected with the LigaSure. Then, utilizing the LigaSure, the transverse cervical ligament was cauterized and transected. Care was taken to stay as close to the cervix as possible. A bladder flap was developed with the ring from the tape coater easily palpated through the anterior vagina. At this point in the right hand side, the uterine vessels were cauterized, transected, and then the remainder of the transverse cervical also cauterized and transected. A Harmonic scalpel was then used to circumscribe the cervix at the level of the fornix anterior and posteriorly. The uterus was then brought out of the vaginal canal and an Asepto syringe was placed. The right lower quadrant incision was extended and then an 11 mm port was placed. The Endo Stitch of 0 Vicryl was utilized to close the apex of the vagina. This was V-Loc suture. There was evidence of good hemostasis and no bleeding at this time. At this time, the trocar was removed from the right lower quadrant and then a Riky- Reece was placed. The suture of 0 Vicryl was placed, but upon placing the 2nd puncture, there was evidence of bleeding, which appeared to be arterial in nature. This suture was tied down tight and then tension was placed. An additional suture was then also placed with the suture pass. At this time, after careful inspection and irrigation, there was no evidence of any bleeding from this site. The remainder of the pelvis was inspected and noted to be dry. The CO2 was allowed to escape, and the trocars were removed. All 3 incisions were closed utilizing 4-0 Monocryl. A cystoscopy was performed following removal of the Asepto syringe and the ureters showed evidence of good efflux of Pyridium-stained urine from both ureteral orifices. There is no evidence of any sutures or defects in the bladder mucosa. The patient tolerated the procedure well and was taken to recovery in stable condition. Sponge and needle counts were correct. Throughout this entire surgery, Dr. Reilly was both instrumental in placing a suture utilizing the Endo Stitch, as well as the LigaSure. Her help was indispensable. TD: 01/14/2020 14:52 PRAKASH
[2020-01-14] MEDS ORDERED: INSULIN GLARGINE 300 UNIT/3 ML PEN SUBQ SCH (21:00)
[2020-01-14] MEDS: INSULIN ASPART 300 UNIT/3 ML PEN SUBQ SCH (21:52)
[2020-01-14] MEDS: oxyCODONE 5 MG TABLET PO PRN (22:06)
[2020-01-15] MEDS: oxyCODONE 5 MG TABLET PO PRN (03:06)
[2020-01-15 07:58] VITALS: BP 104/66
[2020-01-15] MEDS ORDERED: ACETAMINOPHEN 325 MG TABLET PO PRN (08:17)
--- NOTE | 2020-01-15 08:31 | PROVIDER PROGRESS NOTE ---
Subjective - General Procedure Date: 01/14/20 Post Op Days: 1 Procedure Performed: TLH with Cysto - Review of Systems Wound/Incisions: positive: Healing well, No drainage General: positive: No symptoms (C/O Headach and right shoulder pain. abdomin minimal Pain Pt has moved her bowels.) Cardiovascular: positive: No symptoms, Chest pain Gastrointestinal: negative: Flatus (Passed stool) Musculoskeletal: positive: Shoulder pain (right) Objective - Patient Data Reviewed Vital Signs: Yes Vital Signs: Vital Signs x48h Temp Pulse Resp BP Pulse Ox 01/15/20 07:58 36.8 C 80 18 104/66 98 01/15/20 03:46 36.4 C L 82 16 122/65 98 Weight: Weight 01/13/20 01/14/20 01/15/20 23:59 23:59 23:59 Weight (kg) 87 kg Intake & Output: Intake and Output Totals x24h 01/13/20 01/14/20 01/15/20 23:59 23:59 23:59 Intake Total 1820.000 Output Total 1800 900 Balance 20.000 -900 - Lab Results Other Lab Results: Lab Results x24hrs 01/15/20 01/14/20 01/14/20 Range/Units 07:45 21:25 16:55 POC Whole Bld Glucose 165 H 187 H 159 H (70 - 100) mg/dL Ur Specific [place] (1.002-1.030) Urine HCG, Qual Blood Type Blood Type Recheck Antibody Screen 01/14/20 01/14/20 01/14/20 Range/Units 15:48 09:30 09:26 POC Whole Bld Glucose 167 H (70 - 100) mg/dL Ur Specific [place] (1.002-1.030) Urine HCG, Qual Blood Type B POSITIVE Blood Type Recheck B POSITIVE Antibody Screen NEGATIVE 01/14/20 01/14/20 Range/Units 09:01 08:37 POC Whole Bld Glucose 86 (70 - 100) mg/dL Ur Specific [place] 1.015 (1.002-1.030) Urine HCG, Qual NEGATIVE Blood Type Blood Type Recheck Antibody Screen - Current Medications Current Medications: Current Medications Generic Name Dose Route Start Last Admin Trade Name Freq PRN Reason Stop Dose Admin Hydromorphone HCl 0.5 mg 01/14/20 14:56 01/14/20 18:00 Dilaudid Inj Syringe IVP 0.5 mg Q30M PRN Administration Breakthrough Pain Insulin Aspart 1 - 5 unit 01/14/20 21:00 01/14/20 21:52 Novolog SUBQ 2 unit 0800,1200,1700,2100 ZARINA Administration Protocol Oxycodone HCl 5 mg 01/14/20 15:39 01/15/20 03:06 Roxicodone PO 5 mg Q4HR PRN Administration PAIN - Physical Exam Wound/Incisions: positive: No drainage. negative: Erythema General Appearance: positive: Alert, Mild distress Respiratory: positive: Chest non-tender, No respiratory distress, Breath sounds nml Cardiovascular: positive: Regular rate & rhythm, No murmur, No gallop Abdomen: positive: Nml bowel sounds, No distention, Tenderness (Minl tenderness) Back: negative: CVA tenderness (R), CVA tenderness (L) Skin: positive: Color nml, No rash, Warm Extremities: negative: Calf tenderness, Shirin's sign/cords Impression/Plan - Problem List Problem List: Progressing. Need CBC normotensive, not tachycardic, good urine out put. Nausia with narcotics. Send home. Discharge meds Oxycodone MOtrin Colace RTC 2 weeks
[2020-01-15] MEDS: INSULIN ASPART 300 UNIT/3 ML PEN SUBQ SCH (08:42)
--- NOTE | 2020-01-15 08:52 | PROVIDER PROGRESS NOTE ---
Assessment/Plan - Problem List (1) IDDM (insulin dependent diabetes mellitus) Assessment/Plan: She was put on 2/3 of her usual dose of long-acting Insulin and a Low-dose sliding scale Insulin for coverage of high glu levels from POC fingerstick glu checks. She got clear liquids last night and is to begin a solid Diabetic diet this morning. Her glu checks are running in a good range (130-170's). She refused morning blood draw of labs, to assess the A1c and her fluid status. For discharge, she can return to her usual meds and management, if she is eating adequately, so that she does not get hypoglycemic. Continue with present plan. I will sign-off the case. Thank you for allowing me to participate in the care of this patient. - Current Meds Current Meds: Current Medications Generic Name Dose Route Start Last Admin Trade Name Freq PRN Reason Stop Dose Admin Acetaminophen 650 mg 01/15/20 08:17 01/15/20 08:40 Tylenol PO 650 mg Q4HR PRN Administration Pain or Fever > 38C (100.4F) Hydromorphone HCl 0.5 mg 01/14/20 14:56 01/14/20 18:00 Dilaudid Inj Syringe IVP 0.5 mg Q30M PRN Administration Breakthrough Pain Insulin Aspart 1 - 5 unit 01/14/20 21:00 01/15/20 08:42 Novolog SUBQ 1 unit 0800,1200,1700,2100 ZARINA Administration Protocol Oxycodone HCl 5 mg 01/14/20 15:39 01/15/20 03:06 Roxicodone PO 5 mg Q4HR PRN Administration PAIN - Additional Planning My Orders: My Active Orders 01/14/20 17:10 Initiate Hypoglycemia Protocol [RC] .protocol 01/14/20 21:00 Insulin Aspart [NovoLOG] 1 - 5 unit SUBQ 0800,1200,1700,2100 01/15/20 05:00 BMP - BASIC METABOLIC PANEL [CHEM] DAILYLAB HEMOGLOBIN A1c% [CHEM] DAILYLAB MAGNESIUM [CHEM] DAILYLAB 01/15/20 09:00 Insulin Glargine [Lantus Solostar] 8 unit SUBQ DAILY Subjective - Subjective Patient Reports: Resting Comfortably Objective Vital Signs: Vital Signs - 24 hr 01/14/20 01/14/20 01/14/20 14:48 14:50 14:55 Temperature 37.7 C H 37 C Heart Rate 100 91 89 Respiratory 16 19 15 Rate Blood Pressure 124/70 110/64 105/62 O2 Saturation 98 97 97 01/14/20 01/14/20 01/14/20 15:00 15:05 15:10 Temperature Heart Rate 87 85 84 Respiratory 17 18 10 L Rate Blood Pressure 96/56 L 92/52 L 90/52 L O2 Saturation 94 96 97 01/14/20 01/14/20 01/14/20 15:15 15:20 15:30 Temperature 36.4 C L Heart Rate 81 81 80 Respiratory 11 L 8 L 9 L Rate Blood Pressure 94/57 L 89/56 L 84/45 L O2 Saturation 98 97 98 01/14/20 01/14/20 01/14/20 15:35 15:40 15:45 Temperature 36.1 C L Heart Rate 88 82 87 Respiratory 16 7 L 15 Rate Blood Pressure 86/53 L 90/50 L 89/57 L O2 Saturation 99 98 98 01/14/20 01/14/20 01/14/20 15:50 15:55 16:00 Temperature Heart Rate 78 81 82 Respiratory 10 L 12 14 Rate Blood Pressure 89/59 L 90/56 L 88/56 L O2 Saturation 99 100 98 01/14/20 01/14/20 01/14/20 16:05 16:10 16:45 Temperature 36.6 C 36.4 C L Heart Rate 93 83 82 Respiratory 16 10 L 16 Rate Blood Pressure 86/59 L 106/65 105/54 L O2 Saturation 98 94 95 01/14/20 01/14/20 01/14/20 17:00 17:15 17:30 Temperature 36.4 C L 36.4 C L 36.0 C L Heart Rate 84 84 80 Respiratory 16 16 16 Rate Blood Pressure 98/56 L 108/63 108/64 O2 Saturation 93 100 100 01/14/20 01/14/20 01/14/20 18:00 18:30 19:30 Temperature 36.2 C L 36.3 C L 36.3 C L Heart Rate 77 75 75 Respiratory 16 16 16 Rate Blood Pressure 113/64 127/70 116/65 O2 Saturation 100 100 97 01/14/20 01/14/20 01/14/20 20:30 21:30 22:30 Temperature 36.3 C L 36.5 C 36.5 C Heart Rate 77 74 81 Respiratory 16 16 16 Rate Blood Pressure 112/66 125/67 131/82 H O2 Saturation 100 98 92 01/14/20 01/15/20 01/15/20 23:52 03:46 07:58 Temperature 36.9 C 36.4 C L 36.8 C Heart Rate 76 82 80 Respiratory 16 16 18 Rate Blood Pressure 122/65 122/65 104/66 O2 Saturation 97 98 98 Oxygen O2 Source Room air I&O (Last 24 Hrs): Intake and Output Totals x24h 01/13/20 01/14/20 01/15/20 23:59 23:59 23:59 Intake Total 1820.000 Output Total 1800 900 Balance 20.000 -900 HEENT: Mucous membr. moist/pink Neuro: Non Focal Respiratory: No respiratory distress - Results Results: Laboratory Results POC Whole Bld Glucose 165 mg/dL (70 - 100) H 01/15/20 07:45 Ur Specific [place] 1.015 (1.002-1.030) 01/14/20 08:37 Urine HCG, Qual NEGATIVE 01/14/20 08:37 Blood Type B POSITIVE 01/14/20 09:30 Blood Type Recheck B POSITIVE 01/14/20 09:26 Antibody Screen NEGATIVE 01/14/20 09:30
[2020-01-15] MEDS ORDERED: INSULIN GLARGINE 300 UNIT/3 ML PEN SUBQ SCH (09:00)
[2020-01-15 10:07] LABS: CALCIUM 8.5 mg/dL (8.5-10.3); CREATININE 0.7 mg/dL (0.4-1.0); MAGNESIUM 1.8 mg/dL (1.7-2.8)
[2020-01-15 10:56] LABS: BASOPHILS % (AUTO) 0.3 %; EOSINOPHILS % (AUTO) 0.3 %; HGB - HEMOGLOBIN 11.1 g/dL (12.0-16.0); LYMPHOCYTES # (AUTO) 1.6 10^3/uL (1.5-3.5); LYMPHOCYTES % (AUTO) 21.1 %; MEAN CORPUSCULAR HEMOGLOBIN 28.6 pg (27.0-31.0); MEAN CORPUSCULAR HGB CONC 34.6 g/dL (32.0-36.0); MEAN CORPUSCULAR VOLUME 82.7 fL (81.0-99.0); MEAN PLATELET VOLUME 9.9 fL (7.9-10.8); MONOCYTES # (AUTO) 0.4 10^3/uL (0.0-1.0); MONOCYTES % (AUTO) 5.5 %; NEUTROPHILS # (AUTO) 5.7 10^3/uL (1.5-6.6); NEUTROPHILS % (AUTO) 72.5 %; PLT - PLATELET COUNT 185 10^3/uL (130-450); RED BLOOD COUNT 3.88 10^6/uL (4.20-5.40); RED CELL DISTRIBUTION WIDTH 13.7 % (12.0-15.0); WHITE BLOOD COUNT 7.8 x10^3/uL (4.8-10.8)
[2020-01-15 12:10] LABS: HEMOGLOBIN A1c% 6.6 % (4.27-6.07)
== END 2020-01-15 10:52 | disposition home or self-care (01) ==
LOC: SDS 08:13 → MS2 16:40 → SDS 01-15 10:52
PROVIDERS: ATTEND Obstetrics & Gynecology
PROC: 0UT7FZZ Resection of Bilateral Fallopian Tubes, Via Natural or Artificial Opening With Percutaneous Endoscopic Assistance (ICD-10-PCS; 2020-01-14)
PROC: 0UT9FZZ Resection of Uterus, Via Natural or Artificial Opening With Percutaneous Endoscopic Assistance (ICD-10-PCS; principal; 2020-01-14 12:40)
DX: N92.0 Excessive and frequent menstruation with regular cycle (principal); N94.6 Dysmenorrhea, unspecified; E11.9 Type 2 diabetes mellitus without complications; Z79.4 Long term (current) use of insulin; Z79.84 Long term (current) use of oral hypoglycemic drugs
CPT/HCPCS: 36415; 58552; 80048; 81025; 83036; 83735; 85025; 86850; 86900; 86901; A9270; J0131; J0690; J1170; J7120

== ENCOUNTER 2020-01-27 11:43 | Emergency (ER) | payer OTHER ==
--- NOTE | 2020-01-27 12:26 | ED Physician Documentation ---
History of Present Illness - Stated complaint Stated Complaint: LOSS OF VISION R EYE - Chief complaint Chief Complaint: Neuro - History obtained from History obtained from: Patient - History of Present Illness Timing: Prior to arrival - Additonal information Additional information: 44-year-old female presents to the emergency department with acute change in vision in her right eye. She reports that at about 1015 this a.m. she had just gotten out of the shower and walked downstairs to watch TV. She noted that she suddenly had only sees red in the central vision of her right eye. The peripheral vision she is able to differentiate color. She denies any eye pain or headaches. No recent vomiting falls or trauma. She did undergo a hysterectomy approximately 2 weeks ago. She is also a diabetic on Lantus. Her blood sugars typically run in the low 120s 130s. At the moment of vision change she did have a blood sugar of about 200. Patient does wear corrective lenses. She denies any visual changes or loss of vision in the left eye. Review of Systems Constitutional: reports: Reviewed and negative Eyes: reports: Loss of vision ("central vision red" in the right eye). denies: Photophobia, Discharge, Irritation Ears: reports: Loss of hearing Nose: reports: Reviewed and negative Throat: reports: Reviewed and negative Cardiac: denies: Chest pain / pressure, Palpitations, Pedal edema, Calf pain Respiratory: denies: Dyspnea, Cough, Hemoptysis, Wheezing GI: reports: Reviewed and negative : reports: Reviewed and negative Skin: reports: Reviewed and negative Musculoskeletal: reports: Reviewed and negative Neurologic: denies: Generalized weakness, Focal weakness, Numbness, Difficulty speaking, Near syncope, Syncope, Seizure, Confused, Altered mental status, Headache, Head injury, LOC Psychiatric: reports: Reviewed and negative PD PAST MEDICAL HISTORY - Past Medical History Cardiovascular: None Respiratory: None Neuro: Migraines Endocrine/Autoimmune: Type 2 diabetes GI: None : None HEENT: None Psych: None Musculoskeletal: None Derm: None - Past Surgical History Past Surgical History: No General: Cholecystectomy /[employer]: Tubal ligation - Present Medications Home Medications: Ambulatory Orders Medication Instructions Recorded Confirmed Insulin Glargine [Lantus Solostar] 12 units ABBOJECT DAILY 01/17/18 01/14/20 Exenatide Microspheres [Bydureon 2 mg SQ OAW 01/06/20 01/14/20 Pen] Ibuprofen [Motrin] 600 mg PO DAILY 01/14/20 01/14/20 - Allergies Allergies/Adverse Reactions: Allergies Allergy/AdvReac Type Severity Reaction Status Date / Time lisinopril Allergy Anaphylaxis Verified 01/27/20 11:50 - Social History Does the pt smoke?: No Smoking Status: Never smoker Does the pt drink ETOH?: No Does the pt have substance abuse?: No - Immunizations Immunizations are current?: Yes - POLST Patient has POLST: No POLST Status: Full Code PD ED PE EXPANDED - General General: Alert, Anxious - Eyes Eyes: PERRL, Normal accommodation, Other (no visual field deficits; reports vision as red in right eye, but able to see color in peripheral epperson). No: Unequal pupils - Neck Neck: Supple w/out meningeal sx. No: No tenderness - Cardiac Cardiac: Regular Rate, Regular Rhythm, Radial strong equal, Femoral strong equal, Pedal strong equal, Cap refill < 2 sec - Respiratory Respiratory: Clear to ausultation harpreet. No: Distress, Labored - Abdomen Abdomen: Normal Bowel sounds. No: Tender to palpation - Neuro Neuro: Alert and Oriented X 3, CNII-XII intact, PERRL, Cerebellar nl, Normal gait, Normal finger nose, Normal speech. No: Nystagmus Results - Vitals Vitals: Vital Signs - 24 hr 01/27/20 01/27/20 01/27/20 11:47 12:20 12:30 Temperature 36.9 C Heart Rate 93 94 91 Respiratory 18 18 13 Rate Blood Pressure 133/73 H 115/78 102/70 O2 Saturation 100 100 Oxygen O2 Source Room air PD MEDICAL DECISION MAKING - ED course Complexity details: considered differential, d/w patient, d/w family, d/w hr shared services consultant (Dr. Matamoros) ED course: 44-year-old diabetic female presents the emergency department with acute change in vision in her right eye and where she reports having red in the central vision but able to differentiate color in the peripheral vision. No change in vision to the left eye. She is noted to have diabetes as well as a recent hysterectomy. She denies any headache or recent vomiting. I did speak with Dr. Matamoros and hands and dial inspector on-call who is located in [place]. He requested that we send her directly to his office for further evaluation. The patient and her were given the address and they will proceed directly to his office from the emergency department for further evaluation. 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 Matamoros an opthamologist Dr. Dmitriy Matamoros [facility] [place] [id number]
[2020-01-27 12:35] VITALS: BP 102/70
== END 2020-01-27 12:58 | disposition home or self-care (01) ==
LOC: ED 11:43
DX: H54.61 Unqualified visual loss, right eye, normal vision left eye (principal); E11.9 Type 2 diabetes mellitus without complications; Z79.4 Long term (current) use of insulin
CPT/HCPCS: 80053; 83690; 85025; 85610; 85730; 99283; 99284

== ENCOUNTER 2022-10-11 10:30 | Outpatient (CLI) | payer OTHER ==
--- NOTE | 2022-10-11 12:59 | XRAY Report ---
PROCEDURE: Cervical Spine 2 View INDICATIONS: TORTICOLLIS TECHNIQUE: 4 view(s) of the cervical spine were acquired. COMPARISON: None. FINDINGS: Bones: No fractures or dislocations to the T1 level. The lateral masses of C1 appear intact on the odontoid view. No suspicious bony lesions. Soft tissues: No prevertebral soft tissue swelling. IMPRESSION: No acute abnormality of the cervical spine. Reviewed by: Miguel Angel Rogers on 10/11/2022 12:58 PM PDT Approved by: Miguel Angel Rogers on 10/11/2022 12:58 PM PDT Station ID: [id number]
== END 2022-10-11 10:45 | disposition home or self-care (01) ==
LOC: DI.N 10:30
PROVIDERS: ATTEND Registered Nurse
DX: M43.6 Torticollis (principal)

== ENCOUNTER 2023-02-09 07:45 | Outpatient (CLI) | payer OTHER ==
--- NOTE | 2023-02-11 12:44 | MRI Report ---
PROCEDURE: SHOULDER WO - RT INDICATIONS: SHOULDER PAIN TECHNIQUE: Noncontrast oblique coronal T2 fast spin echo with fat saturation, oblique sagittal T1 spin echo and T2 fast spin echo with fat saturation, axial T1 spin echo and T2 fast spin echo with fat saturation a nd 3-D gradient echo through the shoulder. COMPARISON: None. FINDINGS: Image quality: Excellent. Rotator cuff: There is low-grade partial bursal sided tearing of the supraspinatus tendon at the dis mike insertion. Focal low-grade partial intrasubstance tearing is seen at the distal infraspinatus ten don insertion. Findings are superimposed on chronic supraspinatus and infraspinatus tendinosis. The t eres minor and subscapularis tendons are intact. There is no significant rotator cuff muscle atrophy. Bones and bursae: No acute trabecular bone injury or fracture. Mild partial thickness cartilage irreg ularity in the glenohumeral joint. Mild degenerative spurring is seen in the glenoid rim. Mild to mod erate degenerative changes are seen at the acromioclavicular joint. Small amount of fluid is seen wit hin the subacromial/subdeltoid bursa. No significant glenohumeral effusion. Capsule and soft tissues: Suspected chronic tearing at the posterosuperior labrum. The labrum otherwi se appears to be intact. The proximal biceps long head tendon demonstrates mild tendinosis. There is effacement of the normal fat signal in the rotator normal. The anterior band of the inferior glenohum eral ligament appears mildly thickened. IMPRESSION: 1.Low-grade partial bursal sided tearing of the supraspinatus tendon at the distal insertion superimp osed on supraspinatus and infraspinatus tendinosis. Focal low-grade partial intrasubstance tearing is seen at the infraspinatus tendon insertion. 2.Mild proximal biceps long head tendinosis. 3.Chronic nondisplaced tearing of the posterosuperior labrum. Mild grade 2 glenohumeral chondromalaci a. 4.Mild to moderate degenerative changes of the acromioclavicular joint. 5.Small subacromial/subdeltoid bursal effusion or mild bursitis. 6.Partial effacement of the rotator interval fat and mild thickening of the inferior glenohumeral lig ament are nonspecific, but can be seen in the setting of the clinical syndrome of adhesive capsulitis . Reviewed by: Spencer Fitzgerald MD on 02/11/2023 12:42 PM PDT Approved by: Spencer Fitzgerald MD on 02/11/2023 12:42 PM PDT Station ID: [id number]
--- NOTE | 2023-02-11 12:45 | MRI Report ---
PROCEDURE: SHOULDER WO - LT INDICATIONS: SHOULDER PAIN TECHNIQUE: Noncontrast oblique coronal T2 fast spin echo with fat saturation, oblique sagittal T1 spin echo and T2 fast spin echo with fat saturation, axial T1 spin echo and T2 fast spin echo with fat saturation t hrough the shoulder. COMPARISON: None. FINDINGS: Image quality: Excellent. Rotator cuff: Mild supraspinatus and infraspinatus tendinosis with low-grade bursal surface fraying but no significant tendon tearing. The teres minor and subscapularis tendons are intact. There is no significant rotator cuff muscle atrophy. Mild soft tissue edema is seen along the lateral margin of t he deltoid muscle, which may be related to muscle strain or recent intramuscular injection. Bones and bursae: No acute trabecular bone injury or fracture. Mild partial thickness cartilage irreg ularity in the glenohumeral joint. Mild scarring is seen in the glenoid rim. Mild degenerative change s are seen at the acromioclavicular joint. There is a small amount of fluid in the subacromial/subdel toid bursa. A physiologic amount of glenohumeral joint fluid is present. Capsule and soft tissues: Diminutive appearance of the posterior labrum is suspicious for chronic par tial tearing. The proximal biceps long head tendon is intact. There is effacement of the normal fat s ignal in the rotator interval. There is mild thickening of the anterior band of the inferior glenohum eral ligament. IMPRESSION: 1.Mild supraspinatus and infraspinatus tendinosis with low-grade bursal surface fraying but no signif icant rotator cuff tendon tear. 2.Edema within the lateral portion of the included deltoid muscle may be secondary to a low-grade mus glenn strain versus recent intramuscular injection. 3.Chronic partial tearing of the posterior labrum. Grade 2 chondromalacia in the glenohumeral joint. 4.Mild acromioclavicular joint osteoarthrosis. 5.Small subacromial/subdeltoid bursal effusion or mild bursitis. 6.Partial effacement of the rotator interval fat and mild thickening of the inferior glenohumeral lig ament are nonspecific, but can be seen in the setting of the clinical syndrome of adhesive capsulitis . Reviewed by: Spencer Fitzgerald MD on 02/11/2023 12:44 PM PDT Approved by: Spencer Fitzgerald MD on 02/11/2023 12:44 PM PDT Station ID: [id number]
--- NOTE | 2023-02-11 12:57 | MRI Report ---
PROCEDURE: HIP WO - LT INDICATIONS: LEFT HIP PAIN TECHNIQUE: Noncontrast coronal T1 spin echo and STIR through the bony pelvis. Coronal and axial T2 fast spin ec ho with fat saturation, sagittal T1 spin echo, and oblique axial T2 fast spin echo with fat saturatio n through the hip. COMPARISON: None. FINDINGS: Image quality: Excellent. Bones and joints: Bone marrow of the pelvic ring and proximal femurs show normal signal throughout. No intraosseous lesions or fractures. No avascular necrosis of the femoral heads. Mild degenerative changes in the pubic symphysis. There is mild facet hypertrophy in the included lower lumbar spine. Tendons: There is tendinosis and low-grade partial intrasubstance tearing of the gluteus medius tend on at its distal insertion. Mild gluteus minimus tendinosis. Trace trochanteric bursal fluid. The kori opsoas tendon appears intact, without adjacent bursal fluid collections. The origin of the hamstring tendon demonstrates mild tendinosis. The tendons for the direct and indirect heads of the rectus fe giuliano muscle appear intact. Labrum and cartilage: Mildly diminutive and irregular appearance of the anterior to superior labrum i s suspicious for chronic tearing. There is over coverage of the femoral head by the acetabulum, which can be seen in the setting of pincer-type femoroacetabular impingement. No focal cartilage defect is seen. Soft tissues: Visualized muscles demonstrate normal bulk and internal signal. The proximal sciatic neurovascular bundle appears normal adjacent to the hamstring tendons. No acute abnormality is seen i n the included pelvis. IMPRESSION: 1.Chronic tearing of the anterosuperior to superior labrum. Mild over-coverage of the femoral head by the acetabulum can be seen in the setting of pincer-type femoroacetabular impingement. 2.Low-grade partial intrasubstance tearing of the left gluteus medius tendon at its insertion onto th e greater trochanter superimposed on chronic gluteus medius and minimus tendinosis. 3.Mild proximal hamstring tendinosis. 4.Mild degenerative changes in the pubic symphysis and included lumbar spine. Reviewed by: Spencer Fitzgerald MD on 02/11/2023 12:56 PM PDT Approved by: Spencer Fitzgerald MD on 02/11/2023 12:56 PM PDT Station ID: [id number]
== END 2023-02-09 07:46 | disposition home or self-care (01) ==
LOC: DI 07:45
PROVIDERS: ATTEND Student in an Organized Health Care Education/Training Program
DX: M75.111 Incomplete rotator cuff tear or rupture of right shoulder, not specified as traumatic (principal); M67.813 Other specified disorders of tendon, right shoulder; S43.431A Superior glenoid labrum lesion of right shoulder, initial encounter; M19.011 Primary osteoarthritis, right shoulder; M75.82 Other shoulder lesions, left shoulder; S43.492D Other sprain of left shoulder joint, subsequent encounter; M94.212 Chondromalacia, left shoulder; M19.012 Primary osteoarthritis, left shoulder